=== PATIENT | female | born 1975 | race African-American/Black ===

== ENCOUNTER 2016-10-06 21:49 | Inpatient (IN) | payer MEDICAID ==
[~2016-10-06] VITALS: Ht 175.3 cm; Wt 114.1 kg
[~2016-10-06 21:49] MED LIST: CART240C4 PO; HYDR-2768 PO; LISI-363 PO; METH750T2 PO; NAPR-576 PO; NAPR250T57 PO; ULTR50TA PO
[2016-10-06 21:50] VITALS: BP 236/123; PULSE 101; RESP 20; TEMP 98.5; O2SAT 97
[2016-10-06 21:55] VITALS: BP 236/128; PULSE 93; RESP 32; TEMP 99; O2SAT 96
[2016-10-06 22:00] VITALS: O2SAT 96
[2016-10-06] MEDS ORDERED: HYDROCHLOROTHIAZIDE 25 MG TAB PO ONE (22:15)
[2016-10-06] MEDS ORDERED: LISINOPRIL 20 MG TAB PO ONE (22:15)
[2016-10-06] MEDS ORDERED: SODIUM CHLORIDE 0.9% FLUSH 10 ML FLUSH IV FLUSH PRN (22:15)
--- NOTE | 2016-10-06 22:17 | PD ---
HPI Chief Complaint: abdominal pain Time Seen by Provider: 22:17 Travel History International Travel<30 days: No Contact w/Intl Traveler<30days: No History of Present Illness HPI 41-year-old female with a history of hypertension, diabetes, chronic low back pain presents to the emergency department for evaluation of epigastric abdominal pain for one week. Patient states the pain has been intermittent for the past week and his but, more constant over the past 2 days. States that the pain is aggravated with eating and drinking. Describes the pain as a sharp burning pain in her epigastric region. Denies any fever, chills, nausea, vomiting, diarrhea, constipation, bloody stool, chest pain, shortness of breath , cough or cold symptoms, dysuria. Denies however has had irregular menses over the past month. Denies any prior abdominal surgeries. The patient does take NSAIDs daily for her chronic low back pain. States that she did not take her blood pressure medications today. No other complaints. PFSH Past Medical History Blood Disorders: No Cardiovascular Problems: Yes High Cholesterol: Yes Cerebrovascular Accident: No Diabetes: No Diminished Hearing: No Hypertension: Yes Musculoskeletal: Yes (LOW BACK PAIN) Myocardial Infarction: No Renal Failure: No Ulcer: No : 2 Para: 2 Miscarriage: 0 : 0 Past Surgical History Section: Yes (X 2) Social History Alcohol Use: Yes (SOCIAL) Tobacco Use: Yes (1PP WEEK) Substance Use: No Allergies-Medications (Allergen,Severity, Reaction): Coded Allergies: No Known Allergies (Verified , 04/21/16) Reported Meds & Prescriptions Reported Meds & Active Scripts Active Naproxen 500 Mg Tab 500 Mg PO Q12HR Robaxin (Methocarbamol) 750 Mg Tab 750 Mg PO Q8HR Ultram (Tramadol HCl) 50 Mg Tab 50 Mg PO Q4H PRN Hctz (Hydrochlorothiazide) 25 Mg Tab 25 Mg PO DAILY 30 Days Lisinopril 20 mg (Lisinopril) 20 Mg Tab 1 Tab PO DAILY 30 Days Cartia XT 240 mg (DILTIAZEM XT 240 mg (Cartia)) 240 Mg/24 Hr Cap 240 Mg PO DAILY 30 Days Reported Naprosyn (Naproxen) 250 Mg Tab 250 Mg PO Q6 PRN Review of Systems Except as stated in HPI: all other systems reviewed are Neg Physical Exam Narrative GENERAL: Well-nourished and well-developed pleasant female patient in moderate amount of pain but no acute distress. SKIN: Warm and dry. HEAD: Normocephalic and atraumatic. EYES: No injection, drainage, or hyphema noted. PERRLA. EOMI. ENT: No nasal drainage noted. Oropharynx is clear. NECK: Supple and the trachea is midline. CARDIOVASCULAR: Regular rate and rhythm. RESPIRATORY: Breath sounds are equal bilaterally with no accessory muscle use, wheezing, rhonchi, or crackles. GASTROINTESTINAL: Epigastric tenderness to palpation. No rebound tenderness or guarding. Negative Byrnes's sign. Negative McBurney's point. Abdomen is soft and nondistended. MUSCULOSKELETAL: No obvious deformities, swelling, cyanosis, or ecchymosis is present throughout the upper and lower extremities. Patient has full range of motion without any signs of neurovascular compromise. NEUROLOGICAL: Awake, alert, and oriented. Normal speech and gait. Cranial nerves are grossly intact. Data Data Last Documented VS Vital Signs Date Time Temp Pulse Resp B/P Pulse Ox O2 Delivery O2 Flow Rate FiO2 10/06/16 21:50 98.5 101 20 236/123 97 Room Air Orders Complete Blood Count With Diff (10/06/16 22:11) Comprehensive Metabolic Panel (10/06/16 22:11) Lipase (10/06/16 22:11) Iv Access Insert/Monitor (10/06/16 22:11) Ecg Monitoring (10/06/16 22:11) Oximetry (10/06/16 22:11) Sodium Chloride 0.9% Flush (Ns Flush) (10/06/16 22:15) Ed Urine Pregnancytest Poc (10/06/16 22:11) Lisinopril (Prinivil) (10/06/16 22:15) Hydrochlorothiazide (Hydrodiuril) (10/06/16 22:15) Chest, Single Ap (10/06/16 22:11) Ondansetron Inj (Zofran Inj) (10/06/16 22:45) Famotidine Inj (Pepcid Inj) (10/06/16 22:45) Morphine Inj (Morphine Inj) (10/06/16 22:45) Us Abdomen Gallbladder (10/06/16 ) Labs Laboratory Tests Test 10/06/16 22:15 White Blood Count 12.7 TH/MM3 Red Blood Count 4.85 MIL/MM3 Hemoglobin 13.2 GM/DL Hematocrit 41.1 % Mean Corpuscular Volume 84.9 FL Mean Corpuscular Hemoglobin 27.2 PG Mean Corpuscular Hemoglobin 32.0 % Concent Red Cell Distribution Width 13.5 % Platelet Count 251 TH/MM3 Mean Platelet Volume 9.7 FL Neutrophils (%) (Auto) 74.7 % Lymphocytes (%) (Auto) 18.3 % Monocytes (%) (Auto) 5.9 % Eosinophils (%) (Auto) 0.8 % Basophils (%) (Auto) 0.3 % Neutrophils # (Auto) 9.5 TH/MM3 Lymphocytes # (Auto) 2.3 TH/MM3 Monocytes # (Auto) 0.7 TH/MM3 Eosinophils # (Auto) 0.1 TH/MM3 Basophils # (Auto) 0.0 TH/MM3 CBC Comment DIFF FINAL Differential Comment Sodium Level 136 MEQ/L Potassium Level 4.1 MEQ/L Chloride Level 101 MEQ/L Carbon Dioxide Level 27.8 MEQ/L Anion Gap 7 MEQ/L Blood Urea Nitrogen 15 MG/DL Creatinine 0.91 MG/DL Estimat Glomerular Filtration 83 ML/MIN Rate Random Glucose 302 MG/DL Calcium Level 9.6 MG/DL Total Bilirubin 0.3 MG/DL Aspartate Amino Transf 10 U/L (AST/SGOT) Alanine Aminotransferase 21 U/L (ALT/SGPT) Alkaline Phosphatase 86 U/L Total Protein 8.6 GM/DL Albumin 3.8 GM/DL Lipase 885 U/L [facility] Medical Decision Making Medical Screen Exam Complete: Yes Emergency Medical Condition: Yes Differential Diagnosis Gastritis versus PUD versus gastroenteritis versus cholecystitis versus pancreatitis Narrative Course 41-year-old female presents to the emergency department for evaluation of epigastric abdominal pain intermittently after eating for the past week. Patient is afebrile. She is tachycardic with a heart rate of 101 bpm. She is hypertensive with a blood pressure 236/123, she admittedly did not take her antihypertensive medications today. Otherwise vital signs within normal limits. She is epigastric tenderness to palpation. Nail signs. IV access is obtained, labs were drawn and sent. ED urine test is negative. Patient is administered her regular doses of lisinopril 20 mg and I do course Dyazide 25 mg orally as well as morphine, Pepcid and Zofran. CBC shows elevated white blood count of 12.7, otherwise unremarkable. CMP shows hyperglycemia with a glucose of 302. Lipase is elevated 885. Gallbladder ultrasound has been ordered and is pending. Patient signed out to Dr. Lau who will assume care of the patient and disposition. Carri Meza Oct 06, 2016 22:17
--- NOTE | 2016-10-06 22:27 | RADRPT ---
EXAM DATE/TIME: 10/06/2016 22:23 [facility] COMPARISON: CHEST SINGLE AP, November 03, 2015, 12:11. INDICATIONS : Chest and upper abdominal pain. MEDICAL HISTORY : None. SURGICAL HISTORY : None. ENCOUNTER: Initial ACUITY: 2 days PAIN SCORE: 10/10 LOCATION: chest FINDINGS: A single view of the chest demonstrates the lungs to be symmetrically aerated without evidence of mas s, infiltrate or effusion. The cardiomediastinal contours are unremarkable. Osseous structures are intact. No free air is noted. CONCLUSION: No acute disease. No free air is noted. Anthony Fairbanks MD on October 06, 2016 at 22:25 Board Certified Radiologist. This report was verified electronically.
[2016-10-06 22:28] LABS: AUTOMATED NEUTROPHIL # 9.5 TH/MM3 (1.8-7.7); BASOPHIL % 0.3 % (0.0-2.0); EOSINOPHIL # 0.1 TH/MM3 (0-0.4); EOSINOPHIL % 0.8 % (0.0-4.0); HEMATOCRIT 41.1 % (35.0-46.0); HEMO FLAGS DIFF FINAL; LYMPH % 18.3 % (9.0-44.0); LYMPHOCYTE # 2.3 TH/MM3 (1.0-4.8); MEAN CELL VOLUME 84.9 FL (80.0-100.0); MEAN CORPUSCULAR HEMOGLOBIN 27.2 PG (27.0-34.0); MONO % 5.9 % (0.0-8.0); NEUT % 74.7 % (16.0-70.0); PLATELET COUNT 251 TH/MM3 (150-450); RED BLOOD COUNT 4.85 MIL/MM3 (4.00-5.30); RED CELL DISTRIBUTION WIDTH 13.5 % (11.6-17.2); WHITE BLOOD COUNT 12.7 TH/MM3 (4.0-11.0)
[2016-10-06] MEDS ORDERED: MORPHINE SULFATE 4 MG/ML INJ IV PUSH ONE (22:45)
[2016-10-06] MEDS ORDERED: ONDANSETRON HCL 4 MG/2 ML VIAL IVP ONE (22:45)
[2016-10-06] MEDS ORDERED: FAMOTIDINE 20 MG/2 ML VIAL IV PUSH ONE (22:45)
[2016-10-06 22:47] LABS: ALT (GPT) 21 U/L (10-53); ANION GAP 7 MEQ/L (5-15); AST (GOT) 10 U/L (15-37); BICARBONATE 27.8 MEQ/L (21.0-32.0); BLOOD UREA NITROGEN 15 MG/DL (7-18); CHLORIDE 101 MEQ/L (98-107); GLOMERULAR FILTRATION RATE 83 ML/MIN (>89); POTASSIUM 4.1 MEQ/L (3.5-5.1); SODIUM (NA) 136 MEQ/L (136-145)
[2016-10-06 22:49] LABS: ALKALINE PHOSPHATASE 86 U/L (45-117); TOTAL BILIRUBIN ADULT 0.3 MG/DL (0.2-1.0)
[2016-10-06 23:01] VITALS: BP 192/106; PULSE 85
[2016-10-06] MEDS ORDERED: NAPR500 PO (23:02)
[2016-10-06] MEDS ORDERED: LISI-515 PO (23:02)
[2016-10-06] MEDS ORDERED: HYDR25TA5 PO (23:02)
[2016-10-06] MEDS ORDERED: CART240C PO (23:02)
[2016-10-07] VITALS (11 sets, daily range): BP systolic 159–215; BP diastolic 78–114; PULSE 76–96; RESP 16–26; TEMP 97.3–98; O2SAT 97–99
--- NOTE | 2016-10-07 00:28 | RADRPT ---
EXAM DATE/TIME: 10/06/2016 23:48 [facility] COMPARISON: No previous studies available for comparison. INDICATIONS : Right upper quadrant pain. MEDICAL HISTORY : Hypertension. Hypercholesterolemia. Lower back pain. SURGICAL HISTORY : section. ENCOUNTER: Initial ACUITY: 1 week PAIN SCORE: 10/10 LOCATION: Right upper quadrant MEASUREMENTS: LIVER: 18.8 cm length COMMON DUCT: 7 mm RIGHT KIDNEY: 11.1 x 4.7 x 4.7 cm FINDINGS: LIVER: Normal echotexture without focal lesion or ductal dilatation. Mildly prominent in size. COMMON DUCT: No intraluminal mass or stone visualized. GALLBLADDER: Contains no stones, demonstrates no wall thickening or pericholecystic fluid. PANCREAS: The visualized portions are within normal limits. RIGHT KIDNEY: No evidence of hydronephrosis, stone, or mass. CONCLUSION: 1. Liver mildly enlarged to 19 cm. No gallstones or biliary ductal dilatation. No free fluid. Right k idney unremarkable. Kenn Caraballo MD on October 07, 2016 at 0:20 Board Certified Radiologist. This report was verified electronically.
[2016-10-07] MEDS ORDERED: HYDROmorphone HCL PF 1 MG/ML VIAL IV PUSH ONE (00:45)
--- NOTE | 2016-10-07 00:48 | PD ---
Data Data Last Documented VS Vital Signs Date Time Temp Pulse Resp B/P Pulse Ox O2 Delivery O2 Flow Rate FiO2 10/06/16 23:01 85 192/106 10/06/16 21:55 99.0 32 96 10/06/16 21:50 Room Air Orders Complete Blood Count With Diff (10/06/16 22:11) Comprehensive Metabolic Panel (10/06/16 22:11) Lipase (10/06/16 22:11) Iv Access Insert/Monitor (10/06/16 22:11) Ecg Monitoring (10/06/16 22:11) Oximetry (10/06/16 22:11) Sodium Chloride 0.9% Flush (Ns Flush) (10/06/16 22:15) Ed Urine Pregnancytest Poc (10/06/16 22:11) Lisinopril (Prinivil) (10/06/16 22:15) Hydrochlorothiazide (Hydrodiuril) (10/06/16 22:15) Chest, Single Ap (10/06/16 22:11) Ondansetron Inj (Zofran Inj) (10/06/16 22:45) Famotidine Inj (Pepcid Inj) (10/06/16 22:45) Morphine Inj (Morphine Inj) (10/06/16 22:45) Us Abdomen Gallbladder (10/06/16 ) Hydromorphone Pf Inj (Dilaudid Pf Inj) (10/07/16 00:45) Labs Laboratory Tests Test 10/06/16 22:15 White Blood Count 12.7 TH/MM3 Red Blood Count 4.85 MIL/MM3 Hemoglobin 13.2 GM/DL Hematocrit 41.1 % Mean Corpuscular Volume 84.9 FL Mean Corpuscular Hemoglobin 27.2 PG Mean Corpuscular Hemoglobin 32.0 % Concent Red Cell Distribution Width 13.5 % Platelet Count 251 TH/MM3 Mean Platelet Volume 9.7 FL Neutrophils (%) (Auto) 74.7 % Lymphocytes (%) (Auto) 18.3 % Monocytes (%) (Auto) 5.9 % Eosinophils (%) (Auto) 0.8 % Basophils (%) (Auto) 0.3 % Neutrophils # (Auto) 9.5 TH/MM3 Lymphocytes # (Auto) 2.3 TH/MM3 Monocytes # (Auto) 0.7 TH/MM3 Eosinophils # (Auto) 0.1 TH/MM3 Basophils # (Auto) 0.0 TH/MM3 CBC Comment DIFF FINAL Differential Comment Sodium Level 136 MEQ/L Potassium Level 4.1 MEQ/L Chloride Level 101 MEQ/L Carbon Dioxide Level 27.8 MEQ/L Anion Gap 7 MEQ/L Blood Urea Nitrogen 15 MG/DL Creatinine 0.91 MG/DL Estimat Glomerular Filtration 83 ML/MIN Rate Random Glucose 302 MG/DL Calcium Level 9.6 MG/DL Total Bilirubin 0.3 MG/DL Aspartate Amino Transf 10 U/L (AST/SGOT) Alanine Aminotransferase 21 U/L (ALT/SGPT) Alkaline Phosphatase 86 U/L Total Protein 8.6 GM/DL Albumin 3.8 GM/DL Lipase 885 U/L [facility] Medical Record Reviewed: Yes Supervised Visit with DIAZ: Yes Narrative Course I, Dr. Lau, have reviewed the advance practice practitioner's documentation and am in agreement, met with the patient face to face, made the diagnosis, and the medical decision making was done by me. *My assessment and Findings: CBC & BMP Diagram 10/06/16 22:15 LFTs normal Lipase 885 Last 24 hours Impressions Chest X-Ray 10/06/16 2211 Signed Impressions: Service Date/Time: Thursday, October 06, 2016 22:23 - CONCLUSION: No acute disease. No free air is noted. Anthony Fairbanks MD Gall Bladder Ultrasound 10/06/16 0000 Signed Impressions: Service Date/Time: Thursday, October 06, 2016 23:48 - CONCLUSION: 1. Liver mildly enlarged to 19 cm. No gallstones or biliary ductal dilatation. No free fluid. Right kidney unremarkable. Kenn Caraballo MD Reassessed at 1246AM: persistent pain, worse with palpation. Pt has pancreatitis. No evidence GB disease on ultrasound. Admission for IVF and pain control. Discussed with Dr. Peralta for [facility]. Diagnosis Primary Impression: Pancreatitis Qualified Code: K85.90 - Acute pancreatitis, unspecified complication status, unspecified pancreatitis type Admitting Information Admitting Physician Requests: Jordan Brice MD Oct 07, 2016 00:48
[2016-10-07] MEDS ORDERED: ONDANSETRON HCL 4 MG/2 ML VIAL IVP PRN (01:15)
[2016-10-07] MEDS ORDERED: BISACODYL 10 MG SUPP RECTAL PRN (01:15)
[2016-10-07] MEDS ORDERED: NALOXONE HCL 0.4 MG/ML AMP IV PRN ×2 (01:15)
[2016-10-07] MEDS ORDERED: PROCHLORPERAZINE 25 MG SUPP RECTAL PRN (01:15)
[2016-10-07] MEDS ORDERED: SODIUM CHLORIDE 0.9% FLUSH 10 ML FLUSH IV FLUSH PRN (01:15)
[2016-10-07] MEDS: HYDROmorphone HCL PF 1 MG/ML VIAL IV PRN ×6 (01:18→20:24)
[2016-10-07] MEDS: SODIUM CHLOR 0.9% 1000 ML INJ 1,000 ML IV SCH ×4 (01:24→22:25)
[2016-10-07] MEDS ORDERED: ENOXAPARIN SODIUM 40 MG/0.4 ML SYRINGE SQ SCH (02:00)
[2016-10-07] MEDS: oxyCODONE/ACETAMINOPHEN 5 MG/325 MG TAB PO PRN ×2 (03:47→10:23)
[2016-10-07] MEDS: cloNIDine HCL 0.1 MG TAB PO PRN ×2 (03:49→10:23)
[2016-10-07] MEDS ORDERED: PANTOPRAZOLE SODIUM 40 MG VIAL IV PUSH ONE (06:15)
--- NOTE | 2016-10-07 06:34 | HHI.HP ---
[facility] Douglas Morales MD Admission Diagnosis Acute Pancreatitis Diagnoses: Travel History International Travel<30 Days: No Contact w/Intl Traveler <30 Da: No Traveled to Known Affected Are: No History of Present Illness 41-year-old female with a history of hypertension who presents with a one-week history of sharp, nonradiating, burning epigastric pain, worse with eating or drinking. Accompanied by generalized fatigue over the past week. Denies any chest pain, shortness of breath, nausea, vomiting, diarrhea, constipation. She does take naproxen on a regular basis for back pain. Review of Systems Performed and negative except for history of present illness and past medical history. Past Family Social History Past Medical History Hypertension Diabetes Low back pain Past Surgical History Reported Medications Reported Meds & Active Scripts Active Naproxen 500 Mg Tab 500 Mg PO Q12HR Robaxin (Methocarbamol) 750 Mg Tab 750 Mg PO Q8HR Ultram (Tramadol HCl) 50 Mg Tab 50 Mg PO Q4H PRN Hctz (Hydrochlorothiazide) 25 Mg Tab 25 Mg PO DAILY 30 Days Lisinopril 20 mg (Lisinopril) 20 Mg Tab 1 Tab PO DAILY 30 Days Cartia XT 240 mg (DILTIAZEM XT 240 mg (Cartia)) 240 Mg/24 Hr Cap 240 Mg PO DAILY 30 Days Reported Naprosyn (Naproxen) 250 Mg Tab 250 Mg PO Q6 PRN Allergies: Coded Allergies: No Known Allergies (Verified , 04/21/16) Family History Mother with diabetes, hypertension, kidney disease. Father uncertain. Social History Patient smokes 3 cigarettes per day for the past 12 years. Occasional alcohol use on special occasions. Positive marijuana use. Last time one week ago Physical Exam Vital Signs Vital Signs Date Time Temp Pulse Resp B/P Pulse Ox O2 Delivery O2 Flow Rate FiO2 10/07/16 05:22 18 10/07/16 03:50 96 18 173/85 99 Room Air 10/07/16 02:50 92 24 189/85 10/07/16 01:15 96 26 215/114 10/07/16 00:40 88 23 188/102 10/06/16 23:01 85 192/106 10/06/16 22:00 96 Room Air 10/06/16 21:55 99.0 93 32 236/128 96 10/06/16 21:50 98.5 101 20 236/123 97 Room Air Physical Exam GENERAL: This is a well-nourished, well-developed patient, appears in pain. He is oriented 3. Speech is clear. SKIN: No rashes, ecchymoses or lesions. Cool and dry. HEAD: Atraumatic. Normocephalic. No temporal or scalp tenderness. EYES: Pupils equal round and reactive. Extraocular motions intact. No scleral icterus. No injection or drainage. ENT: Nose without bleeding, purulent drainage or septal hematoma. Throat without erythema, tonsillar hypertrophy or exudate. Uvula midline. Airway patent. NECK: Trachea midline. No JVD or lymphadenopathy. Supple, nontender, no meningeal signs. CARDIOVASCULAR: Regular rate and rhythm without murmurs, gallops, or rubs. RESPIRATORY: Clear to auscultation. Breath sounds equal bilaterally. No wheezes , rales, or rhonchi. GASTROINTESTINAL: Abdomen soft, nondistended. No hepato-splenomegaly, or palpable masses. Patient does have epigastric tenderness to moderate palpation. No guarding. MUSCULOSKELETAL: Extremities without clubbing, cyanosis, or edema. No joint tenderness, effusion, or edema noted. No calf tenderness. Negative Homans sign bilaterally. NEUROLOGICAL: Awake and alert. Cranial nerves II through XII intact. Motor and sensory grossly within normal limits. Five out of 5 muscle strength in all muscle groups. Normal speech. Laboratory Laboratory Tests Test 10/06/16 22:15 White Blood Count 12.7 Red Blood Count 4.85 Hemoglobin 13.2 Hematocrit 41.1 Mean Corpuscular Volume 84.9 Mean Corpuscular Hemoglobin 27.2 Mean Corpuscular Hemoglobin 32.0 Concent Red Cell Distribution Width 13.5 Platelet Count 251 Mean Platelet Volume 9.7 Neutrophils (%) (Auto) 74.7 Lymphocytes (%) (Auto) 18.3 Monocytes (%) (Auto) 5.9 Eosinophils (%) (Auto) 0.8 Basophils (%) (Auto) 0.3 Neutrophils # (Auto) 9.5 Lymphocytes # (Auto) 2.3 Monocytes # (Auto) 0.7 Eosinophils # (Auto) 0.1 Basophils # (Auto) 0.0 CBC Comment DIFF FINAL Differential Comment Sodium Level 136 Potassium Level 4.1 Chloride Level 101 Carbon Dioxide Level 27.8 Anion Gap 7 Blood Urea Nitrogen 15 Creatinine 0.91 Estimat Glomerular Filtration 83 Rate Random Glucose 302 Calcium Level 9.6 Total Bilirubin 0.3 Aspartate Amino Transf 10 (AST/SGOT) Alanine Aminotransferase 21 (ALT/SGPT) Alkaline Phosphatase 86 Total Protein 8.6 Albumin 3.8 Lipase 885 Result Diagram: 10/06/16221410/06/162214 Imaging Last Impressions Chest X-Ray 10/06/162210 Signed Impressions: Service Date/Time: Thursday, October 06, 2016 22:23 - CONCLUSION: No acute disease. No free air is noted. Anthony Fairbanks MD Gall Bladder Ultrasound 10/06/16 0000 Signed Impressions: Service Date/Time: Thursday, October 06, 2016 23:48 - CONCLUSION: 1. Liver mildly enlarged to 19 cm. No gallstones or biliary ductal dilatation. No free fluid. Right kidney unremarkable. Kenn Caraballo MD Assessment and Plan Assessment and Plan //Pancreatitis //Epigastric pain //Leukocytosis. Secondary to pancreatitis -Lipase in the 800s. Mild liver enlargement, no gallstones or biliary ductal dilation. -IV Protonix due to the possibility of gastric ulcer from chronic NSAID use. Hold NSAIDs. -Triglyceride level in the morning -IV fluids. Watch her electrolytes. Pain control. //Accelerated hypertension. Likely secondary to missing home medications. Restart home medications. Hold hydrochlorothiazide due to acute cryptitis. Clonidine when necessary for systolic blood pressure over 180. //Marijuana and tobacco abuse. Counseling provided. Cessation strongly advised. //Diabetes mellitus. //Hypoglycemia on admission. -Insulin sliding scale. //Prophylaxis. SCDs. Lovenox. Discussed Condition With Patient, nurse, ED physician. Physician Certification 2 Midnight Certification Type: Admission for Inpatient Services Order for Inpatient Services The services are ordered in accordance with Medicare regulations or non- Medicare payer requirements, as applicable. In the case of services not specified as inpatient-only, they are appropriately provided as inpatient services in accordance with the 2-midnight benchmark. Estimated LOS (days): 3 days is the estimated time the patient will need to remain in the hospital, assuming treatment plan goals are met and no additional complications. Post-Hospital Plan: Not yet determined Clark Peralta MD Oct 07, 2016 06:34
[2016-10-07] MEDS ORDERED: INSULIN ASPART SUPPLEMENTAL SCALE SQ SCH (07:00)
[2016-10-07] MEDS ORDERED: GLUCAGON 1 MG/ML VIAL OTHER PRN (07:45)
[2016-10-07] MEDS ORDERED: DEXTROSE 50% IN WATER 50 ML VIAL(D50) IV PUSH PRN (07:45)
[2016-10-07] MEDS: SODIUM CHLORIDE 0.9% FLUSH 10 ML FLUSH IV FLUSH SCH ×2 (09:00→20:23)
[2016-10-07] MEDS ORDERED: LISINOPRIL 20 MG TAB PO SCH (09:00)
[2016-10-07] MEDS: DILTIAZEM-CD 240 MG CAP ER PO SCH (09:05)
[2016-10-07] MEDS: INSULIN ASPART SUPPLEMENTAL SCALE SQ SCH ×3 (11:05→20:23)
[2016-10-07] MEDS ORDERED: ENALAPRILAT 1.25 MG/ML VIAL IV PUSH PRN (12:00)
[2016-10-07] MEDS ORDERED: ENALAPRILAT 1.25 MG/ML VIAL IV PUSH ONE (12:30)
[2016-10-07] MEDS: METOCLOPRAMIDE HCL 10 MG/2 ML VIAL IV PUSH PRN ×2 (13:04→18:53)
--- NOTE | 2016-10-07 13:35 | EKG ---
Date Performed: 10/07/2016 Time Performed: 08:06:30 PTAGE: 41 years EKG: Sinus rhythm NORMAL ECG INTERPRETATION BASED ON A DEFAULT AGE OF 42 YEARS PREVIOUS TRACING : 10/06/2016 22.02 Compared to prior tracing no significant change DOCTOR: Robbie Redman Interpretating Date/Time 10/07/2016 13:33:30
--- NOTE | 2016-10-07 13:35 | EKG ---
Date Performed: 10/06/2016 Time Performed: 22:02:12 PTAGE: 41 years EKG: Sinus rhythm POSSIBLE LEFT ATRIAL ENLARGEMENT BORDERLINE ECG PREVIOUS TRACING : 11/03/2015 12.30 Compared to prior tracing no significant change DOCTOR: Robbie Redman Interpretating Date/Time 10/07/2016 13:33:39
--- NOTE | 2016-10-07 14:12 | HHI.PR ---
Subjective Remarks Follow-up for abdominal pain. The patient continues to complain of epigastric abdominal discomfort. She tried eccentric and broth for lunch, but vomited that back up. She denies any diarrhea or dark stools. She states that she was prescribed naproxen twice a day as needed, but had cut back because someone told her that it could cause internal bleeding. She states she takes the naproxen less than every other day. She does smoke about half a pack daily and occasionally drink alcohol, none recently. She is recently diagnosed with diabetes, but she is not sure what medication she takes for that though. Objective Vitals Vital Signs Date Time Temp Pulse Resp B/P Pulse Ox O2 Delivery O2 Flow Rate FiO2 10/07/16 13:03 159/78 10/07/16 11:40 88 16 188/106 98 Room Air 10/07/16 09:04 87 17 177/82 97 Room Air 10/07/16 08:30 82 18 188/92 97 Room Air 10/07/16 06:29 18 10/07/16 05:22 18 10/07/16 03:50 96 18 173/85 99 Room Air 10/07/16 02:50 92 24 189/85 10/07/16 01:15 96 26 215/114 10/07/16 00:40 88 23 188/102 10/06/16 23:01 85 192/106 10/06/16 22:00 96 Room Air 10/06/16 21:55 99.0 93 32 236/128 96 10/06/16 21:50 98.5 101 20 236/123 97 Room Air Result Diagram: 10/06/16221410/06/162214 Imaging Last Impressions Chest X-Ray 10/06/162210 Signed Impressions: Service Date/Time: Thursday, October 06, 2016 22:23 - CONCLUSION: No acute disease. No free air is noted. Anthony Fairbanks MD Gall Bladder Ultrasound 10/06/16 0000 Signed Impressions: Service Date/Time: Thursday, October 06, 2016 23:48 - CONCLUSION: 1. Liver mildly enlarged to 19 cm. No gallstones or biliary ductal dilatation. No free fluid. Right kidney unremarkable. Kenn Caraballo MD Objective Remarks GENERAL: Well-developed well-nourished obese. In no acute distress. SKIN: Warm and dry. No lesions noted. HEENT: Normocephalic. Pupils equal and round. Mucous membranes pink and moist. CARDIOVASCULAR: Regular rate and rhythm. No murmur appreciated. RESPIRATORY: No accessory muscle use. Clear to auscultation. Breath sounds equal bilaterally. GASTROINTESTINAL: Abdomen soft, moderate epigastric TTP, nondistended. Bowel sounds x4. MUSCULOSKELETAL: No obvious deformities. No clubbing or cyanosis. No edema. NEUROLOGICAL: Awake and alert. No focal neurological deficits. Moves upper and lower extremities spontaneously. Normal speech. PSYCHIATRIC: Appropriate mood and affect; insight and judgment normal. A/P Problem List: (1) Pancreatitis ICD Code: K85.90 Status: Acute (2) Abdominal pain ICD Code: R10.9 Status: Acute Assessment and Plan 41-year-old female with a history of hypertension and diabetes who presented with abdominal pain //Pancreatitis/Epigastric pain Reviewed: Doppler ultrasound with mildly enlarged liver, but no gallstones or biliary ductal dilation. WBC 12.7. Tmax 99.0. Lipase 885. Triglycerides 167. Glucose 302. -Ice chips and sips of water, advance to clear liquids as tolerated -IV Protonix due to the possibility of gastric ulcer from chronic NSAID use. Hold NSAIDs. Consult gastroenterology. -IV fluids. Monitor electrolytes. -Pain control with oral and intravenous narcotics as needed. -Follow-up lipase in the a.m. //Accelerated hypertension. Likely secondary to missing home medications. Improved some with IV Vasotec 1.- -Resume home lisinopril and diltiazem. -Holding HCTZ with decreased intake and on IVF. -IV Vasotec and clonidine as needed. -Monitor and adjust medications as needed. //Marijuana and tobacco abuse. Cessation counseling. //Diabetes mellitus. //Hyperglycemia on admission. -Insulin sliding scale. -Reconcile and resume home oral hypoglycemic when indicated //Prophylaxis. SCDs. Lovenox. Problem Qualifiers (1) Pancreatitis: Qualified Code: K85.90 - Acute pancreatitis, unspecified complication status, unspecified pancreatitis type (2) Abdominal pain: Qualified Code: R10.13 - Epigastric pain Arturo Marcus Oct 07, 2016 14:12 Minerva Currie MD Oct 07, 2016 14:26
[2016-10-07] MEDS ORDERED: LISI40TA PO (14:28)
[2016-10-07] MEDS ORDERED: ZOCO20TA PO (14:30)
[2016-10-07] MEDS ORDERED: CANA1TAB3 PO (14:30)
[2016-10-07] MEDS ORDERED: GABA300C5 PO (14:30)
--- NOTE | 2016-10-07 17:05 | PD.CONS ---
HPI History of Present Illness This is a 41 year old [lady] came to the ER with severe epigastric pain. She had been having this pain for a week prior. The pain is a 20 out of 10. The pain is sharp and gets worse whenever she tries to eat or drink. The pain radiates across her upper abdomen. She denies any change in diet or routine at onset of pain. She has never had this pain before. No nausea, vomiting, change in bowel habits. She does admit to occasional acid reflux when drinking acidic beverages. She admits to formerly taking up to 4 naproxen daily for back pain but not in the last year. She smokes 1/2ppd and drinks occasionally. (Joselin Cote) PFSH Past Medical History Hypertension Diabetes Low back pain Past Surgical History (Joselin Cote) Coded Allergies: No Known Allergies (Verified , 04/21/16) Medications Allergies Coded Allergies Type Severity Reaction Last Updated Verified No Known Allergies 04/21/16 Yes Active Scripts Medications Dose Route/Sig Days Date Category Dose Instructions Gabapentin 300 Mg Cap 300 Mg PO TID 10/07/16 Reported Zocor (Simvastatin) 20 Mg Tab 20 Mg PO HS 10/07/16 Reported Invokamet (Canagliflozin-Metformin) 150-500 Mg Tab 1 Tab PO BID 10/07/16 Reported Take with meals. Avoid ethanol. Lisinopril 40 Mg Tab 40 Mg PO DAILY 10/07/16 Reported Naprosyn (Naproxen) 500 Mg Tab 500 Mg PO Q12HR PRN 10/06/16 Reported Hydrochlorothiazide 25 Mg Tab 25 Mg PO DAILY 10/06/16 Reported Cartia Xt (Diltiazem ER 24 HR) 240 Mg Caper 240 Mg PO DAILY 10/06/16 Reported Family History Mother with diabetes, hypertension, kidney disease. Father uncertain. Social History Patient smokes 1/2 ppd per day for the past 12 years. Occasional alcohol use. Positive marijuana use. Last time one week ago (Joselin Cote) Review of Systems Constitutional: DENIES: Fever, Weight loss, Chills, Change in appetite Ears, nose, mouth, throat: DENIES: Hoarseness Respiratory: DENIES: Cough, Shortness of breath Cardiovascular: DENIES: Chest pain, Lower Extremity Edema Gastrointestinal: COMPLAINS OF: Abdominal pain, DENIES: Black stools, Bloody stools, Constipation, Diarrhea, Nausea, Vomiting Musculoskeletal: COMPLAINS OF: Back pain Integumentary: DENIES: Rash, Jaundice (Joselin Cote) GI Exam Vitals I&O Vital Signs Date Time Temp Pulse Resp B/P Pulse Ox O2 Delivery O2 Flow Rate FiO2 10/07/16 13:03 159/78 10/07/16 11:40 88 16 188/106 98 Room Air 10/07/16 09:04 87 17 177/82 97 Room Air 10/07/16 08:30 82 18 188/92 97 Room Air 10/07/16 06:29 18 10/07/16 05:22 18 10/07/16 03:50 96 18 173/85 99 Room Air 10/07/16 02:50 92 24 189/85 10/07/16 01:15 96 26 215/114 10/07/16 00:40 88 23 188/102 10/06/16 23:01 85 192/106 10/06/16 22:00 96 Room Air 10/06/16 21:55 99.0 93 32 236/128 96 10/06/16 21:50 98.5 101 20 236/123 97 Room Air Imaging Last Impressions Chest X-Ray 10/06/16 2211 Signed Impressions: Service Date/Time: Thursday, October 06, 2016 22:23 - CONCLUSION: No acute disease. No free air is noted. Anthony Fairbanks MD Gall Bladder Ultrasound 10/06/16 0000 Signed Impressions: Service Date/Time: Thursday, October 06, 2016 23:48 - CONCLUSION: 1. Liver mildly enlarged to 19 cm. No gallstones or biliary ductal dilatation. No free fluid. Right kidney unremarkable. Kenn Caraballo MD Laboratory Test 10/06/16 10/07/16 22:15 05:10 White Blood Count 12.7 TH/MM3 Red Blood Count 4.85 MIL/MM3 Hemoglobin 13.2 GM/DL Hematocrit 41.1 % Mean Corpuscular Volume 84.9 FL Mean Corpuscular Hemoglobin 27.2 PG Mean Corpuscular Hemoglobin 32.0 % Concent Red Cell Distribution Width 13.5 % Platelet Count 251 TH/MM3 Mean Platelet Volume 9.7 FL Neutrophils (%) (Auto) 74.7 % Lymphocytes (%) (Auto) 18.3 % Monocytes (%) (Auto) 5.9 % Eosinophils (%) (Auto) 0.8 % Basophils (%) (Auto) 0.3 % Neutrophils # (Auto) 9.5 TH/MM3 Lymphocytes # (Auto) 2.3 TH/MM3 Monocytes # (Auto) 0.7 TH/MM3 Eosinophils # (Auto) 0.1 TH/MM3 Basophils # (Auto) 0.0 TH/MM3 CBC Comment DIFF FINAL Differential Comment Sodium Level 136 MEQ/L Potassium Level 4.1 MEQ/L Chloride Level 101 MEQ/L Carbon Dioxide Level 27.8 MEQ/L Anion Gap 7 MEQ/L Blood Urea Nitrogen 15 MG/DL Creatinine 0.91 MG/DL Estimat Glomerular Filtration 83 ML/MIN Rate Random Glucose 302 MG/DL Calcium Level 9.6 MG/DL Total Bilirubin 0.3 MG/DL Aspartate Amino Transf 10 U/L (AST/SGOT) Alanine Aminotransferase 21 U/L (ALT/SGPT) Alkaline Phosphatase 86 U/L Total Protein 8.6 GM/DL Albumin 3.8 GM/DL Lipase 885 U/L Triglycerides Level 167 MG/DL Physical Examination HEENT: EOMI; normocephalic; atraumatic; no jaundice. NECK: Neck is supple CHEST: Chest is clear to auscultation and percussion. CARDIAC: Regular rate and rhythm with no murmur gallop or rubs. ABDOMEN: TTP upper abdomen and epigastric area, Soft, nondistended; no hepatosplenomegaly; bowel sounds are present in all four quadrants. EXTREMITIES: No clubbing, cyanosis, or edema. SKIN: Normal; no rash; no jaundice. CAP SEWER: No focal deficits; alert and oriented times three. (Joselin Cote [facility]) Assessment and Plan Plan ASSESSMENT - Epigastric pain- peptic ulcer vs pancreatitis. 10/06 GB US --- > liver mildly enlarged to 19cm, no gallstones or biliary ductal dilatation, no free fluid, right kidney unremarkable. LFTs WNL. Hx NSAID use. - Elevated lipase 885, unk significance PLAN - Plan for EGD in am - obtain consents - CT abdomen abdomen & pelvis with IV contrast - lipase, CBC, CMP in am - continue PPI - await results of above This pt was examined by myself and Dr Tubbs and this note is written on his behalf (Joselin Cote) Physician Comments Patient seen and examined Agree with above Continue with current supportive care Monitor labs Plan for an EGD tomorrow (Sathish Tubbs MD) Joselin Cote Oct 07, 2016 17:05 Sathish Tubbs MD Oct 07, 2016 20:06
[2016-10-07] MEDS: GABAPENTIN 300 MG CAP PO SCH (17:27)
[2016-10-07] MEDS ORDERED: IOHEXOL 350 MG/ML 10 ML VIAL (for RAD DIAG) IV ONE (18:17)
--- NOTE | 2016-10-07 18:55 | RADRPT ---
EXAM DATE/TIME: 10/07/2016 17:59 [place] COMPARISON: No previous studies available for comparison. INDICATIONS : Diffuse abdomen pain. IV CONTRAST: 88 cc Omnipaque 350 (iohexol) IV ORAL CONTRAST: No oral contrast ingested. RADIATION DOSE: 16.80 CTDIvol (mGy) MEDICAL HISTORY : Hypertension. SURGICAL HISTORY : section. ENCOUNTER: Initial ACUITY: 3 days PAIN SCALE: 10/10 LOCATION: Abdomen TECHNIQUE: Volumetric scanning of the abdomen and pelvis was performed. Using automated exposure control and adjustment of the mA and/or kV according to patient size, radiation dose was kept as low as reasonably achievable to obtain optimal diagnostic quality images. FINDINGS: LOWER LUNGS: The visualized lower lungs are clear. LIVER: Mild hepatomegaly is noted. Homogeneous density without lesion. There is no dilation of t he biliary tree. No calcified gallstones. SPLEEN: Normal size without lesion. PANCREAS: Within normal limits. KIDNEYS: Normal in size and shape. There is no mass, stone or hydronephrosis. ADRENAL GLANDS: Within normal limits. VASCULAR: There is no aortic aneurysm. BOWEL/MESENTERY: Inflammatory changes are noted adjacent to the proximal and extending inferiorly in the region the retroperitoneum suggesting acute duodenitis. Clinical correlation is recommended. No small or large bowel obstruction is noted. The appendix is normal. ABDOMINAL WALL: Within normal limits. RETROPERITONEUM: There is no lymphadenopathy. BLADDER: No wall thickening or mass. REPRODUCTIVE: Within normal limits. INGUINAL: There is no lymphadenopathy or hernia. MUSCULOSKELETAL: Within normal limits for patient age. CONCLUSION: 1. Inflammatory changes are noted adjacent to the proximal and extending inferiorly in the region the retroperitoneum suggesting acute duodenitis. Clinical correlation is recommended. 2. Mild hepatomegaly. Anthony Fairbanks MD on October 07, 2016 at 18:48 Board Certified Radiologist. This report was verified electronically.
[2016-10-07] MEDS: PRAVASTATIN SOD 40 MG TAB PO SCH (20:22)
[2016-10-07] MEDS: LISINOPRIL 20 MG TAB PO SCH (20:22)
[2016-10-07] MEDS: PANTOPRAZOLE SODIUM 40 MG VIAL IV PUSH SCH (20:22)
[2016-10-07 21:32] LABS: HEMOGLOBIN A1b 2.6 %; HEMOGLOBIN Ao 78.1 %; HEMOGLOBIN LA1C 3.2 %; HEMOGLOBIN P3 4.8 %
[2016-10-07 22:45] LABS: BETA HCG QUANT LESS THAN 1 MIU/ML (0-5)
[2016-10-08] VITALS: BP 186/108; PULSE 79; RESP 20; TEMP 98.6; O2SAT 97
[2016-10-08] MEDS: cloNIDine HCL 0.1 MG TAB PO PRN ×2 (00:16→09:32)
[2016-10-08] MEDS: HYDROmorphone HCL PF 1 MG/ML VIAL IV PRN ×4 (01:47→14:23)
[2016-10-08 04:00] VITALS: BP 190/93; PULSE 79; RESP 20; TEMP 98.1; O2SAT 96
[2016-10-08 05:28] LABS: AUTOMATED NEUTROPHIL # 6.6 TH/MM3 (1.8-7.7); BASOPHIL % 0.2 % (0.0-2.0); EOSINOPHIL # 0.1 TH/MM3 (0-0.4); EOSINOPHIL % 1.2 % (0.0-4.0); HEMATOCRIT 36.1 % (35.0-46.0); HEMO FLAGS DIFF FINAL; LYMPH % 21.3 % (9.0-44.0); MEAN CELL VOLUME 84.1 FL (80.0-100.0); MEAN CORPUSCULAR HEMOGLOBIN 28.3 PG (27.0-34.0); MEAN CORPUSCULAR HGB CONC 33.7 % (32.0-36.0); MONO % 5.5 % (0.0-8.0); NEUT % 71.8 % (16.0-70.0); PLATELET COUNT 214 TH/MM3 (150-450); RED CELL DISTRIBUTION WIDTH 13.5 % (11.6-17.2); WHITE BLOOD COUNT 9.2 TH/MM3 (4.0-11.0)
[2016-10-08 05:44] LABS: ALT (GPT) 16 U/L (10-53); ANION GAP 8 MEQ/L (5-15); AST (GOT) 9 U/L (15-37); BLOOD UREA NITROGEN 7 MG/DL (7-18); CHLORIDE 99 MEQ/L (98-107); GLOMERULAR FILTRATION RATE 137 ML/MIN (>89); POTASSIUM 3.5 MEQ/L (3.5-5.1); SODIUM (NA) 135 MEQ/L (136-145)
[2016-10-08 05:46] LABS: ALKALINE PHOSPHATASE 71 U/L (45-117); TOTAL BILIRUBIN ADULT 0.4 MG/DL (0.2-1.0)
[2016-10-08] MEDS: INSULIN ASPART SUPPLEMENTAL SCALE SQ SCH ×4 (05:47→20:16)
[2016-10-08] MEDS: oxyCODONE/ACETAMINOPHEN 10 MG/325 MG TAB PO PRN ×2 (06:44→17:55)
[2016-10-08 08:00] VITALS: BP 171/91; PULSE 81; RESP 20; TEMP 98.3; O2SAT 97
[2016-10-08] MEDS: SODIUM CHLOR 0.9% 1000 ML INJ 1,000 ML IV SCH ×3 (09:19→20:14)
[2016-10-08] MEDS: LISINOPRIL 20 MG TAB PO SCH ×2 (09:20→20:17)
[2016-10-08] MEDS: DILTIAZEM-CD 240 MG CAP ER PO SCH (09:20)
[2016-10-08] MEDS: SODIUM CHLORIDE 0.9% FLUSH 10 ML FLUSH IV FLUSH SCH ×2 (09:20→20:19)
[2016-10-08] MEDS: GABAPENTIN 300 MG CAP PO SCH ×3 (09:20→16:49)
[2016-10-08] MEDS: PANTOPRAZOLE SODIUM 40 MG VIAL IV PUSH SCH ×2 (09:20→20:18)
[2016-10-08 11:32] VITALS: BP 171/91; PULSE 81; RESP 20; TEMP 96.3; O2SAT 97
--- NOTE | 2016-10-08 13:01 | GIPROC ---
[facility] [address] [facility]. [facility], [address] EGD PROCEDURE REPORT EXAM DATE: 10/08/2016 PATIENT NAME: Elias Rodney MR #: [id number] BIRTHDATE: 1975 ATTENDING: Sathish Tubbs MD ORDER #: [id number] BINDER LOCKSTITCH: Ayo Rizo and Larisa Payne STATUS: inpatient INDICATIONS: The patient is a 41 yr old female here for an EGD due to epigastric abdominal pain PROCEDURE PERFORMED: EGD w/ biopsy MEDICATIONS: None and Per Anesthesia. TOPICAL ANESTHETIC: CONSENT: The patient understands the risks and benefits of the procedure and understands that these risks include, but are not limited to: sedation, allergic reaction, infection, perforation and/or bleeding. Alternative means of evaluation and treatment include, among others: physical exam, x-rays, and/or surgical intervention. The patient elects to proceed with this endoscopic procedure. medical equipment was checked for proper function. Hand hygiene and appropriate measures for infection prevention was taken. After the risks, benefits and alternatives of the procedure were thoroughly explained, Informed consent was verified, confirmed and timeout was successfully executed by the treatment team. The patient was anesthetized with topical anesthesia and the Pentax EG-[id number] endoscope was introduced through the mouth and advanced to the second portion of the duodenum. Retroflexed views revealed no abnormalities The gastroscope was then slowly withdrawn and removed. STOMACH: There was mild gastritis in the gastric antrum. Multiple biopsies were performed. The endoscopy was otherwise normal. ADVERSE EVENTS: There were no complications. IMPRESSIONS: 1. There was mild gastritis in the gastric antrum; multiple biopsies were performed 2. Normal endoscopy otherwise 3. Retroflexed views revealed no abnormalities RECOMMENDATIONS: 1. Await biopsy results. Biopsy results will not be ready for 7-10 days. If you don't hear from us in two weeks, call our office for biopsy results. 2. Continue PPI 3. Follow-up: GI clinic PRN PATIENT CONDITION: stable DISPOSITION: Inpatient REPEAT EXAM: Sathish Tubbs MD eSigned: Sathish Tubbs MD 10/08/2016 1:01 PM cc:
--- NOTE | 2016-10-08 14:25 | HHI.PR ---
Subjective Remarks Follow-up for abdominal pain. SO bedside. Seen S/P EGD today. Continue complaining of severe epigastric abdominal pain. Reports nausea, no vomiting. Tolerating popsicles. No BM. Objective Vitals Vital Signs Date Time Temp Pulse Resp B/P Pulse Ox O2 Delivery O2 Flow Rate FiO2 10/08/16 13:15 78 16 161/67 98 10/08/16 13:06 78 16 130/74 100 10/08/16 12:56 97.6 83 16 143/68 96 10/08/16 11:32 96.3 81 20 171/91 97 10/08/16 08:00 98.3 81 20 171/91 97 10/08/16 04:00 98.1 79 20 190/93 96 10/08/16 00:00 98.6 79 20 186/108 97 10/07/16 20:00 98.0 83 20 184/102 98 10/07/16 16:54 97.3 82 20 188/99 99 10/07/16 16:00 97.8 76 18 162/83 98 Room Air I/O 10/07/16 10/07/16 10/07/16 10/08/16 10/08/16 10/08/16 07:00 15:00 23:00 07:00 15:00 23:00 Intake Total 1025 ml 1082 ml 200 ml Balance 1025 ml 1082 ml 200 ml Intake Oral 240 ml 180 ml IV Total 785 ml 902 ml Other 200 ml # Voids 2 2 5 # Bowel Movements 0 Result Diagram: 10/08/16 0358 10/08/16 0358 Imaging Last Impressions Abdomen/Pelvis CT 10/07/16 0000 Signed Impressions: Service Date/Time: September 17:59 - CONCLUSION: 1. Inflammatory changes are noted adjacent to the proximal and extending inferiorly in the region the retroperitoneum suggesting acute duodenitis. Clinical correlation is recommended. 2. Mild hepatomegaly. Anthony Fairbanks MD Chest X-Ray 10/06/162210 Signed Impressions: Service Date/Time: Thursday, October 06, 2016 22:23 - CONCLUSION: No acute disease. No free air is noted. Anthony Fairbanks MD Gall Bladder Ultrasound 10/06/16 0000 Signed Impressions: Service Date/Time: Thursday, October 06, 2016 23:48 - CONCLUSION: 1. Liver mildly enlarged to 19 cm. No gallstones or biliary ductal dilatation. No free fluid. Right kidney unremarkable. Kenn Caraballo MD Objective Remarks GENERAL: Well-developed well-nourished obese. In mild distress from pain. SKIN: Warm and dry. No lesions noted. HEENT: Normocephalic. Pupils equal and round. Mucous membranes pink and moist. CARDIOVASCULAR: Regular rate and rhythm. No murmur appreciated. RESPIRATORY: No accessory muscle use. Clear to auscultation. Breath sounds equal bilaterally. GASTROINTESTINAL: Abdomen soft, moderate epigastric TTP, nondistended. Bowel sounds x4. MUSCULOSKELETAL: No obvious deformities. No clubbing or cyanosis. No edema. NEUROLOGICAL: Awake and alert. No focal neurological deficits. Moves upper and lower extremities spontaneously. Normal speech. PSYCHIATRIC: Appropriate mood and affect; insight and judgment normal. A/P Problem List: (1) Pancreatitis ICD Code: K85.90 Status: Acute (2) Abdominal pain ICD Code: R10.9 Status: Acute Assessment and Plan 41-year-old female with a history of hypertension and diabetes who presented with abdominal pain //Pancreatitis/Epigastric pain Reviewed: Doppler ultrasound with mildly enlarged liver, but no gallstones or biliary ductal dilation. WBC 12.7. Tmax 99.0. Lipase 885. Triglycerides 167. Glucose 302. Abdominal CT showed inflammatories changes suggesting acute duodenitis. -IV Protonix. Hold NSAIDs. -Consulted gastroenterology, performed EGD which showed mild gastritis. -IV fluids. Monitor electrolytes. -Pain control with oral and intravenous narcotics as needed. -Follow-up lipase now within normal limits -Clear liquids and ADAT -Continued severe abdominal pain. Continue oral oxycodone as needed and IV Dilaudid for breakthrough. -Add Carafate //Accelerated hypertension. Likely secondary to missing home medications. -Continue home lisinopril and diltiazem. -Holding HCTZ with decreased intake and on IVF. -IV Vasotec and clonidine as needed. -Remains uncontrolled, add Cardura -Monitor and adjust medications as needed. //Marijuana and tobacco abuse. Cessation counseling. //Diabetes mellitus. //Hyperglycemia on admission. Hemoglobin A1c 10 -Insulin sliding scale. -Continue home Invokana and metformin -Consult diabetic education //Prophylaxis. SCDs. Lovenox. Written by Arturo Marcus, acting as scribe for Dr. Currie on 10/08/16 at 14:20. All or portions of this note were transcribed by daria VARGAS. I, Dr. Minerva Currie personally performed the history, physical exam, and medical decision making; and confirmed the accuracy of the information in the transcribed note. Authenticated by Dr. Minerva Currie on 10/08/16 at 14:20. Discharge Planning D/W gastroenterology, cleared from GI perspective for discharge patient is tolerating full liquids. Continue to monitor for further clinical improvement. Problem Qualifiers (1) Pancreatitis: Qualified Code: K85.90 - Acute pancreatitis, unspecified complication status, unspecified pancreatitis type (2) Abdominal pain: Qualified Code: R10.13 - Epigastric pain Arturo Marcus Oct 08, 2016 14:25 Minerva Currie MD Oct 08, 2016 15:29
[2016-10-08] MEDS ORDERED: CARA1TAB6 PO (14:50)
[2016-10-08] MEDS ORDERED: NORC5TAB PO (14:50)
--- NOTE | 2016-10-08 14:51 | HHI.DCPOC ---
Discharge Care Plan Goals to Promote Your Health * To prevent worsening of your condition and complications * To maintain your health at the optimal level Directions to Meet Your Goals Take your medications as prescribed Follow your dietary instruction Follow activity as directed Keep your appointments as scheduled Take your immunizations and boosters as scheduled If your symptoms worsen call your PCP, if no PCP go to Urgent Care Center or Emergency Room Smoking is Dangerous to Your Health. Avoid second hand smoke Call the 24-hour hour crisis hotline for domestic abuse at Minerva Currie MD Oct 08, 2016 14:51
[2016-10-08] MEDS ORDERED: PANT40TA3 PO (14:53)
[2016-10-08 16:00] VITALS: BP 153/82; PULSE 79; RESP 20; TEMP 97.8; O2SAT 95
[2016-10-08] MEDS ORDERED: PROPOFOL 200 MG/20 ML AMP IV ONE (16:02)
[2016-10-08 16:44] LABS: BICARBONATE 31.2 MEQ/L (21.0-32.0); POTASSIUM 3.9 MEQ/L (3.5-5.1)
[2016-10-08] MEDS: SUCRALFATE 1 GM TAB PO SCH ×2 (16:48→20:18)
[2016-10-08] MEDS ORDERED: oxyCODONE/ACETAMINOPHEN 5 MG/325 MG TAB PO PRN (17:15)
[2016-10-08] MEDS: DOXAZOSIN MESYLATE 1 MG TAB PO SCH (20:18)
[2016-10-08] MEDS: PRAVASTATIN SOD 40 MG TAB PO SCH (20:18)
[2016-10-08] MEDS ORDERED: METFORMIN PO SCH (21:00)
[2016-10-08] MEDS ORDERED: CANAGLIFLOZIN PO SCH (21:00)
[2016-10-08 21:43] VITALS: BP 174/76; PULSE 78; RESP 19; TEMP 98.3; O2SAT 97
[2016-10-09 00:35] VITALS: BP 174/76; PULSE 73; RESP 18; TEMP 98.2; O2SAT 95
[2016-10-09] MEDS: oxyCODONE/ACETAMINOPHEN 10 MG/325 MG TAB PO PRN ×3 (01:54→14:51)
[2016-10-09 05:17] VITALS: BP 139/83; PULSE 68; RESP 18; TEMP 98; O2SAT 95
[2016-10-09] MEDS: SUCRALFATE 1 GM TAB PO SCH ×4 (05:58→20:01)
[2016-10-09] MEDS: INSULIN ASPART SUPPLEMENTAL SCALE SQ SCH ×4 (05:59→20:03)
[2016-10-09 08:03] VITALS: BP 174/87; PULSE 76; RESP 19; TEMP 98.4; O2SAT 94
--- NOTE | 2016-10-09 08:25 | HHI.PR ---
Subjective Remarks Feels improved. Says she had pain yesterday with eating. Did not eat breakfast yet. Denies nausea, vomiting, diarrhea, or constipation. No fever or chills. Objective Vitals Vital Signs Date Time Temp Pulse Resp B/P Pulse Ox O2 Delivery O2 Flow Rate FiO2 10/09/16 05:17 98.0 68 18 139/83 95 10/09/16 00:35 98.2 73 18 174/76 95 10/08/16 21:43 98.3 78 19 174/76 97 10/08/16 16:00 97.8 79 20 153/82 95 10/08/16 13:15 78 16 161/67 98 10/08/16 13:06 78 16 130/74 100 10/08/16 12:56 97.6 83 16 143/68 96 10/08/16 11:32 96.3 81 20 171/91 97 I/O 10/08/16 10/08/16 10/08/16 10/09/16 10/09/16 10/09/16 07:00 15:00 23:00 07:00 15:00 23:00 Intake Total 1082 ml 200 ml 1211 ml Balance 1082 ml 200 ml 1211 ml Intake Oral 180 ml 0 ml IV Total 902 ml 1211 ml Other 200 ml # Voids 5 4 1 1 # Bowel Movements 0 0 Result Diagram: 10/08/16 0358 10/08/16 1502 Imaging Last Impressions Abdomen/Pelvis CT 10/07/16 0000 Signed Impressions: Service Date/Time: September 17:59 - CONCLUSION: 1. Inflammatory changes are noted adjacent to the proximal and extending inferiorly in the region the retroperitoneum suggesting acute duodenitis. Clinical correlation is recommended. 2. Mild hepatomegaly. Anthony Fairbanks MD Chest X-Ray 10/06/16 2211 Signed Impressions: Service Date/Time: Thursday, October 06, 2016 22:23 - CONCLUSION: No acute disease. No free air is noted. Anthony Fairbanks MD Gall Bladder Ultrasound 10/06/16 0000 Signed Impressions: Service Date/Time: Thursday, October 06, 2016 23:48 - CONCLUSION: 1. Liver mildly enlarged to 19 cm. No gallstones or biliary ductal dilatation. No free fluid. Right kidney unremarkable. Kenn Caraballo MD Objective Remarks GENERAL: Well-developed well-nourished obese AA female, appears in nad. SKIN: Warm and dry. No lesions noted. HEENT: Normocephalic. Pupils equal and round. Mucous membranes pink and moist. CARDIOVASCULAR: Regular rate and rhythm. No murmur appreciated. RESPIRATORY: No accessory muscle use. Clear to auscultation. Breath sounds equal bilaterally. GASTROINTESTINAL: Abdomen soft, moderate epigastric TTP, nondistended. Bowel sounds x4. MUSCULOSKELETAL: No obvious deformities. No clubbing or cyanosis. No edema. NEUROLOGICAL: Awake and alert. No focal neurological deficits. Moves upper and lower extremities spontaneously. Normal speech. PSYCHIATRIC: Appropriate mood and affect; insight and judgment normal. A/P Problem List: (1) Pancreatitis ICD Code: K85.90 Status: Acute (2) Abdominal pain ICD Code: R10.9 Status: Acute Assessment and Plan 41-year-old female with a history of hypertension and diabetes who presented with abdominal pain Pancreatitis/Epigastric pain Doppler ultrasound with mildly enlarged liver, but no gallstones or biliary ductal dilation. WBC 12.7. Tmax 99.0. Lipase 885. Triglycerides 167. Glucose 302. Abdominal CT showed inflammatories changes suggesting acute duodenitis. -IV Protonix. Hold NSAIDs. -Consulted gastroenterology, performed EGD which showed mild gastritis. -IV fluids. Monitor electrolytes. -Pain control with oral and intravenous narcotics as needed. -Follow-up lipase now within normal limits -Clear liquids and ADAT -Continued severe abdominal pain. Continue oral oxycodone as needed and IV Dilaudid for breakthrough. -Add Carafate Accelerated hypertension. Likely secondary to missing home medications. -Continue home lisinopril and diltiazem. -Holding HCTZ with decreased intake and on IVF. -IV Vasotec and clonidine as needed. -Remains uncontrolled, add Cardura -Monitor and adjust medications as needed. Marijuana and tobacco abuse. Cessation counseling. Diabetes mellitus. Hyperglycemia on admission. Hemoglobin A1c 10 -Insulin sliding scale. -Continue home Invokana and metformin -Consult diabetic education Prophylaxis. SCDs. Lovenox. Discharge Planning D/W gastroenterology, cleared from GI perspective for discharge patient is tolerating full liquids. Improving DC home in stable condition To follow up as OP with PCP and consultants Diet: ADA and HHD Activity ad stefan as tolerated Meds per med reconciliations Problem Qualifiers (1) Pancreatitis: Qualified Code: K85.90 - Acute pancreatitis, unspecified complication status, unspecified pancreatitis type (2) Abdominal pain: Qualified Code: R10.13 - Epigastric pain Minerva Currie MD Oct 09, 2016 08:25
[2016-10-09] MEDS: GABAPENTIN 300 MG CAP PO SCH ×3 (09:00→17:01)
[2016-10-09] MEDS: LISINOPRIL 20 MG TAB PO SCH ×2 (09:00→20:01)
[2016-10-09] MEDS: PANTOPRAZOLE SODIUM 40 MG VIAL IV PUSH SCH ×2 (09:00→21:33)
[2016-10-09] MEDS: DILTIAZEM-CD 240 MG CAP ER PO SCH (09:00)
[2016-10-09] MEDS: SODIUM CHLORIDE 0.9% FLUSH 10 ML FLUSH IV FLUSH SCH ×2 (09:07→20:03)
[2016-10-09 09:23] LABS: HEMATOCRIT 36.2 % (35.0-46.0); MEAN CELL VOLUME 85.6 FL (80.0-100.0); MEAN CORPUSCULAR HEMOGLOBIN 27.7 PG (27.0-34.0); MEAN CORPUSCULAR HGB CONC 32.4 % (32.0-36.0); PLATELET COUNT 190 TH/MM3 (150-450); RED BLOOD COUNT 4.23 MIL/MM3 (4.00-5.30); RED CELL DISTRIBUTION WIDTH 13.3 % (11.6-17.2); REVIEW FLAG FINAL
[2016-10-09 12:25] VITALS: BP 161/84; PULSE 74; RESP 19; TEMP 98.1; O2SAT 98
[2016-10-09] MEDS: MAGNESIUM HYDROXIDE SUSP 30 ML CUP PO PRN (13:08)
[2016-10-09] MEDS: SENNOSIDES 8.6 MG TAB PO PRN (13:08)
[2016-10-09] MEDS: SODIUM CHLOR 0.9% 1000 ML INJ 1,000 ML IV SCH (14:50)
[2016-10-09 16:07] VITALS: BP 158/91; PULSE 78; RESP 18; TEMP 98.7; O2SAT 97
--- NOTE | 2016-10-09 17:45 | HHI.GIFU ---
Subjective Remarks Resting in bed. Continues to have epigastric pain. States that this is a sharp epigastric pain that she has after eating or drinking. No n/v. Diagnosed with DM during this hospitalization. (Brooklyn Vasques) Objective Vitals I&O Vital Signs Date Time Temp Pulse Resp B/P Pulse Ox O2 Delivery O2 Flow Rate FiO2 10/09/16 16:07 98.7 78 18 158/91 97 10/09/16 12:25 98.1 74 19 161/84 98 10/09/16 08:03 98.4 76 19 174/87 94 10/09/16 05:17 98.0 68 18 139/83 95 10/09/16 00:35 98.2 73 18 174/76 95 10/08/16 21:43 98.3 78 19 174/76 97 I/O 10/08/16 10/08/16 10/08/16 10/09/16 10/09/16 10/09/16 07:00 15:00 23:00 07:00 15:00 23:00 Intake Total 1082 ml 200 ml 1211 ml 2383 ml Balance 1082 ml 200 ml 1211 ml 2383 ml Intake Oral 180 ml 0 ml 600 ml IV Total 902 ml 1211 ml 1783 ml Other 200 ml # Voids 5 4 1 1 4 # Bowel Movements 0 0 0 Laboratory Laboratory Tests Test 10/09/16 08:22 White Blood Count 8.0 Red Blood Count 4.23 Hemoglobin 11.7 Hematocrit 36.2 Mean Corpuscular Volume 85.6 Mean Corpuscular Hemoglobin 27.7 Mean Corpuscular Hemoglobin 32.4 Concent Red Cell Distribution Width 13.3 Platelet Count 190 Mean Platelet Volume 9.5 Imaging Last Impressions Abdomen/Pelvis CT 10/07/16 0000 Signed Impressions: Service Date/Time: September 17:59 - CONCLUSION: 1. Inflammatory changes are noted adjacent to the proximal and extending inferiorly in the region the retroperitoneum suggesting acute duodenitis. Clinical correlation is recommended. 2. Mild hepatomegaly. Anthony Fairbanks MD Chest X-Ray 10/06/161 Signed Impressions: Service Date/Time: Thursday, October 06, 2016 22:23 - CONCLUSION: No acute disease. No free air is noted. Anthony Fairbanks MD Gall Bladder Ultrasound 10/06/16 0000 Signed Impressions: Service Date/Time: Thursday, October 06, 2016 23:48 - CONCLUSION: 1. Liver mildly enlarged to 19 cm. No gallstones or biliary ductal dilatation. No free fluid. Right kidney unremarkable. Kenn Caraballo MD Physical Exam HEENT: Normocephalic; atraumatic; no jaundice. CHEST: CTA CARDIAC: RRR ABDOMEN: Soft, nondistended, epigastric tenderness; no hepatosplenomegaly; bowel sounds are present in all four quadrants. EXTREMITIES: No clubbing, cyanosis, or edema. SKIN: Normal; no rash; no jaundice. GASTROINTESTINAL TECHNICIAN: No focal deficits; alert and oriented times three. (Brooklyn Vasques) Assessment and Plan Plan ASSESSMENT - Epigastric pain. Gall Bladder Ultrasound (10/06/16)---> 1. Liver mildly enlarged to 19 cm. No gallstones or biliary ductal dilatation. No free fluid. Right kidney unremarkable. Abdomen/Pelvis CT (10/07/16)----> 1. Inflammatory changes are noted adjacent to the proximal and extending inferiorly in the region the retroperitoneum suggesting acute duodenitis. Clinical correlation is recommended. 2. Mild hepatomegaly. S/P EGD (10/09/16)----> 1. There was mild gastritis in the gastric antrum; multiple biopsies were performed. 2. Normal endoscopy otherwise. 3. Retroflexed views revealed no abnormalities. Pathology pending. Continues to have abdominal pain with any po intake- states she is unable to eat her meals because of this. Of note, she was diagnosed with DM during this hospitalization. ? Gastroparesis. Will ask for GES tomorrow (48hours after propofol). PPI. - Elevated lipase 885 on admission. Normalized the next day. No evidence of pancreatitis on CT imaging. - DM, new diagnosis per primary PLAN - [facility]ANT[facility] - Await pathology - PPI - GES tomorrow (48 hours after propofol) - Supportive care - This pt was examined by myself and Dr Burch and this note is written on his behalf (Brooklyn Vasques) Physician Comments Seen and examined with SCRIPT SUPERVISOR, still with pain. Biopsies-p. GES on tuesday. ( Meri Burch MD) Brooklyn Vasques Oct 09, 2016 17:45 Meri Burch MD Oct 10, 2016 13:23
[2016-10-09 20:00] VITALS: BP 182/84; PULSE 80; RESP 20; TEMP 98.2; O2SAT 95
[2016-10-09] MEDS: DOXAZOSIN MESYLATE 1 MG TAB PO SCH (20:01)
[2016-10-09] MEDS: PRAVASTATIN SOD 40 MG TAB PO SCH (20:01)
[2016-10-10] VITALS: BP 184/84; PULSE 82; RESP 20; TEMP 98.1; O2SAT 93
[2016-10-10] MEDS: oxyCODONE/ACETAMINOPHEN 10 MG/325 MG TAB PO PRN ×4 (02:00→22:08)
[2016-10-10] MEDS: SENNOSIDES 8.6 MG TAB PO PRN (02:01)
[2016-10-10] MEDS: MAGNESIUM HYDROXIDE SUSP 30 ML CUP PO PRN (02:01)
[2016-10-10] MEDS: SODIUM CHLOR 0.9% 1000 ML INJ 1,000 ML IV SCH ×2 (02:03→16:03)
[2016-10-10 04:00] VITALS: BP 131/62; PULSE 76; RESP 20; TEMP 98.3; O2SAT 96
[2016-10-10] MEDS: INSULIN ASPART SUPPLEMENTAL SCALE SQ SCH ×4 (06:18→19:43)
[2016-10-10] MEDS: SUCRALFATE 1 GM TAB PO SCH ×4 (06:18→19:41)
[2016-10-10 08:20] VITALS: BP 183/85; PULSE 88; RESP 18; TEMP 98.5; O2SAT 96
[2016-10-10] MEDS: LISINOPRIL 20 MG TAB PO SCH ×2 (08:50→19:42)
[2016-10-10] MEDS: PANTOPRAZOLE SODIUM 40 MG VIAL IV PUSH SCH ×2 (08:50→19:41)
[2016-10-10] MEDS: DILTIAZEM-CD 240 MG CAP ER PO SCH (08:50)
[2016-10-10] MEDS: GABAPENTIN 300 MG CAP PO SCH ×3 (08:50→16:03)
[2016-10-10] MEDS: SODIUM CHLORIDE 0.9% FLUSH 10 ML FLUSH IV FLUSH SCH ×2 (08:51→19:46)
[2016-10-10 12:14] VITALS: BP 166/88; PULSE 72; RESP 18; TEMP 98.3; O2SAT 93
--- NOTE | 2016-10-10 13:47 | HHI.PR ---
Subjective Remarks No acute events overnight. Afebrile, vital signs stable. Patient hypertensive to 183/85. She continues to complain of epigastric pain and reflux. She is having difficulty tolerating by mouth and requires pain medication in order to drink anything. Objective Vitals Vital Signs Date Time Temp Pulse Resp B/P Pulse Ox O2 Delivery O2 Flow Rate FiO2 10/10/16 12:14 98.3 72 18 166/88 93 10/10/16 08:20 98.5 88 18 183/85 96 10/10/16 04:00 98.3 76 20 131/62 96 10/10/16 00:00 98.1 82 20 184/84 93 10/09/16 20:00 98.2 80 20 182/84 95 10/09/16 16:07 98.7 78 18 158/91 97 I/O 10/09/16 10/09/16 10/09/16 10/10/16 10/10/16 10/10/16 07:00 15:00 23:00 07:00 15:00 23:00 Intake Total 2383 ml 637 ml 1405 ml Balance 2383 ml 637 ml 1405 ml Intake Oral 600 ml 380 ml 800 ml IV Total 1783 ml 257 ml 605 ml # Voids 1 4 2 5 # Bowel Movements 0 0 0 Result Diagram: 10/09/16 0822 10/08/16 1502 Objective Remarks Gen.: No acute distress Head: Normocephalic. Atraumatic. EENT: Pupils equal round and reactive to light. Nose without drainage. Airway intact. Throat without injection. Cardiovascular: Regular rate and rhythm. No murmurs, rubs or gallops. Respiratory: Lungs clear to auscultation bilaterally. No wheezes or rhonchi. Abdomen: Soft, nontender, nondistended. No peritoneal signs. Severe epigastric pain with palpation. Hypoactive bowel sounds. Musculoskeletal: No gross deformities. No edema. Skin: No obvious rashes or erythema. Neuro: Sensory and motor grossly intact. Cranial nerves II through XII grossly intact. Psych: Appropriate mood and affect A/P Problem List: (1) Pancreatitis ICD Code: K85.90 Status: Acute (2) Abdominal pain ICD Code: R10.9 Status: Acute Assessment and Plan 41-year-old female with a history of hypertension and diabetes who presented with abdominal pain Pancreatitis/Epigastric pain Doppler ultrasound with mildly enlarged liver, but no gallstones or biliary ductal dilation. WBC 12.7. Tmax 99.0. Lipase 885. Triglycerides 167. Glucose 302. Abdominal CT showed inflammatories changes suggesting acute duodenitis. -IV Protonix. Hold NSAIDs. -Consulted gastroenterology, performed EGD which showed mild gastritis. -IV fluids. Monitor electrolytes. -Pain control with oral and intravenous narcotics as needed. -Follow-up lipase now within normal limits -Clear liquids and ADAT -Continued severe abdominal pain. Continue oral oxycodone as needed and IV Dilaudid for breakthrough. -Add Carafate -Patient to undergo GES tomorrow Accelerated hypertension. Likely secondary to missing home medications. -Continue home lisinopril and diltiazem. -Holding HCTZ with decreased intake and on IVF. -IV Vasotec and clonidine as needed. -Remains uncontrolled, add Cardura -Monitor and adjust medications as needed. Marijuana and tobacco abuse. Cessation counseling. Diabetes mellitus. Hyperglycemia on admission. Hemoglobin A1c 10 -Insulin sliding scale. -Continue home Invokana and metformin -Consult diabetic education Prophylaxis. SCDs. Lovenox. Discharge Planning To home once cleared from gastroenterology standpoint Problem Qualifiers (1) Pancreatitis: Qualified Code: K85.90 - Acute pancreatitis, unspecified complication status, unspecified pancreatitis type (2) Abdominal pain: Qualified Code: R10.13 - Epigastric pain Lynette Curtis MD R3 Oct 10, 2016 13:47
[2016-10-10 16:01] VITALS: BP 186/97; PULSE 83; RESP 19; TEMP 98.3; O2SAT 95
[2016-10-10] MEDS: cloNIDine HCL 0.1 MG TAB PO PRN (17:05)
[2016-10-10] MEDS: PRAVASTATIN SOD 40 MG TAB PO SCH (19:42)
[2016-10-10] MEDS: DOXAZOSIN MESYLATE 1 MG TAB PO SCH (19:46)
[2016-10-10 20:00] VITALS: BP 161/76; PULSE 79; RESP 20; TEMP 98.3; O2SAT 96
[2016-10-11] VITALS: BP 163/90; PULSE 76; RESP 20; TEMP 98.2; O2SAT 98
[2016-10-11 04:00] VITALS: BP 161/74; PULSE 70; RESP 20; TEMP 97.8; O2SAT 96
[2016-10-11] MEDS: SUCRALFATE 1 GM TAB PO SCH ×4 (06:00→20:34)
[2016-10-11] MEDS: SODIUM CHLOR 0.9% 1000 ML INJ 1,000 ML IV SCH (06:00)
[2016-10-11] MEDS: INSULIN ASPART SUPPLEMENTAL SCALE SQ SCH ×4 (06:01→20:29)
[2016-10-11 08:03] VITALS: BP 153/79; PULSE 74; RESP 18; TEMP 98.4; O2SAT 94
[2016-10-11] MEDS: LISINOPRIL 20 MG TAB PO SCH ×2 (08:48→20:29)
[2016-10-11] MEDS: PANTOPRAZOLE SODIUM 40 MG VIAL IV PUSH SCH ×2 (08:48→20:29)
[2016-10-11] MEDS: DILTIAZEM-CD 240 MG CAP ER PO SCH (08:48)
[2016-10-11] MEDS: GABAPENTIN 300 MG CAP PO SCH ×3 (08:48→18:00)
[2016-10-11] MEDS: SODIUM CHLORIDE 0.9% FLUSH 10 ML FLUSH IV FLUSH SCH ×2 (08:48→20:34)
[2016-10-11] MEDS: METOCLOPRAMIDE HCL 10 MG/2 ML VIAL IV PUSH PRN (11:27)
[2016-10-11 12:03] VITALS: BP 180/86; PULSE 86; RESP 18; TEMP 98.3; O2SAT 96
--- NOTE | 2016-10-11 12:21 | HHI.PR ---
Subjective Remarks f/u for pancreatitis. Patient denied any N/V or pain. He is sitting in chair very comfortably waiting for GES. No complaints. Objective Vitals Vital Signs Date Time Temp Pulse Resp B/P Pulse Ox O2 Delivery O2 Flow Rate FiO2 10/11/16 04:00 97.8 70 20 161/74 96 10/11/16 00:00 98.2 76 20 163/90 98 10/10/16 20:00 98.3 79 20 161/76 96 10/10/16 16:01 98.3 83 19 186/97 95 I/O 10/10/16 10/10/16 10/10/16 10/11/16 10/11/16 10/11/16 07:00 15:00 23:00 07:00 15:00 23:00 Intake Total 1405 ml 1613 ml 323 ml 1046 ml Balance 1405 ml 1613 ml 323 ml 1046 ml Intake Oral 800 ml 720 ml 500 ml IV Total 605 ml 893 ml 323 ml 546 ml # Voids 5 3 5 # Bowel Movements 0 0 0 Result Diagram: 10/09/16 0822 10/08/16 1502 Objective Remarks GENERAL: in NAD CARDIOVASCULAR: Regular rate and rhythm without murmurs, gallops, or rubs. RESPIRATORY: Breath sounds equal bilaterally. No accessory muscle use. GASTROINTESTINAL: Abdomen soft, non-tender, nondistended. MUSCULOSKELETAL: No cyanosis, or edema. BACK: Nontender without obvious deformity. No CVA tenderness. Medications and IVs Current Medications Sodium Chloride (NS Flush) 2 ml UNSCH PRN IV FLUSH FLUSH AFTER USING IV ACCESS ; Start 10/06/16 at 22:15; Stop 10/07/16 at 01:06; Status DC Lisinopril (Prinivil) 20 mg ONCE ONCE PO Last administered on 10/06/16 22:43 ; Start 10/06/16 at 22:15; Stop 10/06/16 at 22:16; Status DC Hydrochlorothiazide (Hydrodiuril) 25 mg ONCE ONCE PO Last administered on 10/06 22:41; Start 10/06/16 at 22:15; Stop 10/06/16 at 22:16; Status DC Ondansetron HCl (Zofran Inj) 4 mg ONCE ONCE IVP Last administered on 22:49; Start 10/06/16 at 22:45; Stop 10/06/16 at 22:46; Status DC Famotidine (Pepcid Inj) 20 mg ONCE ONCE IV PUSH Last administered on 01:18; Start 10/06/16 at 22:45; Stop 10/06/16 at 22:46; Status DC Morphine Sulfate (Morphine Inj) 2.5 mg ONCE ONCE IV PUSH Last administered on 10/06/16 22:49; Start 10/06/16 at 22:45; Stop 10/06/16 at 22:46; Status DC Hydromorphone HCl 0.5 mg 0.5 mg ONCE ONCE IV PUSH ; Start 10/07/16 at 00:45; Stop 10/07/16 at 00:46; Status DC Sodium Chloride (NS 1000 ml Inj) 1,000 ml @ 80 mls/hr [id number] IV Last administered on 10/11/16 06:00; Start 10/07/16 at 01:03 Sodium Chloride (NS Flush) 2 ml UNSCH PRN IV FLUSH FLUSH AFTER USING IV ACCESS ; Start 10/07/16 at 01:15 Sodium Chloride (NS Flush) 2 ml BID IV FLUSH Last administered on 10/10/16 19: 46; Start 10/07/16 at 09:00 Ondansetron HCl (Zofran Inj) 4 mg Q6H PRN IVP NAUSEA OR VOMITING Last administered on 10/07/16 11:39; Start 10/07/16 at 01:15 Metoclopramide HCl (Reglan Inj) 5 mg Q6H PRN IV PUSH NAUSEA OR VOMITING Last administered on 10/11/16 11:27; Start 10/07/16 at 01:15 Prochlorperazine (Compazine Supp) 25 mg Q12H PRN RECTAL NAUSEA OR VOMITING; Start 10/07/16 at 01:15 Bisacodyl (Dulcolax Supp) 10 mg DAILY PRN RECTAL CONSTIPATION Last administered on 10/10/16 19:42; Start 10/07/16 at 01:15 Magnesium Hydroxide (Milk Of Magnesia Liq) 30 ml Q12H PRN PO CONSTIPATION Last administered on 10/10/16 02:01; Start 10/07/16 at 01:15 Sennosides (Senokot) 17.2 mg Q12H PRN PO CONSTIPATION Last administered on 02:01; Start 10/07/16 at 01:15 Enoxaparin Sodium (Lovenox Inj) 40 mg Q24H SQ Last administered on 10/07/16 03 :48; Start 10/07/16 at 02:00; Status Hold Naloxone HCl (Narcan Inj) 0.4 mg UNSCH PRN IV SEE LABEL COMMENTS; Start at 01:15; Stop 10/07/16 at 15:41; Status DC Clonidine (Catapres) 0.1 mg Q6H PRN PO SBP>160, DBP>90 Last administered on 10/10 17:05; Start 10/07/16 at 01:15 Oxycodone/ Acetaminophen (Percocet 5-325 Mg) 1 tab Q6H PRN PO PAIN SCALE 3 TO 5 Last administered on 10/07/16 10:23; Start 10/07/16 at 01:15; Stop 10/08/16 at 14:17; Status DC Oxycodone/ Acetaminophen (Percocet 10-325 Mg) 1 tab Q6H PRN PO PAIN SCALE 6 TO 10 Last administered on 10/10/16 22:08; Start 10/07/16 at 01:15 Hydromorphone HCl (Dilaudid Pf Inj) 1 mg Q3H PRN IV SYMPTOMATIC BRADYCARDIA Last administered on 10/08/16 14:23; Start 10/07/16 at 01:15 Naloxone HCl (Narcan Inj) 0.4 mg UNSCH PRN IV SEE LABEL COMMENTS; Start at 01:15 Diltiazem HCl (Cardizem Cd) 240 mg DAILY PO Last administered on 10/11/16 08:48 ; Start 10/07/16 at 09:00 Lisinopril (Prinivil) 20 mg DAILY PO Last administered on 10/07/16 09:05; Start 10/07/16 at 09:00; Stop 10/07/16 at 15:29; Status DC Pantoprazole Sodium (Protonix Inj) 80 mg ONCE ONCE IV PUSH Last administered on 10/07/16 06:15; Start 10/07/16 at 06:15; Stop 10/07/16 at 06:18; Status DC Pantoprazole Sodium (Protonix Inj) 40 mg Q12H IV PUSH Last administered on 08:48; Start 10/07/16 at 21:00 Insulin Aspart (NovoLOG SUPPLEMENTAL SCALE) 1 ACHS SLIDING SCALE SQ Last administered on 10/07/16 07:22; Start 10/07/16 at 07:00; Stop 10/07/16 at 07:58 ; Status DC Dextrose (D50w (Vial) Inj) 25 ml UNSCH PRN IV PUSH HYPOGLYCEMIA-SEE COMMENTS; Start 10/07/16 at 07:45 Glucagon (Glucagon Inj) 1 mg UNSCH PRN OTHER HYPOGLYCEMIA-SEE COMMENTS; Start 10/07/16 at 07:45 Insulin Aspart (NovoLOG SUPPLEMENTAL SCALE) 1 ACHS SLIDING SCALE SQ Last administered on 10/11/16 06:01; Start 10/07/16 at 11:00 Enalaprilat (Vasotec Inj) 1.25 mg ONCE ONCE IV PUSH Last administered on 10/07 12:24; Start 10/07/16 at 12:30; Stop 10/07/16 at 12:31; Status DC Enalaprilat (Vasotec Inj) 1.25 mg Q6H PRN IV PUSH SBP> OR = 180, DBP> OR = 100 ; Start 10/07/16 at 12:00 Gabapentin (Neurontin) 300 mg TID PO Last administered on 10/11/16 12:01; Start 10/07/16 at 18:00 Pravastatin Sodium (Pravachol) 40 mg HS PO Last administered on 10/10/16 19:42 ; Start 10/07/16 at 21:00 Lisinopril (Prinivil) 20 mg BID PO Last administered on 10/11/16 08:48; Start 10/07/16 at 21:00 Iohexol (Omnipaque 350 Inj) 88 ml STK-MED ONCE IV Last administered on 18:17; Start 10/07/16 at 18:17; Stop 10/07/16 at 18:18; Status DC Doxazosin Mesylate (Cardura) 1 mg HS PO Last administered on 10/10/16 19:46; Start 10/08/16 at 21:00 Patient Own Medication PT OWN MED: INVOKA... BID PO ; Start 10/08/16 at 21:00; Status Hold Oxycodone/ Acetaminophen (Percocet 5-325 Mg) 1 tab Q4H PRN PO PAIN SCALE 3 TO 5 Last administered on 10/09/16 21:31; Start 10/08/16 at 17:15 Sucralfate (Carafate) 1 gm ACHS PO Last administered on 10/11/16 12:01; Start 10/08/16 at 16:00 Propofol (Diprivan 200 Mg/20 ml Inj) 110 mg STK-MED ONCE IV ; Start 10/08/16 at 16:02; Stop 10/08/16 at 16:03; Status DC Fentanyl Citrate (fentaNYL INJ) 100 mcg STK-MED ONCE IV ; Start 10/08/16 at 12: 00; Stop 10/11/16 at 09:17; Status DC A/P Problem List: (1) Pancreatitis ICD Code: K85.90 Status: Acute (2) Abdominal pain ICD Code: R10.9 Status: Acute Assessment and Plan 41-year-old female with a history of hypertension and diabetes who presented with abdominal pain Pancreatitis/Epigastric pain Doppler ultrasound with mildly enlarged liver, but no gallstones or biliary ductal dilation. WBC 12.7. Tmax 99.0. Lipase 885. Triglycerides 167. Glucose 302. Abdominal CT showed inflammatories changes suggesting acute duodenitis. -IV Protonix. Hold NSAIDs. -Consulted gastroenterology, performed EGD which showed mild gastritis. -IV fluids. Monitor electrolytes. -Pain control with oral and intravenous narcotics as needed. Patient too comfortable and lipase is negative now. d/c IV narcotics. -Follow-up lipase now within normal limits -Clear liquids and ADAT -oxycodone PRN. -on Carafate -Patient to undergo GES today. Accelerated hypertension. Likely secondary to missing home medications. -Continue home lisinopril and diltiazem. -restart HCTZ since HTN uncontrolled. -IV Vasotec and clonidine as needed. -on Cardura -Monitor and adjust medications as needed. Marijuana and tobacco abuse. Cessation counseling. Diabetes mellitus. Hyperglycemia on admission. Hemoglobin A1c 10 -Insulin sliding scale. -Continue home Invokana and metformin -Consult diabetic education Prophylaxis. SCDs. Lovenox. Discharge Planning patient scheduled GES today. Once cleared by GI patient can be d/c to home. Problem Qualifiers (1) Pancreatitis: Qualified Code: K85.90 - Acute pancreatitis, unspecified complication status, unspecified pancreatitis type (2) Abdominal pain: Qualified Code: R10.13 - Epigastric pain Tigist Chavarria MD Oct 11, 2016 12:21
[2016-10-11] MEDS: cloNIDine HCL 0.1 MG TAB PO PRN ×2 (12:24→18:58)
[2016-10-11] MEDS: oxyCODONE/ACETAMINOPHEN 10 MG/325 MG TAB PO PRN ×2 (12:24→18:59)
[2016-10-11] MEDS ORDERED: OXYC1TAB63 PO (12:24)
[2016-10-11] MEDS ORDERED: CARD1TAB PO (12:24)
--- NOTE | 2016-10-11 14:58 | RADRPT ---
EXAM DATE/TIME: 10/11/2016 09:30 [facility] COMPARISON: No previous studies available for comparison. INDICATIONS : Epigastic pain. DOSE: 1 mCi Tc99m Sulfur Colloid Labeled Whole egg PO MEDICATONS: 1.) 5 mg Reglan IV at 90 minutes IMAGIN hrs MEDICAL HISTORY : Diabetes mellitus type 2. Hypertension. Hypercholesterolemia. SURGICAL HISTORY : section. ENCOUNTER: Initial ACUITY: 3 days PAIN SCALE: 3/10 LOCATION: Left Abdomen. TECHNIQUE: Following the oral ingestion of radiotracer-labeled meal, dynamic sequential images in the [place]OH[place] projec tion were acquired with simultaneous computer acquisition. The data set was decay-corrected. FINDINGS: LAG PHASE: There is a 30 minutes before onset of gastric emptying. EMPTYING: Gastric emptying kinetics are linear. The decay-corrected, back-extrapolated half-time of emptying i s 107 minutes. (Normal for this lab is 45- 90 minutes.) INTERVENTION: There is significant acceleration of gastric emptying with Reglan administration. CONCLUSION: 1. Gastric emptying half-time of 107 minutes is abnormal. Normal = 45-90 minutes. Exam would suggest gastroparesis. 2. There is good response to Reglan administration. Jordan Snyder MD on October 11, 2016 at 14:54 Board Certified Radiologist. This report was verified electronically.
--- NOTE | 2016-10-11 15:24 | HHI.GIFU ---
Subjective Remarks Resting in bed. States she had abdominal pain earlier today, but none since. Has not had diet yet today because she was NPO for GES. (Brooklyn Vasques) Objective Vitals I&O Vital Signs Date Time Temp Pulse Resp B/P Pulse Ox O2 Delivery O2 Flow Rate FiO2 10/11/16 12:03 98.3 86 18 180/86 96 10/11/16 08:03 98.4 74 18 153/79 94 10/11/16 04:00 97.8 70 20 161/74 96 10/11/16 00:00 98.2 76 20 163/90 98 10/10/16 20:00 98.3 79 20 161/76 96 10/10/16 16:01 98.3 83 19 186/97 95 I/O 10/10/16 10/10/16 10/10/16 10/11/16 10/11/16 10/11/16 07:00 15:00 23:00 07:00 15:00 23:00 Intake Total 1405 ml 1613 ml 323 ml 1046 ml Balance 1405 ml 1613 ml 323 ml 1046 ml Intake Oral 800 ml 720 ml 500 ml IV Total 605 ml 893 ml 323 ml 546 ml # Voids 5 3 5 # Bowel Movements 0 0 0 Imaging Last Impressions Gastric Emptying Nuclear Medicine 10/11/16 0600 Signed Impressions: Service Date/Time: Tuesday, October 11, 2016 09:30 - CONCLUSION: 1. Gastric emptying half-time of 107 minutes is abnormal. Normal = 45-90 minutes. Exam would suggest gastroparesis. 2. There is good response to Reglan administration. Jordan Snyder MD Abdomen/Pelvis CT 10/07/16 0000 Signed Impressions: Service Date/Time: September 17:59 - CONCLUSION: 1. Inflammatory changes are noted adjacent to the proximal and extending inferiorly in the region the retroperitoneum suggesting acute duodenitis. Clinical correlation is recommended. 2. Mild hepatomegaly. Anthony Fairbanks MD Chest X-Ray 10/06/161 Signed Impressions: Service Date/Time: Thursday, October 06, 2016 22:23 - CONCLUSION: No acute disease. No free air is noted. Anthony Fairbanks MD Gall Bladder Ultrasound 10/06/16 0000 Signed Impressions: Service Date/Time: Thursday, October 06, 2016 23:48 - CONCLUSION: 1. Liver mildly enlarged to 19 cm. No gallstones or biliary ductal dilatation. No free fluid. Right kidney unremarkable. Kenn Caraballo MD Physical Exam HEENT: Normocephalic; atraumatic; no jaundice. CHEST: CTA CARDIAC: RRR ABDOMEN: Soft, nondistended, mild epigastric tenderness; no hepatosplenomegaly ; bowel sounds are present in all four quadrants. EXTREMITIES: No clubbing, cyanosis, or edema. SKIN: Normal; no rash; no jaundice. TOOL AND DIE SUPERVISOR: No focal deficits; alert and oriented times three. ([place]) Assessment and Plan Plan ASSESSMENT - Epigastric pain. Gall Bladder Ultrasound (10/06/16)---> 1. Liver mildly enlarged to 19 cm. No gallstones or biliary ductal dilatation. No free fluid. Right kidney unremarkable. Abdomen/Pelvis CT (10/07/16)----> 1. Inflammatory changes are noted adjacent to the proximal and extending inferiorly in the region the retroperitoneum suggesting acute duodenitis. Clinical correlation is recommended. 2. Mild hepatomegaly. S/P EGD (10/09/16)----> 1. There was mild gastritis in the gastric antrum; multiple biopsies were performed. 2. Normal endoscopy otherwise. 3. Retroflexed views revealed no abnormalities. Pathology antral mucosa with mild active chronic gastritis, a mario stain is negative for helicobacter . (GES)-----> 1. Gastric emptying half- time of 107 minutes is abnormal. Normal = 45-90 minutes. Exam would suggest gastroparesis. 2. There is good response to Reglan administration. Likely this is the etiology of her discomfort. D/W patient importance of gastroparesis diet. Will give trial of bethanechol. IMPROVED. - Gastroparesis. D/W gastroparesis diet, trial of bethanechol - Gastritis. Path benign. PPI - Elevated lipase 885 on admission. Normalized the next day. No evidence of pancreatitis on CT imaging. - DM, new diagnosis per primary PLAN - Soft diet - PPI - Trial of bethanechol - D/W patient gastroparesis diet- soft diet, small frequent meals, chewing food well, small bites. Verbalizes understanding - Okay to d/c home from GI standpoint - This pt was examined by myself and Dr Burch and this note is written on his behalf (Brooklyn Vasques) Physician Comments Seen and examined with JUAN RAMON, Gastroparesis on GES. trial of bethanecol. Gi fu upon dc, will sign off. Thank you (Meri Burch MD) [place] Vasques Oct 11, 2016 15:24 Meri Burch MD Oct 11, 2016 17:52
[2016-10-11 16:00] VITALS: BP 181/88; PULSE 77; RESP 18; TEMP 98.2; O2SAT 95
[2016-10-11 20:00] VITALS: BP 168/102; PULSE 76; RESP 18; TEMP 98.2; O2SAT 97
[2016-10-11] MEDS: BETHANECHOL CHL 10 MG TAB PO SCH (20:30)
[2016-10-11] MEDS: PRAVASTATIN SOD 40 MG TAB PO SCH (20:31)
[2016-10-11] MEDS: SENNOSIDES 8.6 MG TAB PO PRN (20:34)
[2016-10-11] MEDS: DOXAZOSIN MESYLATE 1 MG TAB PO SCH (20:34)
[2016-10-12] VITALS: BP 156/70; PULSE 76; RESP 18; TEMP 98.3; O2SAT 95
[2016-10-12 04:00] VITALS: BP 155/70; PULSE 78; RESP 18; TEMP 98.5; O2SAT 97
[2016-10-12] MEDS: SUCRALFATE 1 GM TAB PO SCH ×2 (05:55→12:25)
[2016-10-12] MEDS: BETHANECHOL CHL 10 MG TAB PO SCH ×2 (05:55→12:25)
[2016-10-12] MEDS: SODIUM CHLOR 0.9% 1000 ML INJ 1,000 ML IV SCH (05:56)
[2016-10-12] MEDS: INSULIN ASPART SUPPLEMENTAL SCALE SQ SCH ×2 (05:56→11:00)
[2016-10-12 08:00] VITALS: BP 122/89; PULSE 73; RESP 18; TEMP 98.1; O2SAT 98
[2016-10-12] MEDS: SODIUM CHLORIDE 0.9% FLUSH 10 ML FLUSH IV FLUSH SCH (09:00)
[2016-10-12] MEDS ORDERED: HYDROCHLOROTHIAZIDE 25 MG TAB PO SCH (09:00)
[2016-10-12] MEDS: LISINOPRIL 20 MG TAB PO SCH (09:17)
[2016-10-12] MEDS: GABAPENTIN 300 MG CAP PO SCH ×2 (09:17→12:28)
[2016-10-12] MEDS: PANTOPRAZOLE SODIUM 40 MG VIAL IV PUSH SCH (09:17)
[2016-10-12] MEDS: DILTIAZEM-CD 240 MG CAP ER PO SCH (09:17)
[2016-10-12 12:00] VITALS: BP 178/88; PULSE 83; RESP 18; TEMP 98.2; O2SAT 98
[2016-10-12] MEDS: cloNIDine HCL 0.1 MG TAB PO PRN (12:25)
[2016-10-12 13:34] VITALS: BP 145/67
[2016-10-12] MEDS ORDERED: LISI-515 PO (13:58)
[2016-10-12] MEDS ORDERED: BETH10 PO (13:58)
--- NOTE | 2016-10-12 16:19 | HHI.DS ---
Discharge Summary Admission Date Oct 07, 2016 at 1:00 am Discharge Date: Oct 12, 2016 Admitting Diagnosis Acute Pancreatitis (1) Pancreatitis ICD Code: K85.90 (2) Abdominal pain ICD Code: R10.9 (3) Gastroparesis due to DM ICD Code: E11.43 Diagnosis: Principal Procedures 10/08/2016 IMPRESSIONS: 1. There was mild gastritis in the gastric antrum; multiple biopsies were performed 2. Normal endoscopy otherwise 3. Retroflexed views revealed no abnormalities RECOMMENDATIONS: 1. Await biopsy results. Biopsy results will not be ready for 7-10 days. If you don't hear from us in two weeks, call our office for biopsy results. 2. Continue PPI 3. Follow-up: GI clinic PRN Brief History - From Admission 41-year-old female with a history of hypertension who presents with a one-week history of sharp, nonradiating, burning epigastric pain, worse with eating or drinking. Accompanied by generalized fatigue over the past week. Denies any chest pain, shortness of breath, nausea, vomiting, diarrhea, constipation. She does take naproxen on a regular basis for back pain. CBC/BMP: 10/09/16 0822 10/08/16 1502 Imaging Last Impressions Gastric Emptying Nuclear Medicine 10/11/16 0600 Signed Impressions: Service Date/Time: Tuesday, October 11, 2016 09:30 - CONCLUSION: 1. Gastric emptying half-time of 107 minutes is abnormal. Normal = 45-90 minutes. Exam would suggest gastroparesis. 2. There is good response to Reglan administration. Jordan Snyder MD Abdomen/Pelvis CT 10/07/16 0000 Signed Impressions: Service Date/Time: September 17:59 - CONCLUSION: 1. Inflammatory changes are noted adjacent to the proximal and extending inferiorly in the region the retroperitoneum suggesting acute duodenitis. Clinical correlation is recommended. 2. Mild hepatomegaly. Anthony Fairbanks MD Chest X-Ray 10/06/16 2211 Signed Impressions: Service Date/Time: Thursday, October 06, 2016 22:23 - CONCLUSION: No acute disease. No free air is noted. Anthony Fairbanks MD Gall Bladder Ultrasound 10/06/16 0000 Signed Impressions: Service Date/Time: Thursday, October 06, 2016 23:48 - CONCLUSION: 1. Liver mildly enlarged to 19 cm. No gallstones or biliary ductal dilatation. No free fluid. Right kidney unremarkable. Kenn Caraballo MD PE at Discharge GENERAL: in NAD CARDIOVASCULAR: Regular rate and rhythm without murmurs, gallops, or rubs. RESPIRATORY: Breath sounds equal bilaterally. No accessory muscle use. GASTROINTESTINAL: Abdomen soft, non-tender, nondistended. MUSCULOSKELETAL: No cyanosis, or edema. BACK: Nontender without obvious deformity. No CVA tenderness. Pt update on day of discharge Ms. Rodney is doing well. No acute concerns. Wants to go home. Hospital Course Ms. Rodney is a 41-year-old female with a history of hypertension , diabetes mellitus who presented to the emergency department on 10/07/2016 with 1 week history of sharp, nonradiating, burning epigastric pain worsening with eating and drinking. On arrival patient's lipase was 885, hemoglobin A1c of 10.0. CT abdomen and pelvis suggested acute duodenitis. GI was consulted. Patient underwent gastric emptying study which showed gastric emptying half- time of 107 minutes - normal is 45-90 minutes. GI recommended bethanechol for gastroparesis. Patient was extensively counseled on lifestyle modification including low salt cardiac and diabetic diet, walking and exercising in general. Patient was subsequently discharged home and follow-up with primary care physician. Pt Condition on Discharge: Stable Discharge Disposition: Discharge Home Discharge Time: > 30 minutes Discharge Instructions DIET: Follow Instructions for: Heart Healthy Diet, Diabetic Diet Activities you can perform: Regular-No Restrictions Follow up Referrals: Gastroenterology - 2 Weeks PCP Follow-up - 3-5 Days New Medications: Pantoprazole (Pantoprazole) 40 Mg Tab 40 MG PO DAILY Reflux #30 Ref 0 TAB Bethanechol (Urecholine) 10 Mg Tab 10 MG PO Q8HR Gastroparesis #90 TAB Doxazosin (Cardura) 1 Mg Tab 1 MG PO HS hypertension #30 Ref 0 TAB Lisinopril (Lisinopril) 20 Mg Tab 20 MG PO BID Blood Pressure Management #60 TAB Oxycodone-Acetaminophen (Oxycodone-Acetaminophen) 5-325 mg Tab 1 TAB PO Q4H PRN pain 5-10 #10 Ref 0 TAB Sucralfate (Carafate) 1 Gm Tab 1 GM PO ACHS gastritis #30 TAB Continued Medications: Canagliflozin-Metformin (Invokamet) 150-500 Mg Tab 1 TAB PO BID Take with meals. Avoid ethanol. Blood Sugar Management #60 Ref 0 TAB Diltiazem ER 24 HR (Cartia Xt) 240 Mg Caper 240 MG PO DAILY #30 Ref 0 CAP Gabapentin (Gabapentin) 300 Mg Cap 300 MG PO TID #90 Ref 0 CAP Hydrochlorothiazide (Hydrochlorothiazide) 25 Mg Tab 25 MG PO DAILY #30 Ref 0 TAB Simvastatin (Zocor) 20 Mg Tab 20 MG PO HS Cholesterol Management #30 Ref 0 TAB Discontinued Medications: Naproxen (Naprosyn) 500 Mg Tab 500 MG PO Q12HR PRN PAIN #60 Ref 0 TAB Philip Sandoval DO Oct 12, 2016 4:18 pm
== END 2016-10-12 15:50 | disposition home or self-care (01) | DRG 440 ==
LOC: NEPC 21:49 → NEDA 10-07 01:00 → OBSVTOIN 10-07 01:00 → NEDH 10-07 06:50 → N04A 10-07 16:55
PROVIDERS: ADMIT Hospitalist; ATTEND Hospitalist
PROC: 0DB68ZX Excision of Stomach, Via Natural or Artificial Opening Endoscopic, Diagnostic (ICD-10-PCS; principal; 2016-10-08 12:35)
DX: K85.90 Acute pancreatitis without necrosis or infection, unspecified (principal); E11.43 Type 2 diabetes mellitus with diabetic autonomic (poly)neuropathy; K31.84 Gastroparesis; E11.65 Type 2 diabetes mellitus with hyperglycemia; Z79.84 Long term (current) use of oral hypoglycemic drugs; I10 Essential (primary) hypertension; K29.70 Gastritis, unspecified, without bleeding; M54.5 Low back pain; Z79.1 Long term (current) use of non-steroidal anti-inflammatories (NSAID); F17.210 Nicotine dependence, cigarettes, uncomplicated; F12.90 Cannabis use, unspecified, uncomplicated
CPT/HCPCS: 71010; 74177; 76705; 76937; 78264; 80048; 80053; 82948; 83036; 83690; 84478; 84702; 84703; 85025; 85027; 88305; 88312; 93005; 96374; 96375; A9541; C9113; J1170; J1650; J1815; J2270; J2405; J2765; J3010; J7030; Q9967

== ENCOUNTER 2017-09-17 21:43 | Observation (INO) | payer MEDICAID ==
[~2017-09-17] VITALS: Ht 175.3 cm; Wt 115.0 kg
[~2017-09-17 21:43] MED LIST changes: +BETH10 PO; +CANA1TAB3 PO; +CARA1TAB6 PO; +CARD1TAB PO; +CART240C PO; -CART240C4 PO; +GABA300C5 PO; -HYDR-2768 PO; +HYDR25TA5 PO; -LISI-363 PO; +LISI-515 PO; -METH750T2 PO; -NAPR-576 PO; -NAPR250T57 PO; +OXYC1TAB63 PO; +PANT40TA3 PO; -ULTR50TA PO; +ZOCO20TA PO
[2017-09-17 21:45] VITALS: BP 212/100; PULSE 88; RESP 20; TEMP 99.8; O2SAT 100
[2017-09-17] MEDS ORDERED: CARV25TA (21:59)
[2017-09-17] MEDS ORDERED: ATOR40TA16 PO (21:59)
[2017-09-17] MEDS ORDERED: METF500T PO (21:59)
[2017-09-17] MEDS ORDERED: NOVOLOGP2 SQ (21:59)
[2017-09-17] MEDS ORDERED: CYCL10TA PO (21:59)
[2017-09-17] MEDS ORDERED: ASPI-516 CHEW (21:59)
[2017-09-17] MEDS ORDERED: SACU1TAB7 PO (21:59)
[2017-09-17] MEDS ORDERED: LANTUS2P SQ ×2 (21:59)
--- NOTE | 2017-09-17 22:14 | PD ---
HPI Chief Complaint: Chest Pain Time Seen by Provider: 22:09 Travel History International Travel<30 days: No Contact w/Intl Traveler<30days: No Traveled to known affect area: No History of Present Illness HPI 42-year-old female patient presents to the ER today, has previous history of hypertension, high cholesterol, CHF, here because of 2 days of substernal and right-sided chest pains with no radiation. She states is currently a 7 out of 10. She has not had some shortness of breath as well. She denies any obvious exacerbating alleviating factors. Modifying Factors: None Associated Signs & Symptoms: Chest pain Risk Factors: Hypertension, high cholesterol, CHF PFSH Past Medical History Blood Disorders: No Cancer: No Cardiovascular Problems: Yes High Cholesterol: Yes Cerebrovascular Accident: No Diabetes: Yes Patient Takes Glucophage: Yes Diminished Hearing: No Endocrine: Yes Genitourinary: No Hypertension: Yes Musculoskeletal: Yes (LOW BACK PAIN) Neurologic: Yes Psychiatric: No Reproductive: No Respiratory: No Migraines: Yes Myocardial Infarction: No Renal Failure: No Sickle Cell Disease: No Ulcer: No Tetanus Vaccination: Unknown Influenza Vaccination: No ?: Not LMP: 09/05/17 : 2 Para: 2 Miscarriage: 0 : 0 Past Surgical History Abdominal Surgery: No Cardiac Surgery: No Section: Yes (X 2) Ear Surgery: No Endocrine Surgery: No Eye Surgery: No Genitourinary Surgery: Yes Gynecologic Surgery: Yes ( x2) Oral Surgery: No Thoracic Surgery: No Other Surgery: Yes Social History Alcohol Use: Yes (SOCIAL) Tobacco Use: Yes (1PP WEEK) Substance Use: Yes (pot - occassionaly) Allergies-Medications (Allergen,Severity, Reaction): Coded Allergies: No Known Allergies (Verified Adverse Reaction, Unknown, 09/17/17) Reported Meds & Prescriptions Reported Meds & Active Scripts Active Urecholine (Bethanechol Chloride) 10 Mg Tab 10 Mg PO Q8HR Pantoprazole (Pantoprazole Sodium) 40 Mg Tab 40 Mg PO DAILY Carafate (Sucralfate) 1 Gm Tab 1 Gm PO ACHS Reported Lantus Inj (Insulin Glargine) 1,000 Unit/10 Ml Vial 10 Units SQ HS Lantus Inj (Insulin Glargine) 1,000 Unit/10 Ml Vial 25 Units SQ AC BREAKFAST Novolog Inj (Insulin Aspart) 1,000 Unit/10 Ml Vial 3 Units SQ TID Aspirin 81 Mg Chew 81 Mg CHEW DAILY Atorvastatin (Atorvastatin Calcium) 40 Mg Tab 40 Mg PO HS Flexeril (Cyclobenzaprine HCl) 10 Mg Tab 10 Mg PO TID Entresto (Sacubitril-Valsartan) 49-51 Mg Tab 1 Tab PO DAILY Carvedilol 25 Mg Tab 25 Mg BID Metformin (Metformin HCl) 500 Mg Tab 500 Mg PO BIDPC Gabapentin 300 Mg Cap 300 Mg PO TID Hydrochlorothiazide 25 Mg Tab 25 Mg PO DAILY Review of Systems Except as stated in HPI: all other systems reviewed are Neg Physical Exam Narrative GENERAL: Well-developed middle-aged -Russian female patient currently in mild distress. Awake and oriented 3. SKIN: Focused skin assessment warm/dry. HEAD: Atraumatic. Normocephalic. EYES: Pupils equal and round. No scleral icterus. No injection or drainage. ENT: No nasal bleeding or discharge. Mucous membranes pink and moist. NECK: Trachea midline. No JVD. Supple. CARDIOVASCULAR: Regular rate and rhythm. No murmur appreciated. Pulses are present and equal bilaterally. RESPIRATORY: No accessory muscle use. Clear to auscultation. Breath sounds equal bilaterally. GASTROINTESTINAL: Abdomen soft, non-tender, nondistended. Hepatic and splenic margins not palpable. MUSCULOSKELETAL: No obvious deformities. No clubbing. No cyanosis. No edema. NEUROLOGICAL: Awake and alert. No obvious cranial nerve deficits. Motor grossly within normal limits. Normal speech. PSYCHIATRIC: Appropriate mood and affect; insight and judgment normal. Data Data Last Documented VS Vital Signs Date Time Temp Pulse Resp B/P (MAP) Pulse Ox O2 Delivery O2 Flow Rate FiO2 09/17/17 22:28 83 20 143/81 (101) 98 Room Air 09/17/17 21:45 99.8 Orders Orders Electrocardiogram (09/17/17 22:09) Ckmb (Isoenzyme) Profile (09/17/17 22:09) Complete Blood Count With Diff (09/17/17 22:09) Comprehensive Metabolic Panel (09/17/17 22:09) Magnesium (Mg) (09/17/17 22:09) Prothrombin Time / Inr (Pt) (09/17/17 22:09) Act Partial Throm Time (Ptt) (09/17/17 22:09) Troponin I (09/17/17 22:09) Lipase (09/17/17 22:09) Ecg Monitoring (09/17/17:) Bilateral Bp Monitoring (09/17/17:) Iv Access Insert/Monitor (09/17/17:) Oximetry (09/17/17:) Oxygen Administration (09/17/17:) Aspirin (Aspirin) (09/17/17 22:15) Nitroglycerin 2% Oint (Nitroglycerin 2% (09/17/17:15) Sodium Chloride 0.9% Flush (Ns Flush) (09/17/17 22:15) Chest, Pa & Lat (09/17/17:) Admit Order (Ed Use Only) (09/18/17 00:14) Activity Bed Rest With Brp (09/18/17 00:14) Vital Signs (Adult) Q4H (09/18/17 00:14) Cardiac Rhythm .As Directed (09/18/17 00:14) Notify Dr: Other .PRN (09/18/17 00:14) Notify DrMabel Parameters (09/18/17 00:14) Resp Oxygen Nasal Cannula (09/18/17 ) Ckmb (Isoenzyme) Profile (09/18/17 00:14) Ckmb (Isoenzyme) Profile (09/18/17 03:14) Troponin I (09/18/17 00:14) Troponin I (09/18/17 03:14) Electrocardiogram (09/18/17 00:14) Electrocardiogram (09/18/17 03:14) ^ Obtain (09/18/17 00:14) Sodium Chloride 0.9% Flush (Ns Flush) (09/18/17 00:15) Sodium Chloride 0.9% Flush (Ns Flush) (09/18/17 09:00) Director Of Enterprise Architecture / Telemetry TOREY.Q8H (09/18/17 00:14) Labs Laboratory Tests Test 09/17/17 22:10 White Blood Count 8.9 TH/MM3 Red Blood Count 4.70 MIL/MM3 Hemoglobin 13.2 GM/DL Hematocrit 39.7 % Mean Corpuscular Volume 84.5 FL Mean Corpuscular Hemoglobin 28.0 PG Mean Corpuscular Hemoglobin Concent 33.1 % Red Cell Distribution Width 13.2 % Platelet Count 252 TH/MM3 Mean Platelet Volume 9.5 FL Neutrophils (%) (Auto) 70.9 % Lymphocytes (%) (Auto) 20.0 % Monocytes (%) (Auto) 7.2 % Eosinophils (%) (Auto) 1.5 % Basophils (%) (Auto) 0.4 % Neutrophils # (Auto) 6.3 TH/MM3 Lymphocytes # (Auto) 1.8 TH/MM3 Monocytes # (Auto) 0.6 TH/MM3 Eosinophils # (Auto) 0.1 TH/MM3 Basophils # (Auto) 0.0 TH/MM3 CBC Comment DIFF FINAL Differential Comment Prothrombin Time 10.2 SEC Prothromb Time International Ratio 1.0 RATIO Activated Partial Thromboplast Time 27.5 SEC Blood Urea Nitrogen 13 MG/DL Creatinine 0.90 MG/DL Random Glucose 251 MG/DL Total Protein 7.1 GM/DL Albumin 3.1 GM/DL Calcium Level 9.0 MG/DL Magnesium Level 1.4 MG/DL Alkaline Phosphatase 76 U/L Aspartate Amino Transf (AST/SGOT) 10 U/L Alanine Aminotransferase (ALT/SGPT) 17 U/L Total Bilirubin 0.3 MG/DL Sodium Level 135 MEQ/L Potassium Level 3.8 MEQ/L Chloride Level 98 MEQ/L Carbon Dioxide Level 27.5 MEQ/L Anion Gap 10 MEQ/L Estimat Glomerular Filtration Rate 84 ML/MIN Total Creatine Kinase 48 U/L Troponin I LESS THAN 0.02 NG/ML Lipase 77 U/L MDM Medical Decision Making Medical Screen Exam Complete: Yes Emergency Medical Condition: Yes Medical Record Reviewed: Yes Interpretation(s) EKG shows normal sinus rhythm at a rate of 84 bpm with no signs of acute ST elevations or depressions. Laboratory Tests Test 09/17/17 22:10 Neutrophils (%) (Auto) 70.9 % (16.0-70.0) Random Glucose 251 MG/DL (74-106) Albumin 3.1 GM/DL (3.4-5.0) Magnesium Level 1.4 MG/DL (1.5-2.5) Aspartate Amino Transf (AST/SGOT) 10 U/L (15-37) Sodium Level 135 MEQ/L (136-145) Estimat Glomerular Filtration Rate 84 ML/MIN (>89) Troponin I LESS THAN 0.02 NG/ML Last 24 hours Impressions Chest X-Ray 09/17/17 1011 Signed Impressions: Service Date/Time: Sunday, September 17, 2017 22:19 - CONCLUSION: No acute disease. Kenn Caraballo MD Differential Diagnosis Chest pains: ACS versus CHF exacerbation versus hypertensive urgency Narrative Course Cardiac enzymes are negative. EKG did not show any signs of acute changes. Chest x-ray was fairly unremarkable. Patient's blood pressure was fairly elevated initially but came down on its own. She was given aspirin and nitroglycerin in the ER. At this point, my plan would be to admit her for further evaluation of the chest pain. Diagnosis Primary Impression: Chest pain Admitting Information Admitting Physician Requests: Admit Matt Peraza MD Sep 17, 2017 22:14
[2017-09-17] MEDS ORDERED: SODIUM CHLORIDE 0.9% FLUSH 10 ML FLUSH IVF PRN (22:15)
[2017-09-17] MEDS ORDERED: NITROGLYCERIN 2% OINT 1 GM PACKET TOP ONE (22:15)
[2017-09-17] MEDS ORDERED: ASPIRIN 325 MG TAB PO ONE (22:15)
[2017-09-17 22:26] VITALS: BP 140/78; PULSE 84; RESP 20; O2SAT 98
[2017-09-17 22:27] VITALS: RESP 20; O2SAT 98
[2017-09-17 22:28] VITALS: BP 143/81; PULSE 83; RESP 20; O2SAT 98
[2017-09-17 22:41] LABS: AUTOMATED NEUTROPHIL # 6.3 TH/MM3 (1.8-7.7); BASOPHIL % 0.4 % (0.0-2.0); EOSINOPHIL # 0.1 TH/MM3 (0-0.4); EOSINOPHIL % 1.5 % (0.0-4.0); HEMATOCRIT 39.7 % (35.0-46.0); HEMOGLOBIN 13.2 GM/DL (11.6-15.3); LYMPHOCYTE # 1.8 TH/MM3 (1.0-4.8); MEAN CELL VOLUME 84.5 FL (80.0-100.0); MEAN CORPUSCULAR HGB CONC 33.1 % (32.0-36.0); MEAN PLATELET VOLUME 9.5 FL (7.0-11.0); MONO % 7.2 % (0.0-8.0); MONOCYTE # 0.6 TH/MM3 (0-0.9); NEUT % 70.9 % (16.0-70.0); PLATELET COUNT 252 TH/MM3 (150-450); RED CELL DISTRIBUTION WIDTH 13.2 % (11.6-17.2); WHITE BLOOD COUNT 8.9 TH/MM3 (4.0-11.0)
--- NOTE | 2017-09-17 22:48 | RADRPT ---
EXAM DATE/TIME: 09/17/2017 22:19 [facility] COMPARISON: No previous studies available for comparison. INDICATIONS : Chest pain and weakness. MEDICAL HISTORY : Hypertension. SURGICAL HISTORY : section. cardiac catheterization ENCOUNTER: Initial ACUITY: 1 day PAIN SCORE: 7/10 LOCATION: mid chest FINDINGS: PA and lateral views of the chest demonstrate the lungs to be symmetrically aerated without evidence of mass, infiltrate or effusion. The cardiomediastinal contours are unremarkable. Osseous structure s are intact. CONCLUSION: No acute disease. Kenn Caraballo MD on September 17, 2017 at 22:45 Board Certified Radiologist. This report was verified electronically.
[2017-09-17 22:59] LABS: ALBUMIN 3.1 GM/DL (3.4-5.0); AST (GOT) 10 U/L (15-37); BICARBONATE 27.5 MEQ/L (21.0-32.0); BLOOD UREA NITROGEN 13 MG/DL (7-18); CHLORIDE 98 MEQ/L (98-107); GLOMERULAR FILTRATION RATE 84 ML/MIN (>89); GLUCOSE,RANDOM 251 MG/DL (74-106); MAGNESIUM 1.4 MG/DL (1.5-2.5); SODIUM (NA) 135 MEQ/L (136-145)
[2017-09-17 23:00] LABS: ALT (GPT) 17 U/L (10-53)
[2017-09-17 23:04] LABS: ALKALINE PHOSPHATASE 76 U/L (45-117); TOTAL BILIRUBIN ADULT 0.3 MG/DL (0.2-1.0); TOTAL PROTEIN 7.1 GM/DL (6.4-8.2); TROPONIN I LESS THAN 0.02 NG/ML (0.02-0.05)
[2017-09-17 23:15] LABS: PROTHROMBIN TIME - PATIENT 10.2 SEC (9.8-11.6)
[2017-09-18] MEDS ORDERED: SODIUM CHLORIDE 0.9% FLUSH 10 ML FLUSH IV FLUSH PRN (00:15)
[2017-09-18 00:48] VITALS: BP 135/76; PULSE 78; RESP 15; O2SAT 100
[2017-09-18 03:00] VITALS: BP 119/60; PULSE 85; RESP 18; TEMP 98; O2SAT 95
[2017-09-18 04:09] LABS: TROPONIN I LESS THAN 0.02 NG/ML (0.02-0.05)
[2017-09-18 04:19] VITALS: PULSE 85
[2017-09-18 04:22] LABS: TROPONIN I LESS THAN 0.02 NG/ML (0.02-0.05)
[2017-09-18] MEDS ORDERED: SODIUM CHLORIDE 0.9% FLUSH 10 ML FLUSH IV FLUSH SCH (09:00)
--- NOTE | 2017-09-18 09:41 | HHI.HP ---
HPI Service Chest pain center Primary Care Physician Douglas Morales MD Follows at [facility] for cardiology with Dr. Sandoval Follows at [facility] for pain management Chief Complaint Chest pain History of Present Illness Very poor historian, 42-year-old obese diabetic lady presented with complaints of chest pain. She has recently had a "cold" with fever about 2 days ago cough and diffuse muscle aches. 2 days ago she developed pain in her left upper chest. (Apparently told the emergency room she had pain in the substernal right chest area) she complains that the pain lasted much of the day 2 days ago and then all day yesterday although she slept for half a day. She describes the pain as sharp but 7 out of 10 knifelike pain there is no radiation nothing seems to precipitate and there are no associated factors other than shortness of breath which may be chronic. She did receive some relief with nitroglycerin. She has a prior history of congestive heart failure was seen and evaluated at [facility] including catheterization approximately 3 months ago. She was told that her heart pumps about a third of what it should that she had a "little" blockage but nothing that needed a stent. Her pain has currently been relieved and she is resting reasonably comfortably. Her blood pressure is been under fairly good control her sugar frequently runs over 300 but she says was down to about 240 yesterday. Review of Systems Consitutional: COMPLAINS OF: Fatigue, Fever Respiratory: COMPLAINS OF: See HPI Cardiovascular: COMPLAINS OF: See HPI Musculoskeletal: COMPLAINS OF: Back pain Past Family Social History Allergies: Coded Allergies: No Known Allergies (Verified Allergy, Unknown, 09/18/17) Past Medical History Diabetes Hypertension Hyperlipidemia Congestive heart failure Cardiomyopathy Past Surgical History 2 Reported Medications Reported Meds & Active Scripts Active Urecholine (Bethanechol Chloride) 10 Mg Tab 10 Mg PO Q8HR Pantoprazole (Pantoprazole Sodium) 40 Mg Tab 40 Mg PO DAILY Carafate (Sucralfate) 1 Gm Tab 1 Gm PO ACHS Reported Lantus Inj (Insulin Glargine) 1,000 Unit/10 Ml Vial 10 Units SQ HS Lantus Inj (Insulin Glargine) 1,000 Unit/10 Ml Vial 25 Units SQ AC BREAKFAST Novolog Inj (Insulin Aspart) 1,000 Unit/10 Ml Vial 3 Units SQ TID Aspirin 81 Mg Chew 81 Mg CHEW DAILY Atorvastatin (Atorvastatin Calcium) 40 Mg Tab 40 Mg PO HS Flexeril (Cyclobenzaprine HCl) 10 Mg Tab 10 Mg PO TID Entresto (Sacubitril-Valsartan) 49-51 Mg Tab 1 Tab PO DAILY Carvedilol 25 Mg Tab 25 Mg BID Metformin (Metformin HCl) 500 Mg Tab 500 Mg PO BIDPC Gabapentin 300 Mg Cap 300 Mg PO TID Hydrochlorothiazide 25 Mg Tab 25 Mg PO DAILY Active Ordered Medications Current Medications Medications (Trade) Dose Ordered Sig/Nicolas Route Start Time Stop Time Status Last Admin (NS Flush) 2 ml UNSCH PRN IVF 09/17/17 22:15 (NS Flush) 2 ml UNSCH PRN IV FLUSH 09/18/17 00:15 (NS Flush) 2 ml BID IV FLUSH 09/18/17 09:00 (NovoLIN R SUPPLEMENTAL SCALE) 1 ACHS SLIDING SCALE SQ 09/18/17 12:00 09/19/17 06:00 Family History Not contributory at present Social History Uses alcohol tobacco and occasional marijuana Physical Exam Vital Signs Vital Signs Date Time Temp Pulse Resp B/P (MAP) Pulse Ox O2 Delivery O2 Flow Rate FiO2 09/18/17 04:19 85 09/18/17 03:36 09/18/17 03:00 98.0 85 18 119/60 (79) 95 09/18/17 00:48 78 15 135/76 (95) 100 Room Air 09/17/17 22:28 83 20 143/81 (101) 98 Room Air 09/17/17 22:27 20 98 Room Air 09/17/17 22:26 84 20 140/78 (98) 98 Room Air 09/17/17 22:15 98 Room Air 09/17/17 21:45 99.8 88 20 212/100 (137) 100 Physical Exam GENERAL: Well-developed obese resting comfortably in bed. Accompanied by somewhat antagonistic male SKIN: Warm and dry. Several tattoos HEAD: Atraumatic. Normocephalic. EYES: Pupils equal and round. No scleral icterus. No injection or drainage. ENT: No nasal bleeding or discharge. Mucous membranes pink and moist. NECK: Trachea midline. No JVD. CARDIOVASCULAR: Regular rate and rhythm. No gallop rub or murmur. PMI is not palpable. RESPIRATORY: No accessory muscle use. Clear to auscultation with decreased breath sounds. GASTROINTESTINAL: Abdomen soft, slightly tender epigastrium and right upper quadrant, nondistended. Hepatic and splenic margins not palpable. MUSCULOSKELETAL: Extremities without clubbing, cyanosis, or edema. No obvious deformities. NEUROLOGICAL: Awake and alert. No obvious cranial nerve deficits. Motor grossly within normal limits. Five out of 5 muscle strength in the arms and legs. Normal speech. PSYCHIATRIC: Mood seems a bit sullen but cooperative; Laboratory Laboratory Tests Test 09/17/17 22:10 09/18/17 01:30 09/18/17 02:19 White Blood Count 8.9 Red Blood Count 4.70 Hemoglobin 13.2 Hematocrit 39.7 Mean Corpuscular Volume 84.5 Mean Corpuscular Hemoglobin 28.0 Mean Corpuscular Hemoglobin Concent 33.1 Red Cell Distribution Width 13.2 Platelet Count 252 Mean Platelet Volume 9.5 Neutrophils (%) (Auto) 70.9 Lymphocytes (%) (Auto) 20.0 Monocytes (%) (Auto) 7.2 Eosinophils (%) (Auto) 1.5 Basophils (%) (Auto) 0.4 Neutrophils # (Auto) 6.3 Lymphocytes # (Auto) 1.8 Monocytes # (Auto) 0.6 Eosinophils # (Auto) 0.1 Basophils # (Auto) 0.0 CBC Comment DIFF FINAL Differential Comment Prothrombin Time 10.2 Prothromb Time International Ratio 1.0 Activated Partial Thromboplast Time 27.5 Blood Urea Nitrogen 13 Creatinine 0.90 Random Glucose 251 Total Protein 7.1 Albumin 3.1 Calcium Level 9.0 Magnesium Level 1.4 Alkaline Phosphatase 76 Aspartate Amino Transf (AST/SGOT) 10 Alanine Aminotransferase (ALT/SGPT) 17 Total Bilirubin 0.3 Sodium Level 135 Potassium Level 3.8 Chloride Level 98 Carbon Dioxide Level 27.5 Anion Gap 10 Estimat Glomerular Filtration Rate 84 Total Creatine Kinase 48 37 43 Troponin I LESS THAN 0.02 LESS THAN 0.02 LESS THAN 0.02 Lipase 77 Result Diagram: 09/17/17220909/17/172209 Imaging Negative chest x-ray Course Patient has ruled out 3 troponin and EKGs. Had recent catheterization at [facility] with no significant blockage but a low ejection fraction. She is followed by the steam gigger at [facility] with scheduled appointment this coming week. It is unlikely that her current chest pain is cardiac but she did get relief with nitroglycerin so a long-acting nitrate will be started. More likely her pain is related to coughing and upper respiratory infection but GI also a possibility in light of her diabetes. Will do no further testing but get her sugar down start long-acting nitrate and discharge for follow-up next week at [facility] as scheduled. Caprini VTE Risk Assessment Caprini VTE Risk Assessment: No/Low Risk (score <= 1) Caprini Risk Assessment Model Point Value = 1 Point Value = 2 Point Value = 3 Point Value = 5 Age 41-60 Minor surgery BMI > 25 kg/m2 Swollen legs Varicose veins or History of unexplained or recurrent spontaneous Oral contraceptives or hormone replacement Sepsis (< 1 month) Serious lung disease, including pneumonia (< 1 month) Abnormal pulmonary function Acute myocardial infarction Congestive heart failure (< 1 month) History of inflammatory bowel disease Medical patient at bed rest Age 61-74 Arthroscopic surgery Major open surgery (> 45 min) Laparoscopic surgery (> 45 min) Malignancy Confined to bed (> 72 hours) Immobilizing plaster cast Central venous access Age >= 75 History of VTE Family history of VTE Factor V Leiden Prothrombin [id number] Lupus anticoagulant Anticardiolipin antibodies Elevated serum homocysteine Heparin-induced thrombocytopenia Other congenital or acquired thrombophilia Stroke (< 1 month) Elective arthroplasty Hip, pelvis, or leg fracture Acute spinal cord injury (< 1 month) Prophylaxis Regimen Total Risk Factor Score Risk Level Prophylaxis Regimen 0-1 Low Early ambulation 2 Moderate Order ONE of the following: *Sequential Compression Device (SCD) *Heparin 5000 units SQ BID 3-4 Higher Order ONE of the following medications: *Heparin 5000 units SQ TID *Enoxaparin/Lovenox 40 mg SQ daily (WT < 150 kg, CrCl > 30 mL/min) *Enoxaparin/Lovenox 30 mg SQ daily (WT < 150 kg, CrCl > 10-29 mL/min) *Enoxaparin/Lovenox 30 mg SQ BID (WT < 150 kg, CrCl > 30 mL/min) AND/OR *Sequential Compression Device (SCD) 5 or more Highest Order ONE of the following medications: *Heparin 5000 units SQ TID (Preferred with Epidurals) *Enoxaparin/Lovenox 40 mg SQ daily (WT < 150 kg, CrCl > 30 mL/min) *Enoxaparin/Lovenox 30 mg SQ daily (WT < 150 kg, CrCl > 10-29 mL/min) *Enoxaparin/Lovenox 30 mg SQ BID (WT < 150 kg, CrCl > 30 mL/min) AND *Sequential Compression Device (SCD) Jaswinder Still MD Sep 18, 2017 09:41
[2017-09-18] MEDS ORDERED: ISOS30TA3 PO (09:48)
[2017-09-18] MEDS ORDERED: INSULIN NovoLIN REGULAR SUPPLEMENTAL SCALE SQ SCH (12:00)
--- NOTE | 2017-09-18 12:43 | EKG ---
Date Performed: 09/18/2017 Time Performed: 06:33:31 PTAGE: 42 years EKG: Sinus rhythm NONSPECIFIC T-WAVE ABNORMALITY BORDERLINE ECG No significant change PREVIOUS TRACING : 09/18/2017 04.21 DOCTOR: Jaswinder Still Interpretating Date/Time 09/18/2017 12:42:41
--- NOTE | 2017-09-18 12:44 | EKG ---
Date Performed: 09/18/2017 Time Performed: 01:32:26 PTAGE: 42 years EKG: Sinus rhythm VOLTAGE CRITERIA FOR LVH POSSIBLE INFERIOR MYOCARDIAL INFARCTION ABNORMAL ECG No significant change PREVIOUS TRACING : 10/07/2016 08.06 DOCTOR: Jaswinder Still Interpretating Date/Time 09/18/2017 12:43:24
--- NOTE | 2017-09-18 12:44 | EKG ---
Date Performed: 09/18/2017 Time Performed: 04:21:17 PTAGE: 42 years EKG: Sinus rhythm NONSPECIFIC T-WAVE ABNORMALITY BORDERLINE ECG No significant change PREVIOUS TRACING : 09/18/2017 01.32 DOCTOR: Jaswinder Still Interpretating Date/Time 09/20/2017 07:32:12
--- NOTE | 2017-09-18 12:45 | EKG ---
Date Performed: 09/17/2017 Time Performed: 21:56:46 PTAGE: 42 years EKG: Sinus rhythm MODERATE VOLTAGE CRITERIA FOR LVH, CONSIDER NORMAL VARIANT NONSPECIFIC T-WAVE ABNORMALITY BORDERLINE ECG No significant change NO PREVIOUS TRACING DOCTOR: Jaswinder Still Interpretating Date/Time 09/18/2017 12:44:42
[2017-09-19] MEDS ORDERED: ISOSORBIDE MONONITRATE 30 MG CR TAB (IMDUR) PO SCH (07:00)
== END 2017-09-18 10:19 | disposition home or self-care (01) ==
LOC: NEPE 21:43 → NEDA 09-18 00:15 → NEPHCDU 09-18 01:43
PROVIDERS: ADMIT Internal Medicine Interventional Cardiology; ATTEND Internal Medicine Interventional Cardiology
DX: R07.9 Chest pain, unspecified (principal); R06.02 Shortness of breath; R50.9 Fever, unspecified; M79.1 Myalgia; R05 Cough; R53.1 Weakness; I11.0 Hypertensive heart disease with heart failure; I50.9 Heart failure, unspecified; R94.31 Abnormal electrocardiogram [ECG] [EKG]; E11.9 Type 2 diabetes mellitus without complications; E78.00 Pure hypercholesterolemia, unspecified; E66.9 Obesity, unspecified; F17.200 Nicotine dependence, unspecified, uncomplicated; F12.90 Cannabis use, unspecified, uncomplicated; Z79.899 Other long term (current) drug therapy; Z79.82 Long term (current) use of aspirin
CPT/HCPCS: 71046; 80053; 82550; 83690; 83735; 84484; 85025; 85610; 85730; 93005; 99285; G0378

== ENCOUNTER 2017-11-30 00:47 | Inpatient (IN) | payer MEDICAID ==
[~2017-11-30] VITALS: Ht 175.3 cm; Wt 116.8 kg
[2017-11-30] VITALS (13 sets, daily range): BP systolic 133–238; BP diastolic 62–130; PULSE 72–94; RESP 16–22; TEMP 97.4–99.1; O2SAT 95–100
[~2017-11-30 00:47] MED LIST changes: +ASPI-516 CHEW; +ATOR40TA16 PO; -CANA1TAB3 PO; -CARD1TAB PO; -CART240C PO; +CARV25TA; +CYCL10TA PO; +ISOS30TA3 PO; +LANTUS2P SQ; -LISI-515 PO; +METF500T PO; +NOVOLOGP2 SQ; -OXYC1TAB63 PO; +SACU1TAB7 PO; -ZOCO20TA PO
[2017-11-30] MEDS: SODIUM CHLOR 0.9% 1000 ML INJ 1,000 ML IV SCH ×2 (02:00→09:58)
--- NOTE | 2017-11-30 02:32 | RADRPT ---
EXAM DATE: 11/30/2017 2:22 AM EDT AGE/SEX: 42 years / Female INDICATIONS: Left sided numbness,cough. CLINICAL DATA: This is the patient's initial encounter. Patient reports that signs and symptoms have been present for 1 day and indicates a pain score of 0/10. MEDICAL/SURGICAL HISTORY: None. None. COMPARISON: [facility] [place]ST SINGLE AP, 10/06/2016. . FINDINGS: A single AP view of the chest demonstrates the lungs to be symmetrically aerated without evidence of mass, infiltrate or effusion. The cardiomediastinal contours are unremarkable. Osseous structures a re intact. CONCLUSION: No acute cardiopulmonary disease. There is no evidence of pneumonia. Electronically signed by: Darren Garvey MD 11/30/2017 2:30 AM EDT
--- NOTE | 2017-11-30 02:34 | PD ---
HPI Chief Complaint: Numbness/Tingling Time Seen by Provider: 01:52 Travel History International Travel<30 days: No Contact w/Intl Traveler<30days: No Traveled to known affect area: No History of Present Illness HPI The patient is a 42 year old female who presents to the [facility] emergency department with a history of pain and weakness in the left arm that she reports began yesterday morning. She reports that she went to the Social Security office and also noticed at that time that she was experiencing weakness in the left leg. The patient reports that the pain in her left arm is a shooting pain that goes up from the fingers all the way up to the shoulder and left side of her neck. She denies any trauma or injury. She does however report having history of chronic back pain and degenerative disc disease with herniated disks in her back. The patient reports that she has been taking her blood pressure medication on a regular basis, however she does arrive with a blood pressure of 200/100. The patient is on low-dose aspirin daily reports that she did take her low-dose aspirin today. She reports having chronic chest pain and shortness of breath that is no worse than usual today. She denies having any facial droop or difficulty with word finding ability. She does report having a sensation of blurred vision. She reports also having numbness to the left upper extremity. On review of systems otherwise, the patient denies having any known recent fevers, cough or congestion, abdominal pain, vomiting, diarrhea, or urinary symptoms. She denies any prior history of stroke. [facility] Past Medical History Narrative Medical The patient's past medical history is significant for diabetes mellitus, hypertension, hyperlipidemia, congestive heart failure, cardiomyopathy, degenerative disc disease with chronic back pain. Blood Disorders: No Cancer: No Cardiac Catheterization: Yes (jun 2018) Cardiovascular Problems: Yes High Cholesterol: Yes Congestive Heart Failure: Yes Cerebrovascular Accident: No Diabetes: Yes Patient Takes Glucophage: Yes (11/29/2017 2100) Diminished Hearing: No Endocrine: Yes Genitourinary: No Hypertension: Yes Musculoskeletal: Yes (LOW BACK PAIN) Neurologic: Yes Psychiatric: No Reproductive: No Respiratory: No Migraines: Yes Myocardial Infarction: No Renal Failure: No Sickle Cell Disease: No Ulcer: No Tetanus Vaccination: < 5 Years Influenza Vaccination: No ?: Not LMP: 11/29/2017 : 2 Para: 2 Miscarriage: 0 : 0 Past Surgical History Narrative Surgical The patient's past surgical history is significant for 2 prior C-sections. Abdominal Surgery: No Cardiac Surgery: No Section: Yes (X 2) Coronary Artery Bypass Graft: No Ear Surgery: No Endocrine Surgery: No Eye Surgery: No Genitourinary Surgery: Yes Gynecologic Surgery: Yes ( x2) Oral Surgery: No Thoracic Surgery: No Other Surgery: Yes Social History Alcohol Use: Yes (SOCIAL) Tobacco Use: Yes (1PP WEEK) Substance Use: Yes (pot - occassionaly) Allergies-Medications (Allergen,Severity, Reaction): Coded Allergies: No Known Allergies (Verified Allergy, Unknown, 11/30/17) Reported Meds & Prescriptions Reported Meds & Active Scripts Active Isosorbide Mononitrate ER (Isosorbide Mononitrate) 30 Mg Sammie 30 Mg PO DAILY@ 07 MDD ONE 30 Days Urecholine (Bethanechol Chloride) 10 Mg Tab 10 Mg PO Q8HR Pantoprazole (Pantoprazole Sodium) 40 Mg Tab 40 Mg PO DAILY Carafate (Sucralfate) 1 Gm Tab 1 Gm PO ACHS Reported Lantus Inj (Insulin Glargine) 1,000 Unit/10 Ml Vial 10 Units SQ HS Lantus Inj (Insulin Glargine) 1,000 Unit/10 Ml Vial 25 Units SQ AC BREAKFAST Novolog Inj (Insulin Aspart) 1,000 Unit/10 Ml Vial 3 Units SQ TID Aspirin 81 Mg Chew 81 Mg CHEW DAILY Atorvastatin (Atorvastatin Calcium) 40 Mg Tab 40 Mg PO HS Flexeril (Cyclobenzaprine HCl) 10 Mg Tab 10 Mg PO TID Entresto (Sacubitril-Valsartan) 49-51 Mg Tab 1 Tab PO DAILY Carvedilol 25 Mg Tab 25 Mg BID Metformin (Metformin HCl) 500 Mg Tab 500 Mg PO BIDPC Gabapentin 300 Mg Cap 300 Mg PO TID Hydrochlorothiazide 25 Mg Tab 25 Mg PO DAILY Review of Systems Except as stated in HPI: all other systems reviewed are Neg General / Constitutional: No: Fever Eyes: No: Visual changes HENT: Positive: Neck Pain, No: Headaches, Rhinorrhea, Congestion, Neck Stiffness Cardiovascular: No: Chest Pain or Discomfort Respiratory: No: Shortness of Breath Gastrointestinal: No: Abdominal Pain Genitourinary: No: Dysuria Musculoskeletal: Positive: Myalgias, Limited ROM, Pain Skin: No Rash Neurologic: Positive: Weakness, Focal Abnormalities, Sensory Disturbance, No: Change in Mentation, Slurred Speech Psychiatric: No: Depression Endocrine: No: Polydipsia Hematologic/Lymphatic: No: Easy Bruising Physical Exam Narrative General: The patient is a well-developed well-nourished female in no acute distress. Head and Neck exam: Head is normocephalic atraumatic. Eyes: EOMI, pupils are equal round and reactive to light. Nose: Midline septum with pink mucous membranes Mouth: Dentition unremarkable. Moist mucus membranes. Posterior oropharynx is not erythematous. No tonsillar hypertrophy. Uvula midline. Airway patent. Neck: No palpable lymphadenopathy. No nuchal rigidity. No thyromegaly. No spinous process tenderness to palpation. No step-off or crepitus. No erythema or ecchymosis per Cardiovascular: Regular rate and rhythm without murmurs, gallops, or rubs. No pulse deficit to the extremities on simultaneous auscultation and palpation of her radial artery. Lungs: Clear to auscultation bilaterally. No wheezes, rhonchi, or rales. Abdomen: Soft, without tenderness to palpation in all 4 quadrants of the abdomen. No guarding, rebound, or rigidity. Normal bowel sounds are audible. No tenderness on palpation of McBurney's point. Extremities: No clubbing, cyanosis, or edema. 2+ pulses in all 4 extremities. No calf tenderness on palpation. Back: No spinous process tenderness to palpation. No costovertebral angle tenderness to palpation. Neurologic Exam: Cranials 2 through 12 are intact. The patient has strength that is 4/5 in the left upper and left lower extremity. The patient has numbness reported in a glove distribution all the way up her arm on the left arm. No other numbness or tingling to her extremities. Skin Exam: No rash noted. Intact skin that is warm and dry. Data Data Last Documented VS Vital Signs Date Time Temp Pulse Resp B/P (MAP) Pulse Ox O2 Delivery O2 Flow Rate FiO2 11/30/17 02:41 84 18 192/84 (120) 99 Room Air 11/30/17 01:17 98.5 Orders Orders Electrocardiogram (11/30/17 01:52) Complete Blood Count With Diff (11/30/17 01:52) Comprehensive Metabolic Panel (11/30/17 01:52) Troponin I (11/30/17:52) Prothrombin Time / Inr (Pt) (11/30/17:52) Act Partial Throm Time (Ptt) (11/30/17:52) Lipase (11/30/17:52) Urinalysis - C+S If Indicated (11/30/17:52) Magnesium (Mg) (11/30/17:52) Chest, Single Ap (11/30/17 01:52) Ct Brain W/O Iv Contrast(Rout) (11/30/17 01:52) Iv Access Insert/Monitor (11/30/17:52) Ecg Monitoring (11/30/17:52) Oximetry (11/30/17:52) Ed Urine Pregnancytest Poc (11/30/17:52) Drug Screen, Random Urine (11/30/17 01:52) Alcohol (Ethanol) (11/30/17:52) Sodium Chlor 0.9% 1000 Ml Inj (Ns 1000 M (11/30/17 02:00) [place] (11/30/17 01:52) Ct Cerv Spine W/O Contrast (11/30/17 02:41) Aspirin (Aspirin) (11/30/17 03:45) Admit Order (Ed Use Only) (11/30/17 03:43) Place In Observation (11/30/17 ) Vital Signs (Adult) Q4H (11/30/17 03:44) Neuro Checks Q4H (11/30/17 03:44) [employer] / Telemetry .CONTINUOUS (11/30/17 03:44) Sodium Chloride 0.9% Flush (Ns Flush) (11/30/17 03:45) Sodium Chloride 0.9% Flush (Ns Flush) (11/30/17 09:00) Acetaminophen (Tylenol) (11/30/17 03:45) Scd Bilateral/Knee High TOREY.BID (11/30/17 03:44) Naloxone Inj (Narcan Inj) (11/30/17 03:45) Magnesium Hydroxide Liq (Milk Of Magnesi (11/30/17 03:45) Sennosides (Senokot) (11/30/17 03:45) Bisacodyl Supp (Dulcolax Supp) (11/30/17 03:45) Lactulose Liq (Lactulose Liq) (11/30/17 03:45) Ondansetron Odt (Zofran Odt) (11/30/17 04:00) Labs Laboratory Tests Test 11/30/17 01:54 11/30/17 03:45 White Blood Count 8.1 TH/MM3 Red Blood Count 4.76 MIL/MM3 Hemoglobin 13.4 GM/DL Hematocrit 41.1 % Mean Corpuscular Volume 86.3 FL Mean Corpuscular Hemoglobin 28.1 PG Mean Corpuscular Hemoglobin Concent 32.5 % Red Cell Distribution Width 13.0 % Platelet Count 249 TH/MM3 Mean Platelet Volume 9.5 FL Neutrophils (%) (Auto) 57.7 % Lymphocytes (%) (Auto) 34.5 % Monocytes (%) (Auto) 6.5 % Eosinophils (%) (Auto) 1.1 % Basophils (%) (Auto) 0.2 % Neutrophils # (Auto) 4.7 TH/MM3 Lymphocytes # (Auto) 2.8 TH/MM3 Monocytes # (Auto) 0.5 TH/MM3 Eosinophils # (Auto) 0.1 TH/MM3 Basophils # (Auto) 0.0 TH/MM3 CBC Comment DIFF FINAL Differential Comment Prothrombin Time 9.7 SEC Prothromb Time International Ratio 1.0 RATIO Activated Partial Thromboplast Time 27.0 SEC Blood Urea Nitrogen 10 MG/DL Creatinine 0.85 MG/DL Random Glucose 339 MG/DL Total Protein 7.6 GM/DL Albumin 3.4 GM/DL Calcium Level 8.5 MG/DL Magnesium Level 2.0 MG/DL Alkaline Phosphatase 77 U/L Aspartate Amino Transf (AST/SGOT) 13 U/L Alanine Aminotransferase (ALT/SGPT) 18 U/L Total Bilirubin 0.4 MG/DL Sodium Level 135 MEQ/L Potassium Level 4.3 MEQ/L Chloride Level 100 MEQ/L Carbon Dioxide Level 27.7 MEQ/L Anion Gap 7 MEQ/L Estimat Glomerular Filtration Rate 90 ML/MIN Troponin I LESS THAN 0.02 NG/ML Lipase 73 U/L Ethyl Alcohol Level LESS THAN 3 MG/DL Urine Color YELLOW Urine Turbidity CLEAR Urine pH 6.0 Urine Specific [place] 1.024 Urine Protein NEG mg/dL Urine Glucose (UA) 1000 mg/dL Urine Ketones NEG mg/dL Urine Occult Blood LARGE Urine Nitrite NEG Urine Bilirubin NEG Urine Urobilinogen LESS THAN 2.0 MG/DL Urine Leukocyte Esterase NEG Urine RBC 28 /hpf Urine WBC 1 /hpf Urine Squamous Epithelial Cells 1 /hpf Microscopic Urinalysis Comment CULT NOT INDICATED Urine Opiates Screen NEG Urine Barbiturates Screen NEG Urine Amphetamines Screen NEG Urine Benzodiazepines Screen NEG Urine Cocaine Screen NEG Urine Cannabinoids Screen POS MDM Medical Decision Making Medical Screen Exam Complete: Yes Emergency Medical Condition: Yes Medical Record Reviewed: Yes Differential Diagnosis Ischemic stroke, versus hemorrhagic stroke, versus cervical radiculopathy Narrative Course During the course of the patient's emergency department visit, the patient's history, examination, and differential diagnosis were reviewed with the patient. The patient was placed on a lumber driver with oximetry and frequent blood pressure monitoring. The patient had IV access obtained and blood work sent for analysis. The patient had a EKG done on arrival that shows a sinus rhythm heart rate of 87, QRS duration 94 ms, QTC [address] segment elevation is noted. T waves are inverted in V1, aVL. The patient was initially provided the patient was placed with head of the bed flat, normal saline at 70 mL/h is started. The patient's laboratory and radiologic studies were reviewed and remarkable for A CBC that is within normal limits, CMP is remarkable for a sodium of 135, glucose 339, AST 13, troponin I less than 0.02, lipase 73, PT 9.7, PTT 27, urine drug screen is positive for cannabinoids, alcohol level less than 3 per. Urinalysis shows 1000 glucose large occult blood, 28 RBCs, culture not indicated. A chest x-ray shows no acute cardiopulmonary disease. CT scan of the brain shows no acute abnormality. CT scan of the C-spine shows degenerative disc disease at the C5-C6 level and posterior disc osteophyte complex greatest in the right parasagittal region. There is mass-effect on the anterior thecal sac and comes in close contact with anterior cord which is not well delineated. The patient was given aspirin 325 mg p.o. 1. The patient's results were discussed with the patient, including the plan of care. I explained that further testing and/ or monitoring is indicated based on the patient's history, examination, and/ or laboratory findings. Therefore, I recommended admission for additional evaluation. The patient expressed understanding and was agreeable with this plan. The patient was admitted to the hospital in stable condition and sent to a bed under the care of the [facility]. Physician Communication Physician Communication The patient's case including history, pertinent physical examination findings, and laboratory studies were discussed with Dr. Sandoval. It was agreed that the patient would be admitted to the [facility] service. Diagnosis Primary Impression: Left-sided weakness Additional Impression: Left arm pain Admitting Information Admitting Physician Requests: Observation Bere Weston MD November 30, 2017 02:34
[2017-11-30 02:41] LABS: AUTOMATED NEUTROPHIL # 4.7 TH/MM3 (1.8-7.7); BASOPHIL % 0.2 % (0.0-2.0); EOSINOPHIL # 0.1 TH/MM3 (0-0.4); EOSINOPHIL % 1.1 % (0.0-4.0); HEMATOCRIT 41.1 % (35.0-46.0); HEMOGLOBIN 13.4 GM/DL (11.6-15.3); LYMPH % 34.5 % (9.0-44.0); LYMPHOCYTE # 2.8 TH/MM3 (1.0-4.8); MEAN CELL VOLUME 86.3 FL (80.0-100.0); MEAN CORPUSCULAR HEMOGLOBIN 28.1 PG (27.0-34.0); MEAN CORPUSCULAR HGB CONC 32.5 % (32.0-36.0); MEAN PLATELET VOLUME 9.5 FL (7.0-11.0); MONO % 6.5 % (0.0-8.0); MONOCYTE # 0.5 TH/MM3 (0-0.9); NEUT % 57.7 % (16.0-70.0); PLATELET COUNT 249 TH/MM3 (150-450); RED BLOOD COUNT 4.76 MIL/MM3 (4.00-5.30); WHITE BLOOD COUNT 8.1 TH/MM3 (4.0-11.0)
[2017-11-30 02:47] LABS: PROTHROMBIN TIME - PATIENT 9.7 SEC (9.8-11.6)
[2017-11-30 03:03] LABS: ALBUMIN 3.4 GM/DL (3.4-5.0); AST (GOT) 13 U/L (15-37); BICARBONATE 27.7 MEQ/L (21.0-32.0); BLOOD UREA NITROGEN 10 MG/DL (7-18); CALCIUM 8.5 MG/DL (8.5-10.1); CHLORIDE 100 MEQ/L (98-107); CREATININE 0.85 MG/DL (0.50-1.00); GLOMERULAR FILTRATION RATE 90 ML/MIN (>89); GLUCOSE,RANDOM 339 MG/DL (74-106); SODIUM (NA) 135 MEQ/L (136-145)
[2017-11-30 03:09] LABS: ALKALINE PHOSPHATASE 77 U/L (45-117); ALT (GPT) 18 U/L (10-53); TOTAL BILIRUBIN ADULT 0.4 MG/DL (0.2-1.0); TOTAL PROTEIN 7.6 GM/DL (6.4-8.2); TROPONIN I LESS THAN 0.02 NG/ML (0.02-0.05)
--- NOTE | 2017-11-30 03:20 | RADRPT ---
EXAM DATE: 11/30/2017 3:13 AM EDT AGE/SEX: 42 years / Female INDICATIONS: Upper extremity numbness. CLINICAL DATA: This is the patient's initial encounter. Patient reports that signs and symptoms have been present for 1 day and indicates a pain score of 0/10. MEDICAL/SURGICAL HISTORY: Congestive heart failure. Hypertension. Diabetes. None. RADIATION DOSE: 27.23 CTDI (mGy) COMPARISON: No prior [facility] exams available for comparison. TECHNIQUE: Contiguous axial images were obtained using helical multirow detector technique. The vol umetric data was post-processed with multiplanar reconstruction in oblique axial, sagittal, and coron al planes. Using automated exposure control and adjustment of the mA and/or kV according to patient s ize, radiation dose was kept as low as reasonably achievable to obtain optimal diagnostic quality haresh ges. Vertebrae: Normal vertebral body height. Discs: Degenerative disc changes are present at the C5-6 level with disc space narrowing and anteri or spurring. There is hypertrophic change extending off the posterior aspect upper C6 vertebral body as well. Alignment: Normal. No subluxation. FINDINGS: C2-3: The bony spinal canal is normal in size. No evidence of disc bulge or herniation. The neural foramina are bilaterally patent. C3-4: The bony spinal canal is normal in size. No evidence of disc bulge or herniation. The neural foramina are bilaterally patent. C4-5: The bony spinal canal is normal in size. No evidence of disc bulge or herniation. The neural foramina are bilaterally patent. C5-6: Degenerative disc change with posterior disc osteophyte complex greatest in the right parasagi ttal region with mass effect on the anterior thecal sac. This comes in close contact with the anterio r cord which is poorly delineated. The neural foramina are patent. C6-7: The bony spinal canal is normal in size. There is no evidence of disc bulge or herniation. The neural foramina bilaterally. C7-T1: The bony spinal canal is normal in size. No evidence of disc bulge or herniation. The neura l foramina are bilaterally patent. CONCLUSION: Degenerative disc change at the C5-6 level with posterior disc osteophyte complex greates t in the right parasagittal region. There is mass effect on the anterior thecal sac and comes in clos e contact with the anterior cord which is not well delineated. Electronically signed by: Darren Garvey MD 11/30/2017 3:19 AM EDT
--- NOTE | 2017-11-30 03:21 | RADRPT ---
EXAM DATE: 11/30/2017 3:11 AM EDT AGE/SEX: 42 years / Female INDICATIONS: Upper extremity numbness. CLINICAL DATA: This is the patient's initial encounter. Patient reports that signs and symptoms have been present for 1 day and indicates a pain score of 0/10. MEDICAL/SURGICAL HISTORY: Congestive heart failure. Hypertension. Diabetes. None. RADIATION DOSE: 64.63 CTDI (mGy) [place]PARISON: [facility] [place]2013. . TECHNIQUE: CT of the head without contrast. Using automated exposure control and adjustment of the mA and/or kV according to patient size, radiation dose was kept as low as reasonably achievable to ob tain optimal diagnostic quality images. FINDINGS: Cerebrum: The ventricles are normal for age. No evidence of midline shift, mass lesion, hemorrhage or acute infarction. No extraaxial fluid collections are seen. Posterior Fossa: The cerebellum and brainstem are intact. The 4th ventricle is midline. The cerebe llopontine angle is unremarkable. Extracranial: The visualized portion of the orbits is intact. Skull: The calvaria is intact. No evidence of skull fracture. CONCLUSION: 1. Stable unremarkable noncontrast head CT. Electronically signed by: Darren Garvey MD 11/30/2017 3:20 AM EDT
[2017-11-30] MEDS ORDERED: ACETAMINOPHEN 325 MG TAB PO PRN (03:45)
[2017-11-30] MEDS ORDERED: SENNOSIDES 8.6 MG TAB PO PRN (03:45)
[2017-11-30] MEDS ORDERED: SODIUM CHLORIDE 0.9% FLUSH 10 ML FLUSH IV FLUSH PRN (03:45)
[2017-11-30] MEDS ORDERED: MAGNESIUM HYDROXIDE SUSP 30 ML CUP PO PRN (03:45)
[2017-11-30] MEDS ORDERED: ASPIRIN 325 MG TAB PO ONE (03:45)
[2017-11-30] MEDS ORDERED: NALOXONE HCL 0.4 MG/ML AMP IV PUSH PRN (03:45)
[2017-11-30] MEDS ORDERED: BISACODYL 10 MG SUPP RECTAL PRN (03:45)
[2017-11-30] MEDS ORDERED: LACTULOSE SYRUP 20 GM/30 ML CUP PO PRN (03:45)
--- NOTE | 2017-11-30 04:00 | HHI.HP ---
HPI Service [facility] Primary Care Physician Douglas Morales MD Admission Diagnosis Left sided weakness and arm pain Diagnoses: Chief Complaint: Left-sided weakness Travel History International Travel<30 Days: No Contact w/Intl Traveler <30 Da: No Traveled to Known Affected Are: No History of Present Illness 42-year-old female with a history of diabetes, hyperlipidemia, Hypertension, chronic back pain, and CAD presented to the ED with complaints of pain and weakness in her left arm that began yesterday morning. Patient states as the day went on she had weakness in her left leg and had a shooting pain in her left arm from fingers to her shoulder. She is extremely weak on examination. She complains of blurry vision occasionally and cervical burning neck pain. She states since February of 2017 she has been falling down a lot and her last fall was October 11. She denies any trauma to the left side. She does have chronic mid and lower back pain and follows with [facility] pain management in [place]. Her fiance helps her walk and at times she uses a walker. She has not been told she needs surgery as of yet. She complains of chest pain but states this is chronic and her last cath was clean. Home sugars run from 200-300 chronically, and BP stays in the 150s, she follows with Dr. Morales who has been trying to manage her BP and diabetes. She denies any sob, fever or chills. Review of Systems Except as stated in HPI: all other systems reviewed are Neg Past Family Social History Past Medical History Diabetes Hyperlipidemia Hypertension CAD Chronic back pain Past Surgical History 2 Reported Medications Reported Meds & Active Scripts Active Isosorbide Mononitrate ER (Isosorbide Mononitrate) 30 Mg Sammie 30 Mg PO DAILY@ 07 MDD ONE 30 Days Urecholine (Bethanechol Chloride) 10 Mg Tab 10 Mg PO Q8HR Pantoprazole (Pantoprazole Sodium) 40 Mg Tab 40 Mg PO DAILY Carafate (Sucralfate) 1 Gm Tab 1 Gm PO ACHS Reported Lantus Inj (Insulin Glargine) 1,000 Unit/10 Ml Vial 10 Units SQ HS Lantus Inj (Insulin Glargine) 1,000 Unit/10 Ml Vial 25 Units SQ AC BREAKFAST Novolog Inj (Insulin Aspart) 1,000 Unit/10 Ml Vial 3 Units SQ TID Aspirin 81 Mg Chew 81 Mg CHEW DAILY Atorvastatin (Atorvastatin Calcium) 40 Mg Tab 40 Mg PO HS Flexeril (Cyclobenzaprine HCl) 10 Mg Tab 10 Mg PO TID Entresto (Sacubitril-Valsartan) 49-51 Mg Tab 1 Tab PO DAILY Carvedilol 25 Mg Tab 25 Mg BID Metformin (Metformin HCl) 500 Mg Tab 500 Mg PO BIDPC Gabapentin 300 Mg Cap 300 Mg PO TID Hydrochlorothiazide 25 Mg Tab 25 Mg PO DAILY Allergies: Coded Allergies: No Known Allergies (Verified Allergy, Unknown, 11/30/17) Active Ordered Medications Current Medications Medications (Trade) Dose Ordered Sig/Nicolas Route Start Time Stop Time Status Last Admin Sodium Chloride 1,000 ml @ 70 mls/hr [id number] IV 11/30/17 02:00 11/30/17 02:00 (NS Flush) 2 ml UNSCH PRN IV FLUSH 11/30/17 03:45 (NS Flush) 2 ml BID IV FLUSH 11/30/17 09:00 (Tylenol) 650 mg Q4H PRN PO 11/30/17 03:45 (Zofran Odt) 4 mg Q6H PRN PO 11/30/17 04:00 (Narcan Inj) 0.4 mg UNSCH PRN IV PUSH 11/30/17 03:45 (Milk Of Magnesia Liq) 30 ml Q12H PRN PO 11/30/17 03:45 (Senokot) 17.2 mg Q12H PRN PO 11/30/17 03:45 (Dulcolax Supp) 10 mg DAILY PRN RECTAL 11/30/17 03:45 (Lactulose Liq) 30 ml DAILY PRN PO 11/30/17 03:45 (Aspirin Chew) 81 mg DAILY CHEW 11/30/17 09:00 (Lipitor) 40 mg HS PO 11/30/17 21:00 (Urecholine) 10 mg Q8HR PO 11/30/17 06:00 (Coreg) 25 mg BID PO 11/30/17 09:00 (Neurontin) 300 mg TID PO 11/30/17 09:00 (Hydrodiuril) 25 mg DAILY PO 11/30/17 09:00 (Levemir Inj) 10 units HS SQ 11/30/17 21:00 (Levemir Inj) 25 units DAILYAC SQ 11/30/17 08:00 (Imdur) 30 mg DAILY@07 PO 11/30/17 07:00 (Protonix) 40 mg DAILY PO 11/30/17 09:00 (Entresto 49-51 Mg) 1 tab DAILY PO 11/30/17 09:00 (Carafate) 1 gm ACHS PO 11/30/17 08:00 (D50w (Vial) Inj) 50 ml UNSCH PRN IV PUSH 11/30/17 04:45 (Glucagon Inj) 1 mg UNSCH PRN OTHER 11/30/17 04:45 (NovoLOG SUPPLEMENTAL SCALE) 1 ACHS SLIDING SCALE SQ 11/30/17 08:00 (Starkweather 5-325 Mg) 1 tab Q4H PRN PO 11/30/17 04:45 (Starkweather 5-325 Mg) 2 tab Q4H PRN PO 11/30/17 04:45 Family History Mother: diabetes, hypertension, kidney disease. Social History Tobacco use: 3-5 cigarettes a day Alcohol use: occasionally Illicit drug use: Marijuana Physical Exam Vital Signs Vital Signs Date Time Temp Pulse Resp B/P (MAP) Pulse Ox O2 Delivery O2 Flow Rate FiO2 11/30/17 02:41 84 18 192/84 (120) 99 Room Air 11/30/17 01:17 98.5 87 20 207/102 (137) 95 Room Air 11/30/17 01:00 99.1 94 18 238/130 (166) 99 Physical Exam GENERAL: This is a well-nourished, obese patient, who appears in pain and is weak SKIN: No rashes, ecchymoses or lesions. Cool and dry. HEAD: Atraumatic. Normocephalic. EYES: Pupils equal round and reactive. NECK: Trachea midline. No JVD or lymphadenopathy.. CARDIOVASCULAR: Regular rate and rhythm without murmurs, gallops, or rubs. RESPIRATORY: Clear to auscultation. Breath sounds equal bilaterally. No wheezes , rales, or rhonchi. GASTROINTESTINAL: Abdomen soft, non-tender, nondistended. No hepato-splenomegaly , or palpable masses. No guarding. MUSCULOSKELETAL: Extremities without clubbing, cyanosis, or edema. No calf tenderness. Cervical tenderness. NEUROLOGICAL: Awake and alert. LUE and LLE 2/5, RUE and RLE 5/5. Left upper with drift, no facial droop. Normal speech. Laboratory Laboratory Tests Test 11/30/17 01:54 White Blood Count 8.1 Red Blood Count 4.76 Hemoglobin 13.4 Hematocrit 41.1 Mean Corpuscular Volume 86.3 Mean Corpuscular Hemoglobin 28.1 Mean Corpuscular Hemoglobin Concent 32.5 Red Cell Distribution Width 13.0 Platelet Count 249 Mean Platelet Volume 9.5 Neutrophils (%) (Auto) 57.7 Lymphocytes (%) (Auto) 34.5 Monocytes (%) (Auto) 6.5 Eosinophils (%) (Auto) 1.1 Basophils (%) (Auto) 0.2 Neutrophils # (Auto) 4.7 Lymphocytes # (Auto) 2.8 Monocytes # (Auto) 0.5 Eosinophils # (Auto) 0.1 Basophils # (Auto) 0.0 CBC Comment DIFF FINAL Differential Comment Prothrombin Time 9.7 Prothromb Time International Ratio 1.0 Activated Partial Thromboplast Time 27.0 Blood Urea Nitrogen 10 Creatinine 0.85 Random Glucose 339 Total Protein 7.6 Albumin 3.4 Calcium Level 8.5 Magnesium Level 2.0 Alkaline Phosphatase 77 Aspartate Amino Transf (AST/SGOT) 13 Alanine Aminotransferase (ALT/SGPT) 18 Total Bilirubin 0.4 Sodium Level 135 Potassium Level 4.3 Chloride Level 100 Carbon Dioxide Level 27.7 Anion Gap 7 Estimat Glomerular Filtration Rate 90 Troponin I LESS THAN 0.02 Lipase 73 Ethyl Alcohol Level LESS THAN 3 Result Diagram: 11/30/1715311/30/17153 Imaging Last Impressions Cervical Spine CT 11/30/17 0241 Signed Impressions: CONCLUSION: Degenerative disc change at the C5-6 level with posterior disc oste ophyte complex greatest in the right parasagittal region. There is mass effect on the anterior thecal sac and comes in close contact with the anterior cord wh ich is not well delineated. Head CT 11/30/17151 Signed Impressions: CONCLUSION: Chest X-Ray 11/30/17151 Signed Impressions: CONCLUSION: Caprini VTE Risk Assessment Caprini VTE Risk Assessment: Mod/High Risk (score >= 2) Caprini Risk Assessment Model Point Value = 1 Point Value = 2 Point Value = 3 Point Value = 5 Age 41-60 Minor surgery BMI > 25 kg/m2 Swollen legs Varicose veins or History of unexplained or recurrent spontaneous Oral contraceptives or hormone replacement Sepsis (< 1 month) Serious lung disease, including pneumonia (< 1 month) Abnormal pulmonary function Acute myocardial infarction Congestive heart failure (< 1 month) History of inflammatory bowel disease Medical patient at bed rest Age 61-74 Arthroscopic surgery Major open surgery (> 45 min) Laparoscopic surgery (> 45 min) Malignancy Confined to bed (> 72 hours) Immobilizing plaster cast Central venous access Age >= 75 History of VTE Family history of VTE Factor V Leiden Prothrombin [id number] Lupus anticoagulant Anticardiolipin antibodies Elevated serum homocysteine Heparin-induced thrombocytopenia Other congenital or acquired thrombophilia Stroke (< 1 month) Elective arthroplasty Hip, pelvis, or leg fracture Acute spinal cord injury (< 1 month) Prophylaxis Regimen Total Risk Factor Score Risk Level Prophylaxis Regimen 0-1 Low Early ambulation 2 Moderate Order ONE of the following: *Sequential Compression Device (SCD) *Heparin 5000 units SQ BID 3-4 Higher Order ONE of the following medications: *Heparin 5000 units SQ TID *Enoxaparin/Lovenox 40 mg SQ daily (WT < 150 kg, CrCl > 30 mL/min) *Enoxaparin/Lovenox 30 mg SQ daily (WT < 150 kg, CrCl > 10-29 mL/min) *Enoxaparin/Lovenox 30 mg SQ BID (WT < 150 kg, CrCl > 30 mL/min) AND/OR *Sequential Compression Device (SCD) 5 or more Highest Order ONE of the following medications: *Heparin 5000 units SQ TID (Preferred with Epidurals) *Enoxaparin/Lovenox 40 mg SQ daily (WT < 150 kg, CrCl > 30 mL/min) *Enoxaparin/Lovenox 30 mg SQ daily (WT < 150 kg, CrCl > 10-29 mL/min) *Enoxaparin/Lovenox 30 mg SQ BID (WT < 150 kg, CrCl > 30 mL/min) AND *Sequential Compression Device (SCD) Assessment and Plan Assessment and Plan 42-year-old female with a history of diabetes, CHF(unknown EF), hyperlipidemia, Hypertension, chronic back pain, and CAD presented to the ED with complaints of pain and weakness in her left arm that began yesterday morning. Left-sided weakness suspect due to degenerative disc change C5-C6 level, rule out CVA and MS Head CT reviewed and unremarkable Cervical spine CT reviewed and shows Degenerative disc change at the C5-6 level with posterior disc osteophyte complex greatest in the right parasagittal region. There is mass effect on the anterior thecal sac and comes in close contact with the anterior cord which is not well delineated. -Neuro checks -Brain MRI were ordered -Consult neurosurgery for recommendations -PT/OT -Pain management with PO Starkweather -ASA daily -Will consult neurology if needed once MRI is completed Angina, chronic, r/o ACS troponin .02 -Serial troponin -Cont home isosorbide Hyperglycemia in a type II diabetic Glucose 339 -Accu-Cheks with sliding scale insulin -Continue home Lantus -Diabetic diet Hypertension, chronic, currently uncontrolled, possibly due to pain -Resume home medications carvedilol, hydrochlorothiazide -Monitor vitals -PRNs if needed Chronic back pain -Resume home gabapentin CHF, chronic, unknown EF -Continue home entresto HLD, chronic -Resume home medication atorvastatin -Iipid profile ordered DVT prophylaxis: SCDs Discussed Condition With Patient and RN Zeynep Tesfaye November 30, 2017 04:00
[2017-11-30 04:16] LABS: BILIRUBIN, URINE NEG (NEG); BLOOD, URINE LARGE (NEG); GLUCOSE,URINE 1000 mg/dL (NEG); KETONE, URINE NEG (NEG); NITRITE,URINE NEG (NEG); SQUAMOUS EPITHELIAL CELL URINE 1 /hpf (0-5); URINE COLOR YELLOW (YELLW/STRAW); URINE LEUKOCYTE ESTERASE NEG (NEG)
[2017-11-30] MEDS ORDERED: DEXTROSE 50% IN WATER 50 ML VIAL(D50) IV PUSH PRN (04:45)
[2017-11-30] MEDS ORDERED: cloNIDine HCL 0.1 MG TAB PO ONE (04:45)
[2017-11-30] MEDS ORDERED: ACETAMINOPHEN/HYDROcodone 325 MG/5 MG TAB PO PRN (04:45)
[2017-11-30] MEDS ORDERED: GLUCAGON 1 MG/ML VIAL OTHER PRN (04:45)
[2017-11-30] MEDS: ISOSORBIDE MONONITRATE 30 MG CR TAB (IMDUR) PO SCH (06:48)
[2017-11-30] MEDS: ACETAMINOPHEN/HYDROcodone 325 MG/5 MG TAB PO PRN ×4 (06:48→22:09)
[2017-11-30 07:14] LABS: CHOLESTEROL/ HDL RATIO 5.94 RATIO; HDL CHOLESTEROL 32.3 MG/DL (40.0-60.0)
--- NOTE | 2017-11-30 08:54 | PD.CONS ---
History of Present Illness Service Neurosurgery Consult Requested By Emergency room Primary Care Physician Douglas Morales MD Diagnoses: History of Present Illness Ms. 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 The pain is a sharp radiating pain which goes from the fingers of the left hand up to the neck and shoulder. She does have a history of some chronic neck and back pain. Yesterday she felt that she may have had some weakness in the left leg. She also complains of numbness in the left hand, primarily the fourth and fifth digits. She is also had some weakness in the left lower extremity over the past couple of days with difficulty ambulating. She has not had any other chest pain or shortness of breath or palpitations. The patient has a history of diabetes and hypertension. Review of Systems Constitutional: DENIES: Fatigue, Fever, Chills, Dizziness Eyes: DENIES: Blurred vision, Diplopia Ears, nose, mouth, throat: DENIES: Vertigo Respiratory: DENIES: Shortness of breath Cardiovascular: DENIES: Chest pain, Palpitations Gastrointestinal: DENIES: Abdominal pain, Nausea Musculoskeletal: COMPLAINS OF: Joint pain, Muscle aches, Back pain, Neck pain Hematologic/lymphatic: DENIES: Bruising Neurologic: COMPLAINS OF: Abnormal gait, Headache, Localized weakness, Paresthesias Psychiatric: DENIES: Confusion Past Family Social History Allergies: Coded Allergies: No Known Allergies (Verified Allergy, Unknown, 11/30/17) Past Medical History Hypertension Coronary artery disease Diabetes Dyslipidemia Chronic low back pain Past Surgical History Reported Medications Reported Meds & Active Scripts Active Walker with Front Wheels (Device) 1 Mis Mis Ea .XX DIRECTED Isosorbide Mononitrate ER (Isosorbide Mononitrate) 30 Mg Sammie 30 Mg PO DAILY@ 07 MDD ONE 30 Days Urecholine (Bethanechol Chloride) 10 Mg Tab 10 Mg PO Q8HR Pantoprazole (Pantoprazole Sodium) 40 Mg Tab 40 Mg PO DAILY Carafate (Sucralfate) 1 Gm Tab 1 Gm PO ACHS Reported Lantus Inj (Insulin Glargine) 1,000 Unit/10 Ml Vial 10 Units SQ HS Lantus Inj (Insulin Glargine) 1,000 Unit/10 Ml Vial 25 Units SQ AC BREAKFAST Novolog Inj (Insulin Aspart) 1,000 Unit/10 Ml Vial 3 Units SQ TID Aspirin 81 Mg Chew 81 Mg CHEW DAILY Atorvastatin (Atorvastatin Calcium) 40 Mg Tab 40 Mg PO HS Flexeril (Cyclobenzaprine HCl) 10 Mg Tab 10 Mg PO TID Entresto (Sacubitril-Valsartan) 49-51 Mg Tab 1 Tab PO DAILY Carvedilol 25 Mg Tab 25 Mg BID Metformin (Metformin HCl) 500 Mg Tab 500 Mg PO BIDPC Gabapentin 300 Mg Cap 300 Mg PO TID Hydrochlorothiazide 25 Mg Tab 25 Mg PO DAILY Family History Her mother has diabetes Social History She smokes a half pack cigarettes a day Occasional alcohol Physical Exam Vital Signs Vital Signs Date Time Temp Pulse Resp B/P (MAP) Pulse Ox O2 Delivery O2 Flow Rate FiO2 11/30/17 06:45 97.5 75 20 164/92 (116) 100 11/30/17 06:04 84 18 170/91 (117) 95 11/30/17 02:41 84 18 192/84 (120) 99 Room Air 11/30/17 01:17 98.5 87 20 207/102 (137) 95 Room Air 11/30/17 01:00 99.1 94 18 238/130 (166) 99 Physical Exam General: Moderately obese lady who appears somewhat uncomfortable during the examination. Respirations: Clear, somewhat shallow. Cardiac: Regular without murmur. Abdomen: Soft, no tenderness. Extremities: Mild to moderate distal lower extremity edema. Posterior tibial pulses are not readily palpable. Feet are normal temperature to touch Skin: No significant skin lesion or rash Neurologic: Awake and alert Oriented X 3 Speech is clear Conversant and appropriate Follow simple commands well Answers questions appropriately Reasonable judgment and insight Recent and remote memory are intact No evidence of anxiety or depression Pupils are equal and reactive to accommodation. Extra-ocular movements, visual lane to confrontation, facial sensorimotor, tongue, palate, sternocleidomastoid testing, hearing to finger rub testing, and bilateral shoulder shrug are all intact. Sensation is intact to light touch in the right upper extremity and lower extremities with complaint of paresthesia and mild numbness to light touch primarily in the left forearm and hand, primarily fourth and fifth digits. Strength normal major flexion and extension groups in the right upper and lower extremities. She has approximately 4/5 left biceps with 3/5 left triceps and hand intrinsics , although she complains of some upper extremity pain with testing. Casa's absent bilaterally No ankle clonus Plantar responses absent bilateral Fine motor movements moderately impaired left versus right upper extremity Laboratory Laboratory Tests Test 11/30/17 01:54 11/30/17 03:45 11/30/17 06:06 White Blood Count 8.1 Red Blood Count 4.76 Hemoglobin 13.4 Hematocrit 41.1 Mean Corpuscular Volume 86.3 Mean Corpuscular Hemoglobin 28.1 Mean Corpuscular Hemoglobin Concent 32.5 Red Cell Distribution Width 13.0 Platelet Count 249 Mean Platelet Volume 9.5 Neutrophils (%) (Auto) 57.7 Lymphocytes (%) (Auto) 34.5 Monocytes (%) (Auto) 6.5 Eosinophils (%) (Auto) 1.1 Basophils (%) (Auto) 0.2 Neutrophils # (Auto) 4.7 Lymphocytes # (Auto) 2.8 Monocytes # (Auto) 0.5 Eosinophils # (Auto) 0.1 Basophils # (Auto) 0.0 CBC Comment DIFF FINAL Differential Comment Prothrombin Time 9.7 Prothromb Time International Ratio 1.0 Activated Partial Thromboplast Time 27.0 Blood Urea Nitrogen 10 Creatinine 0.85 Random Glucose 339 Total Protein 7.6 Albumin 3.4 Calcium Level 8.5 Magnesium Level 2.0 Alkaline Phosphatase 77 Aspartate Amino Transf (AST/SGOT) 13 Alanine Aminotransferase (ALT/SGPT) 18 Total Bilirubin 0.4 Sodium Level 135 Potassium Level 4.3 Chloride Level 100 Carbon Dioxide Level 27.7 Anion Gap 7 Estimat Glomerular Filtration Rate 90 Troponin I LESS THAN 0.02 Lipase 73 Ethyl Alcohol Level LESS THAN 3 Urine Color YELLOW Urine Turbidity CLEAR Urine pH 6.0 Urine Specific Wylie 1.024 Urine Protein NEG Urine Glucose (UA) 1000 Urine Ketones NEG Urine Occult Blood LARGE Urine Nitrite NEG Urine Bilirubin NEG Urine Urobilinogen LESS THAN 2.0 Urine Leukocyte Esterase NEG Urine RBC 28 Urine WBC 1 Urine Squamous Epithelial Cells 1 Microscopic Urinalysis Comment CULT NOT INDICATED Urine Opiates Screen NEG Urine Barbiturates Screen NEG Urine Amphetamines Screen NEG Urine Benzodiazepines Screen NEG Urine Cocaine Screen NEG Urine Cannabinoids Screen POS Triglycerides Level 119 Cholesterol Level 192 LDL Cholesterol 136 HDL Cholesterol 32.3 Cholesterol/HDL Ratio 5.94 Result Diagram: 11/30/17 0154 11/30/17 0154 Imaging 11/30/2017 CT scan cervical spine images are reviewed. The study reveals rather severe C5-6 degenerative disc disease with a prominent posterior osteophytic disc complex. AP thecal sac dimension at the C5-6 level is not greater than 6 mm. There appears to be mild to moderate bilateral foraminal stenosis. No other significant abnormalities noted in the cervical spine. Cervical Spine CT 11/30/17 0241 Signed Impressions: CONCLUSION: Degenerative disc change at the C5-6 level with posterior disc oste ophyte complex greatest in the right parasagittal region. There is mass effect on the anterior thecal sac and comes in close contact with the anterior cord wh ich is not well delineated. Head CT 11/30/17 015 Signed Impressions: CONCLUSION: Chest X-Ray 11/30/17151 Signed Impressions: CONCLUSION: Assessment and Plan Assessment and Plan Impression: 1. C5-6 degenerative disc disease with at least moderate posterior osteophytic disc complex with significant spinal canal compromise. 2. Left cervical radiculopathy 3. Diabetes 4. Hypertension Plan: Findings and initial plan extensively discussed with the patient. Request MRI cervical spine for better determination of the degree of spinal cord and nerve compression. OT and PT. Karri Alcantara MD November 30, 2017 08:54
[2017-11-30] MEDS: SODIUM CHLORIDE 0.9% FLUSH 10 ML FLUSH IV FLUSH SCH ×2 (09:00→20:58)
[2017-11-30] MEDS ORDERED: SACUBITRIL/VALSARTAN 49 MG-51 MG TAB PO SCH ×2 (09:00→12:00)
[2017-11-30] MEDS: PANTOPRAZOLE SOD 40 MG DELAYED RELEASE TAB PO SCH (09:45)
[2017-11-30] MEDS: CARVEDILOL 12.5 MG TAB PO SCH ×2 (09:45→20:58)
[2017-11-30] MEDS: SUCRALFATE 1 GM TAB PO SCH ×4 (09:45→20:58)
[2017-11-30] MEDS: ASPIRIN 81 MG CHEW TAB CHEW SCH (09:45)
[2017-11-30] MEDS: HYDROCHLOROTHIAZIDE 25 MG TAB PO SCH (09:46)
[2017-11-30] MEDS: BETHANECHOL CHL 10 MG TAB PO SCH ×3 (09:46→20:59)
[2017-11-30] MEDS: GABAPENTIN 300 MG CAP PO SCH ×3 (09:46→18:06)
[2017-11-30] MEDS: INSULIN DETEMIR 100 UNITS/ML VIAL SQ SCH ×2 (10:14→20:58)
[2017-11-30] MEDS: INSULIN ASPART SUPPLEMENTAL SCALE SQ SCH ×4 (10:15→20:57)
--- NOTE | 2017-11-30 12:35 | RADRPT ---
EXAM DATE: 11/30/2017 12:26 PM EDT AGE/SEX: 42 years / Female INDICATIONS: . Left arm weakness with pain. CLINICAL DATA: This is the patient's subsequent encounter. Patient reports that signs and symptoms h ave been present for 2 days and indicates a pain score of 5/10. MEDICAL/SURGICAL HISTORY: Hypertension. Diabetes mellitus type II. Congestive heart failure. section. COMPARISON: No prior exams available for comparison. TECHNIQUE: Multiplanar, multisequence examination of the brain was performed without contrast. FINDINGS: No intracranial mass, hemorrhage or shift. No hydrocephalus. No evidence for recent infarction. No abnormal extra-axial fluid collections are present. No sellar mass. No sinus opacification. There is some mucosal thickening in the right mastoids. CONCLUSION: 1. No acute intracranial abnormalities. Specifically no recent infarction. Mucosal thickening right mastoid air cells. Electronically signed by: Kenn Caraballo MD 11/30/2017 12:34 PM EDT
--- NOTE | 2017-11-30 13:20 | RADRPT ---
EXAM DATE: 11/30/2017 1:05 PM EDT AGE/SEX: 42 years / Female INDICATIONS: . Left arm weakness with pain. CLINICAL DATA: This is the patient's subsequent encounter. Patient reports that signs and symptoms h ave been present for 2 days and indicates a pain score of 5/10. MEDICAL/SURGICAL HISTORY: Hypertension. Diabetes mellitus type II. Congestive heart failure. section. [place] [facility] [place]/30/2017. . TECHNIQUE: Multiplanar, multisequence MRI examination of the cervical spine was performed without co ntrast. FINDINGS: Vertebrae: Normal vertebral body height. Homogeneous marrow signal. Alignment: Normal. Cord: Normal configuration and signal. Post Fossa: The cerebellar tonsils are normal in position. C2-C3: The thecal sac has a normal configuration. There is no evidence of disc herniation or spinal canal stenosis. The neural foramina are patent bilaterally. C3-C4: The thecal sac has a normal configuration. There is no evidence of disc herniation or spinal canal stenosis. The neural foramina are patent bilaterally. C4-C5: The thecal sac has a normal configuration. There is no evidence of disc herniation or spinal canal stenosis. The neural foramina are patent bilaterally. C5-C6: There is a moderate right lateral recess disc protrusion and osteophytic ridging abutting the anterior right side of the cord. There is moderate narrowing of the thecal sac with a thin layer of CSF seen around the cord at this level. The neural foramina are patent bilaterally. C6-C7: The thecal sac has a normal configuration. There is no evidence of disc herniation or spinal canal stenosis. The neural foramina are patent bilaterally. C7-T1: No epidural impressions seen. CONCLUSION: Moderate right lateral recess disc protrusion at the C5-C6 level with osteophytic ridging. Electronically signed by: Douglas Fischer MD 11/30/2017 1:19 PM EDT
--- NOTE | 2017-11-30 14:41 | EKG ---
Date Performed: 11/30/2017 Time Performed: 02:08:29 PTAGE: 42 years EKG: Sinus rhythm POSSIBLE LEFT ATRIAL ENLARGEMENT NONSPECIFIC T-WAVE ABNORMALITY BORDERLINE ECG [facility] EKG has artifa ct. DOCTOR: Jamarcus Terry Interpretating Date/Time 11/30/2017 14:40:10
[2017-11-30] MEDS: SACUBITRIL/VALSARTAN 97 MG-103 MG TAB PO SCH (20:58)
[2017-11-30] MEDS: ATORVASTATIN 40 MG TAB PO SCH (20:58)
[2017-12-01] VITALS (10 sets, daily range): BP systolic 158–185; BP diastolic 76–98; PULSE 73–87; RESP 16–20; TEMP 97.5–98.7; O2SAT 93–98
[2017-12-01] MEDS: SODIUM CHLOR 0.9% 1000 ML INJ 1,000 ML IV SCH ×2 (04:16→21:22)
[2017-12-01] MEDS: ACETAMINOPHEN/HYDROcodone 325 MG/5 MG TAB PO PRN ×2 (04:49→09:14)
[2017-12-01] MEDS: ISOSORBIDE MONONITRATE 30 MG CR TAB (IMDUR) PO SCH (06:26)
[2017-12-01] MEDS: BETHANECHOL CHL 10 MG TAB PO SCH ×3 (06:27→21:23)
[2017-12-01] MEDS: SODIUM CHLORIDE 0.9% FLUSH 10 ML FLUSH IV FLUSH SCH ×2 (09:00→21:22)
[2017-12-01] MEDS: HYDROCHLOROTHIAZIDE 25 MG TAB PO SCH (09:14)
[2017-12-01] MEDS: PANTOPRAZOLE SOD 40 MG DELAYED RELEASE TAB PO SCH (09:14)
[2017-12-01] MEDS: CARVEDILOL 12.5 MG TAB PO SCH ×2 (09:15→21:23)
[2017-12-01] MEDS: GABAPENTIN 300 MG CAP PO SCH ×3 (09:15→18:24)
[2017-12-01] MEDS: SUCRALFATE 1 GM TAB PO SCH ×4 (09:15→21:22)
[2017-12-01] MEDS: ASPIRIN 81 MG CHEW TAB CHEW SCH (09:16)
[2017-12-01] MEDS: SACUBITRIL/VALSARTAN 97 MG-103 MG TAB PO SCH ×2 (09:16→21:23)
[2017-12-01] MEDS: INSULIN ASPART SUPPLEMENTAL SCALE SQ SCH ×4 (09:17→21:26)
[2017-12-01] MEDS: INSULIN DETEMIR 100 UNITS/ML VIAL SQ SCH ×2 (09:17→21:27)
--- NOTE | 2017-12-01 11:17 | HHI.NSPN ---
(Quang Lanier) History Chief Complaint: Pain to the left neck into the shoulder and down the arm. (Quang Lanier) Interval History 11/30: Ms. 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 The pain is a sharp radiating pain which goes from the fingers of the left hand up to the neck and shoulder. She does have a history of some chronic neck and back pain. Yesterday she felt that she may have had some weakness in the left leg. She has not had any other chest pain or shortness of breath or palpitations. The patient has a history of diabetes and hypertension. 12/01: The patient is awake in the chair when seen this morning. She is talking on her cellphone. She did have a headache earlier but none at present and she denied any dizziness. She complains of pain from the left lateral neck into the left shoulder going down into the left upper extremity to just below the elbow. She also says she has numbness to all extremities with the left side being worse. She reports left-sided weakness. Upon examination the has numbness to all extremities, worse on the left. She has left-sided muscle weakness. And she has tenderness to palpation of the left lateral neck, left shoulder and left upper extremity. She is forgetful of what she wants to say at times. (Quang Lanier) Exam Results 11/29/17 11/29/17 11/30/17 11/30/17 12/01/17 12/01/17 06:00 18:00 06:00 18:00 06:00 18:00 Intake Total 480 ml Balance 480 ml Intake Oral 480 ml # Voids 3 2 Vital Signs Date Time Temp Pulse Resp B/P (MAP) Pulse Ox O2 Delivery O2 Flow Rate FiO2 12/01/17 08:00 97.6 73 16 183/98 (126) 93 12/01/17 05:23 98.1 78 20 185/94 (124) 94 12/01/17 04:06 77 12/01/17 00:07 97.6 78 20 168/76 (106) 98 12/01/17 00:02 81 11/30/17 21:04 97.8 75 18 188/92 (124) 98 11/30/17 20:00 73 11/30/17 16:00 97.7 72 18 165/79 (107) 100 11/30/17 15:45 72 11/30/17 13:00 98.1 77 18 181/103 (129) 98 11/30/17 12:00 97.4 76 22 133/62 (85) 98 11/30/17 11:45 74 11/30/17 08:00 97.8 77 16 193/90 (124) 98 11/30/17 06:45 97.5 75 20 164/92 (116) 100 11/30/17 06:04 84 18 170/91 (117) 95 11/30/17 02:41 84 18 192/84 (120) 99 Room Air 11/30/17 01:17 98.5 87 20 207/102 (137) 95 Room Air 11/30/17 01:00 99.1 94 18 238/130 (166) 99 (Quang Lanier) Physical Examination GENERAL: Awake in chair talking on telephone. Affect fairly normal. Readily interacts. No apparent distress. HEENT: Normocephalic, atraumatic. PERRLA 2 mm, EOMI. MMM & pink, tongue midline to protrusion. NECK: Midline cervical spine TTP. Left lateral neck TTP down to left shoulder. No JVD. Trachea midline. MUSCULOSKELETAL: [place] spontaneously & purposefully, decreased on left side. Left shoulder & UE TTP. NEUROLOGICAL: AAOx3. Speech clear but slow, forgetful of what she wants to say. Follows commands w/o difficulty. CN II through XII grossly intact. PERRLA 2 mm, EOMI. Tongue midline to protrusion. Sensation decreased to all extremities, left side worse than right. RUE numbness lessens distally. Motor strength: LUE: Deltoid 3 to 3+/5, biceps 3 to 3+/5, triceps 3/5, wrist flexors & extensors 3+/5, hand intrinsics & extrinsics 3/5. RUE: Deltoid 4+ to 5/5, biceps 5/5, triceps 4+ to 5/5, wrist flexors & extensors 5/5, hand intrinsics & extrinsics 4 to 4+/5. LLE: Iliopsoas 4 to 4+/5, quadriceps 4/5, hamstring 4/5, tibialis anterior 3 to 3+/5, gastrosoleus 3+/5, extensor hallucis longus 3/5. RLE: Iliopsoas 5/5, quadriceps 5/5, hamstring 4+ to 5/5, tibialis anterior 4 + to 5/5, gastrosoleus 5/5, extensor hallucis longus 4+/5. (Quang Lanier) Lab, Micro, Other Results Recent Impressions Cervical Spine CT 11/30/17 0241 Signed Impressions: CONCLUSION: Degenerative disc change at the C5-6 level with posterior disc oste ophyte complex greatest in the right parasagittal region. There is mass effect on the anterior thecal sac and comes in close contact with the anterior cord wh ich is not well delineated. Head CT 11/30/17 015 Signed Impressions: CONCLUSION: 1. Stable unremarkable noncontrast head CT. Chest X-Ray 11/30/17151 Signed Impressions: CONCLUSION: No acute cardiopulmonary disease. There is no evidence of pneumonia. Cervical Spine MRI 11/30/17 0000 Signed Impressions: CONCLUSION: Moderate right lateral recess disc protrusion at the C5-C6 level with osteophyt ic ridging. Brain MRI 11/30/17 0000 Signed Impressions: CONCLUSION: 1. No acute intracranial abnormalities. Specifically no recent infarction. Muc osal thickening right mastoid air cells. Laboratory Tests Test 11/30/17 01:54 11/30/17 03:45 11/30/17 06:06 11/30/17 10:16 White Blood Count 8.1 TH/MM3 Red Blood Count 4.76 MIL/MM3 Hemoglobin 13.4 GM/DL Hematocrit 41.1 % Mean Corpuscular Volume 86.3 FL Mean Corpuscular Hemoglobin 28.1 PG Mean Corpuscular Hemoglobin Concent 32.5 % Red Cell Distribution Width 13.0 % Platelet Count 249 TH/MM3 Mean Platelet Volume 9.5 FL Neutrophils (%) (Auto) 57.7 % Lymphocytes (%) (Auto) 34.5 % Monocytes (%) (Auto) 6.5 % Eosinophils (%) (Auto) 1.1 % Basophils (%) (Auto) 0.2 % Neutrophils # (Auto) 4.7 TH/MM3 Lymphocytes # (Auto) 2.8 TH/MM3 Monocytes # (Auto) 0.5 TH/MM3 Eosinophils # (Auto) 0.1 TH/MM3 Basophils # (Auto) 0.0 TH/MM3 CBC Comment DIFF FINAL Differential Comment Prothrombin Time 9.7 SEC Prothromb Time International Ratio 1.0 RATIO Activated Partial Thromboplast Time 27.0 SEC Blood Urea Nitrogen 10 MG/DL Creatinine 0.85 MG/DL Random Glucose 339 MG/DL Total Protein 7.6 GM/DL Albumin 3.4 GM/DL Calcium Level 8.5 MG/DL Magnesium Level 2.0 MG/DL Alkaline Phosphatase 77 U/L Aspartate Amino Transf (AST/SGOT) 13 U/L Alanine Aminotransferase (ALT/SGPT) 18 U/L Total Bilirubin 0.4 MG/DL Sodium Level 135 MEQ/L Potassium Level 4.3 MEQ/L Chloride Level 100 MEQ/L Carbon Dioxide Level 27.7 MEQ/L Anion Gap 7 MEQ/L Estimat Glomerular Filtration Rate 90 ML/MIN Troponin I LESS THAN 0.02 NG/ML LESS THAN 0.02 NG/ML Lipase 73 U/L Ethyl Alcohol Level LESS THAN 3 MG/DL Urine Color YELLOW Urine Turbidity CLEAR Urine pH 6.0 Urine Specific [place] 1.024 Urine Protein NEG mg/dL Urine Glucose (UA) 1000 mg/dL Urine Ketones NEG mg/dL Urine Occult Blood LARGE Urine Nitrite NEG Urine Bilirubin NEG Urine Urobilinogen LESS THAN 2.0 MG/DL Urine Leukocyte Esterase NEG Urine RBC 28 /hpf Urine WBC 1 /hpf Urine Squamous Epithelial Cells 1 /hpf Microscopic Urinalysis Comment CULT NOT INDICATED Urine Opiates Screen NEG Urine Barbiturates Screen NEG Urine Amphetamines Screen NEG Urine Benzodiazepines Screen NEG Urine Cocaine Screen NEG Urine Cannabinoids Screen POS Triglycerides Level 119 MG/DL Cholesterol Level 192 MG/DL LDL Cholesterol 136 MG/DL HDL Cholesterol 32.3 MG/DL Cholesterol/HDL Ratio 5.94 RATIO Test 11/30/17 15:22 Troponin I LESS THAN 0.02 NG/ML (Quang Lanier) Medical Decision Making Impression and Plan Impression: 1. C5-6 degenerative disc disease with at least moderate posterior osteophytic disc complex with significant spinal canal compromise. 2. Left cervical radiculopathy 3. Diabetes 4. Hypertension The patient appears to be stable neurologically when seen w/persistent left- sided symptoms as well as right-sided numbness. Afebrile the past 24 hrs. Hypertensive. MRI brain demonstrated no acute intracranial abnormalities. MRI cervical spine demonstrated moderate right lateral recess disc protrusion at the C5-6 level w/osteophyte ridging. Plan: Primary management per Hospitalist. Mobilise patient w/assistance as needed. Physical & Occupational Therapy eval & tx. (Quang Lanier) Attending Statement The exam, history, and the medical decision-making described in the above note were completed with the assistance of the mid-level provider. I reviewed and agree with the findings presented. I attest that I had a [id number] encounter with the patient on the same day, and personally performed and documented my assessment and findings in the medical record. Cervical MRI images reviewed with the patient. There is significant cervical degenerative disc disease with posterior osteophytic disc complex compressing the cord. Positive increased central cord signal intensity on axial images. Patient's examination today reveals persistent somewhat diffuse numbness distal left upper extremity, weakness primarily hand intrinsics. Findings were discussed with the patient. There is concern for persistent or progressive myelopathy given the degree of cord compression. Also risk of spinal cord contusion in the event of significant neck trauma. Options of conservative treatment versus surgical intervention discussed at length with the patient. The surgical procedure of ACDF explained, along with risks and possible complications and prognosis. Numerous questions answered She will discuss with her family and let us know how she wishes to proceed. (Karri Alcantara MD) Quang Lanier December 01, 2017 11:17 Karri Alcantara MD December 01, 2017 18:03
--- NOTE | 2017-12-01 11:26 | HHI.PR ---
Subjective Remarks Continues to have left arm weakness and tingling. Patient states she is agreeable to having surgery but wants more information about the risk of the procedure. Objective Vitals Vital Signs Date Time Temp Pulse Resp B/P (MAP) Pulse Ox O2 Delivery O2 Flow Rate FiO2 12/01/17 08:00 97.6 73 16 183/98 (126) 93 12/01/17 05:23 98.1 78 20 185/94 (124) 94 12/01/17 04:06 77 12/01/17 00:07 97.6 78 20 168/76 (106) 98 12/01/17 00:02 81 11/30/17 21:04 97.8 75 18 188/92 (124) 98 11/30/17 20:00 73 11/30/17 16:00 97.7 72 18 165/79 (107) 100 11/30/17 15:45 72 11/30/17 13:00 98.1 77 18 181/103 (129) 98 11/30/17 12:00 97.4 76 22 133/62 (85) 98 11/30/17 11:45 74 I/O 11/30/17 11/30/17 11/30/17 12/01/17 12/01/17 12/01/17 07:00 15:00 23:00 07:00 15:00 23:00 Intake Total 480 ml Balance 480 ml Intake Oral 480 ml # Voids 4 1 Result Diagram: 11/30/17 0154 11/30/17 0154 Imaging Last Impressions Cervical Spine CT 11/30/17 0241 Signed Impressions: CONCLUSION: Degenerative disc change at the C5-6 level with posterior disc oste ophyte complex greatest in the right parasagittal region. There is mass effect on the anterior thecal sac and comes in close contact with the anterior cord wh ich is not well delineated. Head CT 11/30/17151 Signed Impressions: CONCLUSION: 1. Stable unremarkable noncontrast head CT. Chest X-Ray 11/30/17151 Signed Impressions: CONCLUSION: No acute cardiopulmonary disease. There is no evidence of pneumonia. Cervical Spine MRI 11/30/17 0000 Signed Impressions: CONCLUSION: Moderate right lateral recess disc protrusion at the C5-C6 level with osteophyt ic ridging. Brain MRI 11/30/17 0000 Signed Impressions: CONCLUSION: 1. No acute intracranial abnormalities. Specifically no recent infarction. Muc osal thickening right mastoid air cells. Objective Remarks GENERAL: This is a well-nourished, well-developed patient, in no apparent distress. CARDIOVASCULAR: Normal rate and regular rhythm without murmurs, gallops, or rubs. RESPIRATORY: Good respiratory efforts. Breath sounds equal and clear to auscultation bilaterally. GASTROINTESTINAL: Abdomen soft, non-tender, non-distended. Normal active bowel sounds MUSCULOSKELETAL: Extremities without cyanosis, or edema. NEURO: Alert & Oriented x4 to person, place, time, situation. Left upper extremity with 4 out of 5 strength compared to 5 out of 5 in the rest of the extremities. Patient endorse numbness on the left upper extremity. PSYCH: Appropriate mood and affect. A/P Assessment and Plan 42-year-old female with a history of diabetes, CHF(unknown EF), hyperlipidemia, Hypertension, chronic back pain, and CAD presented to the ED with complaints of pain and acute weakness involving the left arm Left-upper extremity weakness secondary to C5-C6 degenerative disease causing mass-effect. -Appreciate neurosurgery following. Per the patient she was given the option for surgery which she wants to proceed with by has more questions for neurosurgery. -PT/OT -Pain management with PO [place] Angina, chronic, ACS ruled out -Cont home isosorbide Type 2 diabetes -Accu-Cheks with sliding scale insulin -Continue home Lantus -Diabetic diet Hypertension, chronic, currently uncontrolled, possibly due to pain -Continue home medications carvedilol, hydrochlorothiazide -Monitor vitals -PRNs if needed Chronic back pain -Resume home gabapentin CHF, chronic, unknown EF -Continue home dose entresto - Clonidine PRN HLD, chronic -Resume home medication atorvastatin -Iipid profile ordered DVT prophylaxis: Aubrie Ospina MD December 01, 2017 11:26
[2017-12-01] MEDS: ONDANSETRON ODT 4 MG TAB PO PRN ×2 (12:19→18:19)
[2017-12-01] MEDS ORDERED: cloNIDine HCL 0.1 MG TAB PO PRN (15:15)
[2017-12-01] MEDS ORDERED: PROCHLORPERAZINE INJ 10 MG/2 ML VIAL IV PUSH PRN (19:45)
[2017-12-01] MEDS: ATORVASTATIN 40 MG TAB PO SCH (21:23)
[2017-12-02 00:30] VITALS: BP 156/98; PULSE 89; RESP 20; TEMP 97.9; O2SAT 96
[2017-12-02 05:30] VITALS: BP 150/69; PULSE 88; RESP 20; TEMP 98.2; O2SAT 96
[2017-12-02] MEDS: SUCRALFATE 1 GM TAB PO SCH ×4 (06:41→20:48)
[2017-12-02] MEDS: oxyCODONE/ACETAMINOPHEN 5 MG/325 MG TAB PO PRN ×2 (06:41→18:36)
[2017-12-02] MEDS: ISOSORBIDE MONONITRATE 30 MG CR TAB (IMDUR) PO SCH (06:41)
[2017-12-02] MEDS: BETHANECHOL CHL 10 MG TAB PO SCH ×3 (06:45→20:47)
[2017-12-02 08:00] VITALS: BP 160/79; PULSE 81; RESP 20; TEMP 98.4; O2SAT 98
[2017-12-02] MEDS: INSULIN DETEMIR 100 UNITS/ML VIAL SQ SCH ×2 (08:00→22:35)
[2017-12-02] MEDS: PANTOPRAZOLE SOD 40 MG DELAYED RELEASE TAB PO SCH ×2 (09:00→09:28)
[2017-12-02] MEDS: SODIUM CHLORIDE 0.9% FLUSH 10 ML FLUSH IV FLUSH SCH ×2 (09:00→20:48)
[2017-12-02] MEDS: INSULIN ASPART SUPPLEMENTAL SCALE SQ SCH ×4 (09:26→22:36)
[2017-12-02] MEDS: GABAPENTIN 300 MG CAP PO SCH ×3 (09:26→18:38)
[2017-12-02] MEDS: HYDROCHLOROTHIAZIDE 25 MG TAB PO SCH (09:27)
[2017-12-02] MEDS: CARVEDILOL 12.5 MG TAB PO SCH ×2 (09:27→20:47)
[2017-12-02] MEDS: ASPIRIN 81 MG CHEW TAB CHEW SCH (09:28)
[2017-12-02] MEDS: SACUBITRIL/VALSARTAN 97 MG-103 MG TAB PO SCH ×2 (09:36→20:46)
--- NOTE | 2017-12-02 10:10 | HHI.NSPN ---
(Quang Lanier) History Chief Complaint: Symptoms feel "The same." (YolandeQuangvictor manuel DELATORRE) Interval History 11/30: Ms. 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 The pain is a sharp radiating pain which goes from the fingers of the left hand up to the neck and shoulder. She does have a history of some chronic neck and back pain. Yesterday she felt that she may have had some weakness in the left leg. She has not had any other chest pain or shortness of breath or palpitations. The patient has a history of diabetes and hypertension. 12/01: The patient is awake in the chair when seen this morning. She is talking on her cellphone. She did have a headache earlier but none at present and she denied any dizziness. She complains of pain from the left lateral neck into the left shoulder going down into the left upper extremity to just below the elbow. She also says she has numbness to all extremities with the left side being worse. She reports left-sided weakness. Upon examination the has numbness to all extremities, worse on the left. She has left-sided muscle weakness. And she has tenderness to palpation of the left lateral neck, left shoulder and left upper extremity. She is forgetful of what she wants to say at times. 12/02: This morning the patient was awake and sitting up in bed tapping on her cellphone. When asked how her neck was this morning she replied "The same." Her affect was quite flat and she was reluctant to respond to questions. She stated that she was "ready to go home." She interacted only after being coaxed and only to a degree. She did complain of low back pain when her muscle strength was tested to the lower extremities. She had decreased muscle strength which was felt to be related to her lack of cooperation in being evaluated. As this practitioner was leaving the room she said something which was not heard. When asked what she said she replied, with what was felt to be disgust, "I'm not talkin' to you." (Quang Lanier) Exam Results 11/30/17 11/30/17 12/01/17 12/01/17 12/02/17 12/02/17 05:59 17:59 05:59 17:59 05:59 17:59 Intake Total 480 ml 2350 ml 120 ml Balance 480 ml 2350 ml 120 ml Intake Oral 480 ml 1550 ml 120 ml IV Total 800 ml # Voids 5 5 # Bowel Movements 0 Vital Signs Date Time Temp Pulse Resp B/P (MAP) Pulse Ox O2 Delivery O2 Flow Rate FiO2 12/02/17 08:00 98.4 81 20 160/79 (106) 98 12/02/17 05:30 98.2 88 20 150/69 (96) 96 12/02/17 03:13 18 12/02/17 00:30 97.9 89 20 156/98 (117) 96 12/01/17 20:45 98.7 87 19 169/80 (109) 97 12/01/17 20:00 87 12/01/17 16:00 97.6 87 16 158/88 (111) 97 12/01/17 13:52 75 12/01/17 13:52 77 12/01/17 12:00 97.5 77 16 183/96 (125) 96 12/01/17 08:00 97.6 73 16 183/98 (126) 93 12/01/17 05:23 98.1 78 20 185/94 (124) 94 12/01/17 04:06 77 12/01/17 00:07 97.6 78 20 168/76 (106) 98 12/01/17 00:02 81 11/30/17 21:04 97.8 75 18 188/92 (124) 98 11/30/17 20:00 73 11/30/17 16:00 97.7 72 18 165/79 (107) 100 11/30/17 15:45 72 11/30/17 13:00 98.1 77 18 181/103 (129) 98 11/30/17 12:00 97.4 76 22 133/62 (85) 98 11/30/17 11:45 74 11/30/17 08:00 97.8 77 16 193/90 (124) 98 11/30/17 06:45 97.5 75 20 164/92 (116) 100 11/30/17 06:04 84 18 170/91 (117) 95 11/30/17 02:41 84 18 192/84 (120) 99 Room Air 11/30/17 01:17 98.5 87 20 207/102 (137) 95 Room Air 11/30/17 01:00 99.1 94 18 238/130 (166) 99 (Quang Lanier) Physical Examination GENERAL: Awake & sitting up in bed tapping on her cellphone. Affect flat. Resistant to being evaluated & interacts to a degree only w/coaxing. No apparent distress. HEENT: Normocephalic, atraumatic. NECK: Midline cervical spine TTP. Left lateral neck TTP down to left shoulder. No JVD. Trachea midline. MUSCULOSKELETAL: [place] spontaneously & purposefully. Left shoulder & UE TTP. NEUROLOGICAL: AAOx3. Speech clear but slow. Follows commands reluctantly and only with coaxing. Sensation decreased to all extremities, left side worse than right. RUE numbness lessens distally. Motor strength: LUE: Deltoid 3/5, biceps 3/5, triceps 3/5 RUE: Deltoid 4+5/5, biceps 4+/5, triceps 4 to 4+/5. LLE: Iliopsoas 3+/5, quadriceps 2+/5, hamstring 3+/5, tibialis anterior 3 to 3+/5, gastrosoleus 3+/5, extensor hallucis longus 3/5. RLE: Iliopsoas 4 to 4+/5, quadriceps 4+/5, hamstring 4+/5, tibialis anterior 4 to 4+/5, gastrosoleus 4+/5, extensor hallucis longus 4+/5. The patient is quite reluctant to participate in being evaluated and was resistant to having her motor strength examined and partially cooperated after coaxing. (Quang Lanier) Lab, Micro, Other Results Recent Impressions Cervical Spine CT 11/30/17 0241 Signed Impressions: CONCLUSION: Degenerative disc change at the C5-6 level with posterior disc oste ophyte complex greatest in the right parasagittal region. There is mass effect on the anterior thecal sac and comes in close contact with the anterior cord wh ich is not well delineated. Head CT 11/30/17151 Signed Impressions: CONCLUSION: 1. Stable unremarkable noncontrast head CT. Chest X-Ray 11/30/17151 Signed Impressions: CONCLUSION: No acute cardiopulmonary disease. There is no evidence of pneumonia. Cervical Spine MRI 11/30/17 0000 Signed Impressions: CONCLUSION: Moderate right lateral recess disc protrusion at the C5-C6 level with osteophyt ic ridging. Brain MRI 11/30/17 0000 Signed Impressions: CONCLUSION: 1. No acute intracranial abnormalities. Specifically no recent infarction. Muc osal thickening right mastoid air cells. Laboratory Tests Test 11/30/17 01:54 11/30/17 03:45 11/30/17 06:06 11/30/17 10:16 White Blood Count 8.1 TH/MM3 Red Blood Count 4.76 MIL/MM3 Hemoglobin 13.4 GM/DL Hematocrit 41.1 % Mean Corpuscular Volume 86.3 FL Mean Corpuscular Hemoglobin 28.1 PG Mean Corpuscular Hemoglobin Concent 32.5 % Red Cell Distribution Width 13.0 % Platelet Count 249 TH/MM3 Mean Platelet Volume 9.5 FL Neutrophils (%) (Auto) 57.7 % Lymphocytes (%) (Auto) 34.5 % Monocytes (%) (Auto) 6.5 % Eosinophils (%) (Auto) 1.1 % Basophils (%) (Auto) 0.2 % Neutrophils # (Auto) 4.7 TH/MM3 Lymphocytes # (Auto) 2.8 TH/MM3 Monocytes # (Auto) 0.5 TH/MM3 Eosinophils # (Auto) 0.1 TH/MM3 Basophils # (Auto) 0.0 TH/MM3 CBC Comment DIFF FINAL Differential Comment Prothrombin Time 9.7 SEC Prothromb Time International Ratio 1.0 RATIO Activated Partial Thromboplast Time 27.0 SEC Blood Urea Nitrogen 10 MG/DL Creatinine 0.85 MG/DL Random Glucose 339 MG/DL Total Protein 7.6 GM/DL Albumin 3.4 GM/DL Calcium Level 8.5 MG/DL Magnesium Level 2.0 MG/DL Alkaline Phosphatase 77 U/L Aspartate Amino Transf (AST/SGOT) 13 U/L Alanine Aminotransferase (ALT/SGPT) 18 U/L Total Bilirubin 0.4 MG/DL Sodium Level 135 MEQ/L Potassium Level 4.3 MEQ/L Chloride Level 100 MEQ/L Carbon Dioxide Level 27.7 MEQ/L Anion Gap 7 MEQ/L Estimat Glomerular Filtration Rate 90 ML/MIN Troponin I LESS THAN 0.02 NG/ML LESS THAN 0.02 NG/ML Lipase 73 U/L Ethyl Alcohol Level LESS THAN 3 MG/DL Urine Color YELLOW Urine Turbidity CLEAR Urine pH 6.0 Urine Specific [place] 1.024 Urine Protein NEG mg/dL Urine Glucose (UA) 1000 mg/dL Urine Ketones NEG mg/dL Urine Occult Blood LARGE Urine Nitrite NEG Urine Bilirubin NEG Urine Urobilinogen LESS THAN 2.0 MG/DL Urine Leukocyte Esterase NEG Urine RBC 28 /hpf Urine WBC 1 /hpf Urine Squamous Epithelial Cells 1 /hpf Microscopic Urinalysis Comment CULT NOT INDICATED Urine Opiates Screen NEG Urine Barbiturates Screen NEG Urine Amphetamines Screen NEG Urine Benzodiazepines Screen NEG Urine Cocaine Screen NEG Urine Cannabinoids Screen POS Triglycerides Level 119 MG/DL Cholesterol Level 192 MG/DL LDL Cholesterol 136 MG/DL HDL Cholesterol 32.3 MG/DL Cholesterol/HDL Ratio 5.94 RATIO Test 11/30/17 15:22 Troponin I LESS THAN 0.02 NG/ML (Quang Lanier) Medical Decision Making Impression and Plan Impression: 1. C5-6 degenerative disc disease with at least moderate posterior osteophytic disc complex with significant spinal canal compromise. 2. Left cervical radiculopathy 3. Diabetes 4. Hypertension There is concern for persistent or progressive myelopathy given the degree of cord compression. Also risk of spinal cord contusion in the event of significant neck trauma. The patient is resistant to evaluation and demonstrated decreased muscle strength which is felt to be related to her resistance and noncooperation. Afebrile the past 24 hrs. Intermittently hypertensive. MRI brain demonstrated no acute intracranial abnormalities. MRI cervical spine demonstrated moderate right lateral recess disc protrusion at the C5-6 level w/osteophyte ridging. Plan: Primary management per Hospitalist. Mobilise patient w/assistance as needed. Physical & Occupational Therapy eval & tx. (Quang Lanier) Attending Statement The exam, history, and the medical decision-making described in the above note were completed with the assistance of the mid-level provider. I reviewed and agree with the findings presented. I attest that I had a [id number] encounter with the patient on the same day, and personally performed and documented my assessment and findings in the medical record. The MRI findings were discussed again with the patient at length on 12/02/2017. Her examination and symptoms remain mostly unchanged. She has some left hand intrinsic muscle weakness as well as somewhat diffuse numbness in the left hand and forearm greater than arm. Complains of dysesthesia in the fourth and fifth digits left hand. Options of conservative treatment versus surgical intervention again fully discussed with the patient. She would like to proceed with surgery. Procedure has been discussed in detail. Risks and possible complications fully discussed including risk of anesthesia, organ failure, stroke, , infection, bleeding, nerve or spinal cord injury, pain weakness numbness paralysis, hoarseness of voice or difficulty swallowing. Failure of instrumentation or fusion. Consents reviewed with the patient and signed. All questions answered. (Karri Alcantara MD) Quang Lanier December 02, 2017 10:10 Karri Alcantara MD December 03, 2017 12:27
[2017-12-02] MEDS: SODIUM CHLOR 0.9% 1000 ML INJ 1,000 ML IV SCH ×2 (11:12→16:33)
[2017-12-02 12:00] VITALS: BP 167/81; PULSE 79; RESP 21; TEMP 98; O2SAT 95
[2017-12-02] MEDS ORDERED: WALKER WHEELS/F1 MIS (14:34)
[2017-12-02 16:00] VITALS: BP 164/81; PULSE 80; RESP 21; TEMP 98.1; O2SAT 96
--- NOTE | 2017-12-02 17:01 | HHI.PR ---
Subjective Remarks Patient reports she is feeling okay. Still having some left arm weakness and numbness. Objective Vitals Vital Signs Date Time Temp Pulse Resp B/P (MAP) Pulse Ox O2 Delivery O2 Flow Rate FiO2 12/02/17 12:00 98.0 79 21 167/81 (109) 95 12/02/17 08:00 98.4 81 20 160/79 (106) 98 12/02/17 05:30 98.2 88 20 150/69 (96) 96 12/02/17 03:13 18 12/02/17 00:30 97.9 89 20 156/98 (117) 96 12/01/17 20:45 98.7 87 19 169/80 (109) 97 12/01/17 20:00 87 I/O 12/01/17 12/01/17 12/01/17 12/02/17 12/02/17 12/02/17 07:00 15:00 23:00 07:00 15:00 23:00 Intake Total 1700 ml 650 ml 1070 ml Balance 1700 ml 650 ml 1070 ml Intake Oral 900 ml 650 ml 120 ml IV Total 800 ml 950 ml # Voids 1 2 3 # Bowel Movements 0 0 Result Diagram: 11/30/17 0154 11/30/17 0154 Objective Remarks GENERAL: This is a well-nourished, well-developed patient, in no apparent distress. CARDIOVASCULAR: Normal rate and regular rhythm without murmurs, gallops, or rubs. RESPIRATORY: Good respiratory efforts. Breath sounds equal and clear to auscultation bilaterally. GASTROINTESTINAL: Abdomen soft, non-tender, non-distended. Normal active bowel sounds MUSCULOSKELETAL: Extremities without cyanosis, or edema. NEURO: Alert & Oriented x4 to person, place, time, situation. Left upper extremity with 4 out of 5 strength compared to 5 out of 5 in the rest of the extremities. Patient endorse numbness on the left upper extremity. PSYCH: Appropriate mood and affect. A/P Assessment and Plan 42-year-old female with a history of diabetes, CHF(unknown EF), hyperlipidemia, Hypertension, chronic back pain, and CAD presented to the ED with complaints of pain and acute weakness involving the left arm Left-upper extremity weakness secondary to C5-C6 degenerative disease causing mass-effect. -Appreciate neurosurgery following. Planning for surgical intervention tomorrow. -PT/OT -Pain management with Percocet. Did not tolerate [place]. Percocet is working. Angina, chronic, ACS ruled out -Cont home isosorbide Type 2 diabetes -Accu-Cheks with sliding scale insulin -Continue home Lantus -Diabetic diet Hypertension, chronic, currently uncontrolled, possibly due to pain -Continue home medications carvedilol, hydrochlorothiazide -Monitor vitals -PRNs if needed Chronic back pain -Resume home gabapentin CHF, chronic, unknown EF -Continue home dose entresto - Clonidine PRN HLD, chronic -Resume home medication atorvastatin -Iipid profile noted DVT prophylaxis: Aubrie Ospina MD December 02, 2017 17:01
[2017-12-02 20:00] VITALS: BP 183/86; PULSE 78; RESP 18; TEMP 98; O2SAT 98
[2017-12-02] MEDS: ATORVASTATIN 40 MG TAB PO SCH (20:47)
[2017-12-03] VITALS (10 sets, daily range): BP systolic 123–180; BP diastolic 60–83; PULSE 75–83; RESP 14–17; TEMP 97.9–99; O2SAT 96–100
[2017-12-03] MEDS: SODIUM CHLOR 0.9% 1000 ML INJ 1,000 ML IV SCH ×2 (02:55→15:48)
[2017-12-03] MEDS: oxyCODONE/ACETAMINOPHEN 5 MG/325 MG TAB PO PRN (05:52)
[2017-12-03] MEDS: BETHANECHOL CHL 10 MG TAB PO SCH ×3 (06:00→20:26)
[2017-12-03] MEDS: ISOSORBIDE MONONITRATE 30 MG CR TAB (IMDUR) PO SCH (06:19)
[2017-12-03] MEDS ORDERED: KETAMINE HCL 500 MG/10 ML VIAL ONE (07:11)
[2017-12-03] MEDS ORDERED: PROPOFOL 500 MG/50 ML INJ 200 ML ONE (07:12)
[2017-12-03] MEDS ORDERED: ACETAMINOPHEN 1000 MG/100 ML 100 ML IV ONE (07:13)
[2017-12-03] MEDS ORDERED: DEXMEDETOMIDINE HCL 200 MCG/2 ML VIAL ONE (07:16)
[2017-12-03] MEDS ORDERED: GENTAMICIN SULFATE 80 MG/2 ML VIAL ONE ×2 (07:44→13:16)
[2017-12-03] MEDS ORDERED: GELFOAM SIZE 100 ONE ×2 (07:44→13:09)
[2017-12-03] MEDS ORDERED: THROMBIN (TOPICAL) 5,000 UNIT VIAL ONE ×2 (07:45→13:09)
[2017-12-03] MEDS ORDERED: LIDOCAINE 1%/EPINEPHrine 1:100,000 SOLN 30 ML VIAL ONE (07:45)
[2017-12-03] MEDS ORDERED: LIDOCAINE 1%/EPINEPHrine 1:100,000 SOLN 20 ML VIAL ONE (07:46)
[2017-12-03] MEDS: INSULIN DETEMIR 100 UNITS/ML VIAL SQ SCH ×2 (08:00→20:41)
[2017-12-03] MEDS: INSULIN ASPART SUPPLEMENTAL SCALE SQ SCH ×3 (08:00→18:54)
[2017-12-03] MEDS: SUCRALFATE 1 GM TAB PO SCH ×4 (08:00→20:25)
[2017-12-03] MEDS ORDERED: ceFAZolin 2 GM PREMIX 50 ML ONE ×2 (08:26→13:09)
[2017-12-03] MEDS: SACUBITRIL/VALSARTAN 97 MG-103 MG TAB PO SCH ×2 (09:00→20:25)
[2017-12-03] MEDS: GABAPENTIN 300 MG CAP PO SCH ×3 (09:00→18:00)
[2017-12-03] MEDS: ASPIRIN 81 MG CHEW TAB CHEW SCH (09:00)
[2017-12-03] MEDS: HYDROCHLOROTHIAZIDE 25 MG TAB PO SCH (09:00)
[2017-12-03] MEDS: CARVEDILOL 12.5 MG TAB PO SCH ×2 (09:00→20:25)
[2017-12-03] MEDS: PANTOPRAZOLE SOD 40 MG DELAYED RELEASE TAB PO SCH (09:00)
[2017-12-03] MEDS: SODIUM CHLORIDE 0.9% FLUSH 10 ML FLUSH IV FLUSH SCH ×2 (09:00→20:25)
[2017-12-03] MEDS ORDERED: HYDROmorphone HCL PF 0.5 MG/0.5 ML SYRINGE IV PUSH PRN (12:00)
[2017-12-03] MEDS ORDERED: ONDANSETRON HCL 4 MG/2 ML VIAL IV ONE (12:00)
[2017-12-03] MEDS ORDERED: DEXAMETHASONE SOD PHOS 4 MG/ML VIAL IV ONE (12:00)
[2017-12-03] MEDS ORDERED: PROPOFOL 200 MG/20 ML AMP IV ONE (12:00)
[2017-12-03] MEDS ORDERED: SODIUM CHLOR 0.9% 1000 ML INJ 1,000 ML IV ONE (12:00)
[2017-12-03] MEDS ORDERED: NALOXONE HCL 0.4 MG/ML AMP IV PUSH PRN (12:00)
[2017-12-03] MEDS ORDERED: PHENYLEPH/NS 1000 MCG/10 ML SYR IV ONE (12:00)
[2017-12-03] MEDS ORDERED: BENZOCAINE 6 MG/MENTHOL 10 MG LOZENGE BUCCAL PRN (12:00)
[2017-12-03] MEDS ORDERED: LIDOCAINE HCL 1% PF 5 ML SYRINGE OTHER ONE (12:00)
[2017-12-03] MEDS ORDERED: PHENYLEPHRINE HCL 10 MG/ML VIAL IV ONE (12:00)
[2017-12-03] MEDS ORDERED: ROCURONIUM INJ 50 MG/5 ML SYRINGE IV PUSH ONE ×2 (12:00)
[2017-12-03] MEDS ORDERED: MORPHINE SULFATE 4 MG/ML INJ IV PUSH PRN (12:00)
[2017-12-03] MEDS ORDERED: ceFAZolin INJ 1,000 MG VIAL IV ONE (12:00)
[2017-12-03] MEDS ORDERED: NORMOSOL R INJ 1,000 ML IV ONE (12:00)
[2017-12-03] MEDS ORDERED: LACTATED RINGER'S 1000 ML INJ 1,000 ML IV ONE ×2 (12:00)
--- NOTE | 2017-12-03 12:02 | PD.OP ---
Operative Report Date of Surgery: December 03, 2017 Preoperative Diagnosis: (1) Cervical disc disease with myelopathy 1. C5-6 degenerative disc disease 2. Cervical stenosis 3. Cervical myelopathy Postoperative Diagnosis: (1) Cervical disc disease with myelopathy 1. C5-6 degenerative disc disease 2. Cervical stenosis 3. Cervical myelopathy 4. Sequestered C5-6 herniated nucleus pulposus Procedure: 1. C5-6 anterior cervical discectomy, resection posterior osteophytic disc complex, resection sequestered herniated nucleus pulposus, bilateral foraminotomies 2. C5-6 anterior interbody fusion, composite allograft bone 3. C5-6 anterior cervical instrumentation Anesthesia: General Surgeon: Karri Alcantara Poiser(s): Janette Banks Operation and Findings: Findings: Significantly desiccated C5-6 disc. Prominent posterior osteophytic disc complex. Moderate sequestered herniated nucleus pulposus posterior to the annulus. Procedure in detail: The patient was brought into the operating room and positioned in supine position on the 3080 table with the head and neck in neutral position. Jurado catheter was placed. Lines were established by Anesthesia. Gen. endotracheal anesthesia was induced without difficulty, taking care not to significantly flex or extend the patient's neck during intubation and positioning. Leads for intraoperative neuro monitoring were placed and a baseline study obtained. All extremities were appropriately padded. The neck and upper chest were shaved with clippers and sterilely prepped and draped. Appropriate timeout procedure was performed with all personnel present and in agreement 1% Xylocaine with epinephrine was used for local infiltration over the incision site which was made transversely at the left C5-6 level and carried sharply down through the platysma muscle. The exposure was continued medial to the sternocleidomastoid muscle and carotid artery, and lateral to the trachea and esophagus. The prevertebral fascia was elevated away from the anterior longitudinal ligament with a Kitner sponge. The longus coli muscle on each side was elevated with the Webster elevator. The self-retaining retractor was placed with the blades beneath the longus coli muscle on each side. The appropriate levels were confirmed with intraoperative C-arm and preoperative imaging studies. The microscope was brought into place and used for the remainder of the procedure including the closure. The 14 mm distraction pins were used as needed for gentle distraction during the procedure. The procedure was performed at the C5-6 level At the C5-6 level the anterior osteophyte was resected with the Leksell rongeur. The disc and annulus was incised with a 15 blade knife and discectomy performed with pituitary biopsy forceps and straight and angled curettes. The TPS drill with the 5 mm barrel bur was used to decorticate the endplates and removed the majority of the osteophyte along the anterior spinal canal as well as the right and left uncovertebral joint. The thin ligament dissector was used to free up the posterior annulus and ligament from the vertebral body margin. The remainder of the resection of the posterior annulus and ligament as well as the posterior osteophyte and bilateral uncovertebral joint was performed with the 2 and 3 mm thin footplate Kerrison rongeurs. A component of herniated nucleus pulposus was encountered posterior to the annulus and was lifted away from the thecal sac with the thickened ligament dissector and removed. Significant posterior osteophyte was encountered and extensively removed. The posterior vertebral bodies were undercut with the Kerrison rongeur and the TPS drill with the 4 mm larry bur as needed to fully decompress the anterior spinal canal. The appropriate size V G2 bone graft was then placed at each level with a good fit of the graft. The blunt nerve hook was used to probe beneath the bone graft to ensure that there was no impingement on the thecal sac or exiting nerve roots. The appropriate size Precision anterior cervical plate was then chosen and the bone screws were placed with the 14 mm fixed screws at the caudal most level and the 14 mm variable screws at the cephalad level of the decompression. The screws were firmly secured and the locking cams engaged. The entire construct was checked with intraoperative C-arm and felt to be satisfactory. During the placement of the cervical plate, a small tear developed in the internal jugular vein. This was directly controlled with the bipolar forceps and temporary application of Gelfoam and thrombin with no evidence of any further closure. The 10 Kazakh drain was brought out through a small incision in the left lower neck and secured to the skin with nylon suture and attached to sterile suction. The closure was performed with 3-0 Vicryl running for the platysma and interrupted for the subcutaneous closure, with 4-0 Vicryl running for the subcuticular closure. A dressing of sterile Mastisol, Steri-Strips, and Primapore dressing was placed. The patient was placed into a cervical collar. As the patient emerged from anesthesia, she developed quite a bit of coughing. This caused a temporary increase in drainage out of the drain with approximately 40 cc of blood loss temporarily noticed. The patient was placed in a deeper induced anesthesia to decrease the coughing and temporary pressure held on the left neck. This immediately stopped any significant bleeding. She was observed for approximately an additional 10 minutes in the operating room and no significant bleeding was encountered. However due to the temporary increased bleeding with increased coughing the patient's history of significant smoking with quite a bit of sputum suctioned out during the procedure, it was elected to have her remain intubated initially postoperative. All counts were correct at the end of the case. Estimated blood loss was 100 cc No specimen was sent to pathology. Intraoperative neuro monitoring remained stable during the procedure. Karri Alcantara MD December 03, 2017 12:02
[2017-12-03] MEDS ORDERED: PROPOFOL 1000 MG/100 ML INJ 100 ML ONE (12:16)
--- NOTE | 2017-12-03 12:16 | RADRPT ---
EXAM DATE: 12/03/2017 12:12 PM EDT AGE/SEX: 42 years / Female INDICATIONS: C5-6 discectomy and fusion. CLINICAL DATA: This is the patient's subsequent encounter. Patient reports that signs and symptoms h ave been present for 1 day and indicates a pain score of Nonresponsive. MEDICAL/SURGICAL HISTORY: None. None. COMPARISON: No prior [facility] exams available for comparison. FINDINGS: Status post anterior cervical fusion at C5-6. There is good alignment of the cervical spine and fusio n. CONCLUSION: Good position and alignment on this postoperative study. Electronically signed by: Jatinder Murphy MD 12/03/2017 12:14 PM EDT
[2017-12-03] MEDS ORDERED: PHENYLEPHRINE HCL 10 MG/ML VIAL ONE (12:31)
[2017-12-03] MEDS: PROPOFOL 1000 MG/100 ML INJ 100 ML IV PRN ×2 (12:42→20:24)
[2017-12-03] MEDS ORDERED: *morphine SULFATE 4 MG/ML PERIprocedure ONLY ONE (12:46)
[2017-12-03] MEDS ORDERED: DO NOT ADM ANY ANTICOAGULANT DRUGS PRN (14:22)
--- NOTE | 2017-12-03 14:29 | PD.OP ---
Operative Report Date of Surgery: December 03, 2017 Preoperative Diagnosis: (1) Postoperative hemorrhage involving circulatory system Postoperative neck hematoma Postoperative Diagnosis: (1) Postoperative hemorrhage involving circulatory system Postoperative neck hematoma Procedure: Evacuation postoperative neck hematoma Direct repair left internal jugular defect Anesthesia: General Surgeon: Karri Alcantara Storage Battery Inspector(s): Janette Banks Operation and Findings: Indications: 42-year-old female who underwent C5-6 ACDF for cervical myelopathy. Was noted to have a small amount of bleeding from the internal jugular vein during surgery, which was controlled with direct compression and appeared to be well controlled at the time of the previous procedure. However in recovery room with decreased sedation and coughing increased bleeding through the drain was noted and it was elected to bring the patient back to surgery for exploration of the neck wound and evacuation of hematoma and repair of any venous defect. Findings: Moderate hematoma at the previous operative site. No significant hematoma along the epidural space. Small tear at the junction of left internal jugular vein and inferior thyroid vein Procedure in detail: The patient was brought to the operating room and general endotracheal anesthesia induced without difficulty. Appropriate timeout procedure was performed with all personnel present and in agreement The anterior neck was prepped and draped in sterile fashion All extremities were appropriately padded The previous neck incision was reopened and sutures removed. A moderate acute hematoma was noted at the previous operative site. The hematoma was removed with gentle suction and irrigation. The previous bone graft and instrumentation was visualized. The long blunt nerve hook was used to probe beneath the bone graft to ensure that there was no significant hematoma present. The anterior dura appeared free of any compression. Inspection of the internal jugular vein revealed a small approximately 2-3 mm defect at the junction of the internal jugular and inferior thyroid vein. This was directly repaired with 1 stitch of 6-0 Prolene. The Metzenbaum scissors were used to dissect above the area of the tear and no further defects noted. Valsalva maneuver was performed and no further bleeding noted. The region was well irrigated with antibiotic irrigation A 7 mm flat fluted drain was left at the operative site and brought through a small incision at the lower neck and secured to the skin with nylon suture. The incision was closed with 3-0 Vicryl running for the platysma and interrupted for the subcutaneous closure and 4-0 Vicryl running subcuticular closure. A dressing of sterile Mastisol, Steri-Strips, silver impregnated dressing was applied. Cervical collar was reapplied. The patient was taken back to recovery room in stable condition. All counts are correct at the end of the case Estimated blood loss 100 cc No specimen sent to pathology Karri Alcantara MD December 03, 2017 14:29
[2017-12-03] MEDS: 1/2 NS + KCL 20 MEQ INJ 1,000 ML IV SCH ×2 (14:30→20:25)
[2017-12-03] MEDS ORDERED: TERBUTALINE INJ 1 MG/ML AMP SQ PRN (14:45)
[2017-12-03] MEDS ORDERED: *morphine SULFATE 10 MG/ML PERIprocedure ONLY ONE (14:56)
--- NOTE | 2017-12-03 15:40 | RADRPT ---
EXAM DATE: 12/03/2017 3:22 PM EDT AGE/SEX: 42 years / Female INDICATIONS: ET tube placement. CLINICAL DATA: This is the patient's subsequent encounter. Patient reports that signs and symptoms h ave been present for 2 days and indicates a pain score of Nonresponsive. MEDICAL/SURGICAL HISTORY: Hypertension. None. COMPARISON: Chest x-ray 11/30/2017. FINDINGS: A single AP view of the chest demonstrates an endotracheal tube with the tip 4 cm proximal to the car anali. Low lung volumes. No gross infiltrates. Study is blurred by motion artifact. Heart is normal in size. No effusions. Bony structures are unremarkable. Cervical spinal fusion plate. CONCLUSION: Tip of the endotracheal tube in good position. Grossly clear lungs. Electronically signed by: Alvaro Kyle MD 12/03/2017 3:39 PM EDT
[2017-12-03] MEDS ORDERED: PHENYLEPHRINE INJ 40 MG in DEXTROSE 5% IN WATE 500 ML INJ 496 ML IV PRN ×2 (16:00)
[2017-12-03] MEDS ORDERED: PROPOFOL 1000 MG/100 ML INJ 100 ML IV PRN (16:45)
[2017-12-03] MEDS ORDERED: fentaNYL DRIP 250 ML IV PRN (16:45)
--- NOTE | 2017-12-03 17:09 | PD.CONS ---
[facility] Service Critical Care Medicine Consult Requested By Neurosurgery Reason for Consult Respiratory Failure, acute Primary Care Physician Douglas Morales MD History of Present Illness This 42-year-old woman with multiple medical problems underwent cervical decompression for impingement nerve roots today. Her care is complicated by long-standing heart failure, hypertension, and poorly controlled diabetes mellitus. She will be kept on the ventilator overnight. Past Family Social History Allergies: Coded Allergies: No Known Allergies (Verified Allergy, Unknown, 11/30/17) Physical Exam Vital Signs Vital Signs Date Time Temp Pulse Resp B/P (MAP) Pulse Ox O2 Delivery O2 Flow Rate FiO2 12/03/17 12:45 92 18 158/89 (112) 93 12/03/17 12:39 78 14 86/47 (60) 97 12/03/17 12:31 78 86/40 12/03/17 12:30 78 14 93/46 (62) 97 12/03/17 12:30 98 40 12/03/17 12:25 79 12 73/39 (50) 94 Mechanical Ventilator 40 12/03/17 12:23 80 12 74/36 (49) 94 Mechanical Ventilator 40 12/03/17 12:23 40 12/03/17 11:47 Manual Cuff/Auscultation 12/03/17 07:00 98.7 83 16 163/80 (107) 98 12/03/17 04:00 83 12/03/17 03:30 98.5 78 16 180/83 (115) 96 12/03/17 00:30 97.9 75 17 162/70 (100) 96 12/02/17 20:00 98.0 78 18 183/86 (118) 98 Physical Exam Head: Normal Neck: Anterior cervical bandage left side, dry clean Lungs: Good bilateral breath sounds with decreased movement in the bases. No wheezes or crackles. Heart: Normal S1-S2, regular rate and rhythm, Abdomen: Large, soft, nondistended, no guarding, bowel sounds are present. Extremities: Warm, well-perfused Neuro: Moves 4 limbs spontaneously when sedation is light. I am unable to to detect differences in strength between the limbs. Pupils are 3 mm and briskly reactive to light. Laboratory Laboratory Tests Test 12/03/17 14:55 Blood Gas Puncture Site ART LINE Blood Gas Patient Temperature 98.6 Blood Gas HCO3 25 Blood Gas Base Excess 0.1 Blood Gas Oxygen Saturation 93 Arterial Blood pH 7.37 Arterial Blood Partial Pressure CO2 44 Arterial Blood Partial Pressure O2 86 Arterial Blood Oxygen Content 15.6 Arterial Blood Carboxyhemoglobin 1.1 Arterial Blood Methemoglobin 1.4 Blood Gas Hemoglobin 11.8 Oxygen Delivery Device VENTILATOR Blood Gas Ventilator Setting PRVC/AC14/500 Blood Gas Inspired Oxygen 40 Result Diagram: 11/30/17 0154 11/30/17 0154 Assessment and Plan Assessment and Plan Assessment and Plan 42-year-old female with a history of diabetes, CHF(unknown EF), hyperlipidemia, Hypertension, chronic back pain, and CAD presented to the ED with complaints of pain and acute weakness left arm. Left-upper extremity weakness secondary to C5-C6 degenerative disease causing mass-effect. -Appreciate neurosurgery following. Cervical level decompression 12/03. -PT/OT -Pain management with Percocet. Did not tolerate [place]. Percocet is working. Acute respiratory failure -PRBC ventilator mode overnight -ET tube a little high but body habitus indicates this to be good position. Angina, chronic, ACS ruled out -Cont home isosorbide Type 2 diabetes -Accu-Cheks with sliding scale insulin -Continue home Lantus -Convert sliding scale to every 6 hours with glucose checks. Hypertension, chronic, currently uncontrolled, possibly due to pain -Continue home medications carvedilol, hydrochlorothiazide -Monitor vitals -PRNs if needed, may need Cardene tonight. Chronic back pain -Resume home gabapentin CHF, chronic, unknown EF -Continue home dose entresto - Clonidine PRN HLD, chronic -Resume home medication atorvastatin -Iipid profile noted DVT prophylaxis: SCDs Overall impression: This woman is critically ill after urgent cervical level decompression for nerve root compression. Her perioperative care is complicated by long-standing heart failure, hypertension, and uncontrolled diabetes mellitus. Critical care 42 minutes Isaac Lutz MD December 03, 2017 17:08
[2017-12-03] MEDS: CHLORHEXIDINE 0.12% (ORAL KIT) 15 ML CUP MT SCH (20:25)
[2017-12-04] VITALS (11 sets, daily range): BP systolic 101–201; BP diastolic 52–107; PULSE 77–94; RESP 14–26; TEMP 98–99; O2SAT 95–100
[2017-12-04] MEDS: BETHANECHOL CHL 10 MG TAB PO SCH ×3 (06:00→21:04)
[2017-12-04] MEDS: INSULIN ASPART SUPPLEMENTAL SCALE SQ SCH ×4 (06:00→17:34)
[2017-12-04] MEDS: SODIUM CHLOR 0.9% 1000 ML INJ 1,000 ML IV SCH (06:06)
[2017-12-04] MEDS: ISOSORBIDE MONONITRATE 30 MG CR TAB (IMDUR) PO SCH (06:16)
--- NOTE | 2017-12-04 07:27 | HHI.CCPN ---
Subjective Remarks/Hospital Course This 42-year-old woman with multiple medical problems underwent cervical decompression for impingement nerve roots today. Her care is complicated by long-standing heart failure, hypertension, and poorly controlled diabetes mellitus. Post op in recovery was noted to have a small amount of bleeding from the internal jugular vein during surgery, which was controlled with direct compression. Later in PACU, increased bleeding noted through the drain was noted and patient was taken back to surgery. Found to have moderate hematoma at the previous operative site. Underwent evacuation neck hematoma and direct repair of left internal jugular defect. (Small tear at the junction of left internal jugular vein and inferior thyroid vein) 12/04: Remains intubated sedated but wakes up easily follows commands x4. FiO2 is down to 35%. Neck RIVAS drain with 30 mL output. Will start CPAP trials for possible extubation Objective Vital Signs Date Time Temp Pulse Resp B/P (MAP) Pulse Ox O2 Delivery O2 Flow Rate FiO2 12/04/17 04:00 35 12/04/17 04:00 99.0 77 14 114/58 (76) 100 12/03/17 14:30 Mechanical Ventilator 40 Intake and Output 12/04/17 12/04/17 12/05/17 08:00 16:00 00:00 Output Total 450 ml Balance -450 ml Result Diagram: 11/30/17 0154 11/30/17 0154 Other Results Laboratory Tests Test 12/03/17 14:55 12/04/17 04:57 Blood Gas Puncture Site ART LINE ART LINE Blood Gas Patient Temperature 98.6 98.6 Blood Gas HCO3 25 mmol/L (22-26) 23 mmol/L (22-26) Blood Gas Base Excess 0.1 mmol/L (-2-2) -1.4 mmol/L (-2-2) Blood Gas Oxygen Saturation 93 % (90-100) 96 % (90-100) Arterial Blood pH 7.37 (7.380-7.420) 7.35 (7.380-7.420) Arterial Blood Partial Pressure CO2 44 mmHg (38-42) 43 mmHg (38-42) Arterial Blood Partial Pressure O2 86 mmHg (61-120) 101 mmHg (61-120) Arterial Blood Oxygen Content 15.6 Vol % (12.0-20.0) 15.2 Vol % (12.0-20.0) Arterial Blood Carboxyhemoglobin 1.1 % (0-4) 1.2 % (0-4) Arterial Blood Methemoglobin 1.4 % (0-2) 1.0 % (0-2) Blood Gas Hemoglobin 11.8 G/DL (12.0-16.0) 11.2 G/DL (12.0-16.0) Oxygen Delivery Device VENTILATOR VENTILATOR Blood Gas Ventilator Setting PRVC/AC14/500 SEE COMMENTS Blood Gas Inspired Oxygen 40 % 35 % Objective Remarks Gen: Intubated sedated, no acute Head: Normal Neck: Anterior cervical bandage left side, dry clean. RIVAS drain with 30 mL output Lungs: Good bilateral breath sounds with decreased movement in the bases. No wheezes or crackles. Heart: Normal S1-S2, regular rate and rhythm, Abdomen: Large, soft, nondistended, no guarding, bowel sounds are present. Extremities: Warm, well-perfused Neuro: Moves 4 limbs spontaneously when sedation is lightened. Strength appears equal. wakes up easily follows commands x4. Pupils are 3 mm and briskly reactive to light. A/P Assessment and Plan Assessment and Plan 42-year-old female with a history of diabetes, CHF(unknown EF), hyperlipidemia, Hypertension, chronic back pain, and CAD presented to the ED with complaints of pain and acute weakness left arm. Left-upper extremity weakness secondary to C5-C6 degenerative disease causing mass-effect. Left sided neck hematoma -Appreciate neurosurgery following. Cervical level decompression 12/03. -Developed left-sided neck hematoma, taken back to OR for evacuation neck hematoma and repair left internal jugular defect -PT/OT -Currently on propofol and fentanyl for sedation and vent synchrony, and pain control -Pain management with Percocet. Did not tolerate [place]. Percocet is working. Acute respiratory failure -PRVC ventilator mode overnight -ET tube a little high but body habitus indicates this to be good position. -Start CPAP trial with possible extubation -DuoNeb PRN Angina, chronic, ACS ruled out -Cont home isosorbide. Type 2 diabetes -Accu-Cheks with sliding scale insulin -Continue home Lantus -Convert sliding scale to every 6 hours with glucose checks. Hypertension, chronic, currently uncontrolled, possibly due to pain -Continue home medications carvedilol, hydrochlorothiazide -Monitor vitals -PRNs if needed, may need Cardene tonight. Chronic back pain -Resumed home gabapentin CHF, chronic, unknown EF -Continue home dose entresto -Clonidine PRN -Give Lasix 20 mg IV x1 and KCL HLD, chronic -Resume home medication atorvastatin -Iipid profile noted DVT prophylaxis: SCDs Overall impression: Critically ill after urgent cervical level decompression for nerve root compression. Her perioperative care is complicated by long- standing heart failure, hypertension, and uncontrolled diabetes mellitus. Patient had left neck hematoma postop for which she needed evacuation, repair of the internal jugular vein defect. She is at high risk of airway compromise after extubation. Continue ICU care for close observation postextubation Critical care 32 minutes Edison Cole MD December 04, 2017 07:27
[2017-12-04] MEDS ORDERED: POTASSIUM CHLORIDE 25 MEQ EFFERVESCENT TAB PO ONE (07:30)
[2017-12-04] MEDS ORDERED: FUROSEMIDE 20 MG/2 ML VIAL IV PUSH ONE (07:30)
[2017-12-04] MEDS: LABETALOL HCL 100 MG/20 ML VIAL IV PUSH PRN ×2 (07:51→11:56)
[2017-12-04] MEDS: CHLORHEXIDINE 0.12% (ORAL KIT) 15 ML CUP MT SCH ×2 (08:00→19:33)
[2017-12-04] MEDS: INSULIN DETEMIR 100 UNITS/ML VIAL SQ SCH ×2 (09:57→21:04)
[2017-12-04] MEDS: SODIUM CHLORIDE 0.9% FLUSH 10 ML FLUSH IV FLUSH SCH ×2 (09:58→21:05)
[2017-12-04] MEDS: SUCRALFATE 1 GM TAB PO SCH ×4 (10:07→21:04)
[2017-12-04] MEDS: PANTOPRAZOLE SOD 40 MG DELAYED RELEASE TAB PO SCH (10:08)
[2017-12-04] MEDS: SACUBITRIL/VALSARTAN 97 MG-103 MG TAB PO SCH ×2 (10:08→21:05)
[2017-12-04] MEDS: HYDROCHLOROTHIAZIDE 25 MG TAB PO SCH (10:08)
[2017-12-04] MEDS: CARVEDILOL 12.5 MG TAB PO SCH ×2 (10:08→21:05)
[2017-12-04] MEDS: GABAPENTIN 300 MG CAP PO SCH ×3 (10:09→17:33)
--- NOTE | 2017-12-04 11:06 | HHI.NSPN ---
History Chief Complaint: Pain to the surgical incision. Interval History 11/30: Ms. 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 The pain is a sharp radiating pain which goes from the fingers of the left hand up to the neck and shoulder. She does have a history of some chronic neck and back pain. Yesterday she felt that she may have had some weakness in the left leg. She has not had any other chest pain or shortness of breath or palpitations. The patient has a history of diabetes and hypertension. 12/01: The patient is awake in the chair when seen this morning. She is talking on her cellphone. She did have a headache earlier but none at present and she denied any dizziness. She complains of pain from the left lateral neck into the left shoulder going down into the left upper extremity to just below the elbow. She also says she has numbness to all extremities with the left side being worse. She reports left-sided weakness. Upon examination the has numbness to all extremities, worse on the left. She has left-sided muscle weakness. And she has tenderness to palpation of the left lateral neck, left shoulder and left upper extremity. She is forgetful of what she wants to say at times. 12/02: This morning the patient was awake and sitting up in bed tapping on her cellphone. When asked how her neck was this morning she replied "The same." Her affect was quite flat and she was reluctant to respond to questions. She stated that she was "ready to go home." She interacted only after being coaxed and only to a degree. She did complain of low back pain when her muscle strength was tested to the lower extremities. She had decreased muscle strength which was felt to be related to her lack of cooperation in being evaluated. As this practitioner was leaving the room she said something which was not heard. When asked what she said she replied, with what was felt to be disgust, "I'm not talkin' to you." 12/03: The patient went for a C5-6 anterior cervical discectomy with resection of a posterior osteophytic disc complex and sequestered herniated nucleus pulposus, as well as bilateral foraminotomies and anterior interbody fusion with cervical instrumentation. Post-operatively the patient was admitted to the ISC unit. She was hypotensive post-operatively and returned to the operating room for evacuation of a postoperative neck haematoma and direct repair of a left internal jugular defect. She returned to the ISC unit for further care and monitoring. 12/04: The patient was extubated this morning. Speech Therapy evaluated the patient and she passed a bedside swallow evaluation. When seen the patient is awake in bed talking with her Nurse. She says she is doing alright. She reports some surgical site pain. She reports numbness to the left anterior wrist into the hand. She has pain to both proximal upper extremities. Upon examination she does have improvement in her sensation and motor strength. Exam Results 12/02/17 12/02/17 12/03/17 12/03/17 12/04/17 12/04/17 06:00 18:00 06:00 18:00 06:00 18:00 Intake Total 2350 ml 1070 ml 750 ml 3498 ml Output Total 1100 ml 650 ml Balance 2350 ml 1070 ml 750 ml 2398 ml -650 ml Intake Oral 1550 ml 120 ml 750 ml IV Total 800 ml 950 ml 3098 ml Other 400 ml Output Urine Total 900 ml 620 ml Drainage Total 30 ml Estimated Blood Loss 200 ml # Voids 5 4 # Bowel Movements 0 0 # Sanitary Pads 1 Pads Vital Signs Date Time Temp Pulse Resp B/P (MAP) Pulse Ox O2 Delivery O2 Flow Rate FiO2 12/04/17 08:30 Nasal Cannula 35 12/04/17 08:30 99 Nasal Cannula 4 12/04/17 04:00 35 12/04/17 04:00 99.0 77 14 114/58 (76) 100 12/04/17 00:19 100 35 12/04/17 00:00 99.0 80 14 101/52 (68) 100 12/04/17 00:00 35 12/03/17 20:18 99 35 12/03/17 20:00 99.0 83 14 123/60 (81) 99 12/03/17 20:00 40 12/03/17 17:48 98 40 12/03/17 16:00 98.6 83 14 153/74 (100) 100 153/74 (100) 12/03/17 16:00 40 12/03/17 15:45 85 14 113/55 (74) 99 12/03/17 15:30 86 14 114/58 (76) 99 12/03/17 15:30 100 100 12/03/17 15:15 86 14 104/50 (68) 99 12/03/17 15:00 91 14 126/69 (88) 100 12/03/17 14:45 86 14 103/54 (70) 98 12/03/17 14:30 85 14 104/53 (70) 98 Mechanical Ventilator 40 12/03/17 14:21 98.1 83 14 111/53 (72) 97 Mechanical Ventilator 40 12/03/17 12:45 92 18 158/89 (112) 93 12/03/17 12:39 78 14 86/47 (60) 97 12/03/17 12:31 78 86/40 12/03/17 12:30 78 14 93/46 (62) 97 12/03/17 12:30 98 40 12/03/17 12:25 79 12 73/39 (50) 94 Mechanical Ventilator 40 12/03/17 12:23 80 12 74/36 (49) 94 Mechanical Ventilator 40 12/03/17 12:23 40 12/03/17 11:47 Manual Cuff/Auscultation 12/03/17 07:00 98.7 83 16 163/80 (107) 98 12/03/17 04:00 83 12/03/17 03:30 98.5 78 16 180/83 (115) 96 12/03/17 00:30 97.9 75 17 162/70 (100) 96 12/02/17 20:00 98.0 78 18 183/86 (118) 98 12/02/17 16:00 98.1 80 21 164/81 (108) 96 12/02/17 12:00 98.0 79 21 167/81 (109) 95 12/02/17 08:00 98.4 81 20 160/79 (106) 98 12/02/17 05:30 98.2 88 20 150/69 (96) 96 12/02/17 03:13 18 12/02/17 00:30 97.9 89 20 156/98 (117) 96 12/01/17 20:45 98.7 87 19 169/80 (109) 97 12/01/17 20:00 87 12/01/17 16:00 97.6 87 16 158/88 (111) 97 12/01/17 13:52 75 12/01/17 13:52 77 12/01/17 12:00 97.5 77 16 183/96 (125) 96 Physical Examination GENERAL: Awake & alert sitting up in bed talking w/her Nurse. Affect somewhat flat but interacts. Does require some coaxing at times. No apparent distress. HEENT: Normocephalic, atraumatic. NECK: [place] cervical collar in place. Midline cervical spine NTTP. TTP to left anterior neck surgical incision, dressing intact, RIVAS drain to bulb suction w/serosanguinous drainage. No JVD. Trachea midline. MUSCULOSKELETAL: [place] spontaneously & purposefully. Proximal BUE TTP. NEUROLOGICAL: AAOx3. Speech clear & appropriate. Follows commands w/o difficulty. Sensation decreased from left wrist down and LLE to just below the knee. Motor strength: LUE: Deltoid 4 to 4+/5, biceps 4 to 4+/5, triceps 4 to 4+/5 RUE: Deltoid 4+ to 5/5, biceps 4+/5, triceps 4+/5. LLE: Iliopsoas 4 to 4+/5, quadriceps 4/5, hamstring 4 to 4+/5, tibialis anterior 4 to 4+/5, gastrosoleus 4+/5, extensor hallucis longus 4/5. RLE: Iliopsoas 4+/5, quadriceps 4+ to 5/5, hamstring 4+ to 5/5, tibialis anterior 4+ to 5/5, gastrosoleus 4+ to 5/5, extensor hallucis longus 4+ to 5/5. Lab, Micro, Other Results Recent Impressions Chest X-Ray 12/03/17 0000 Signed Impressions: CONCLUSION: Tip of the endotracheal tube in good position. Grossly clear lungs. Cervical Spine X-Ray 12/03/17 0000 Signed Impressions: CONCLUSION: Good position and alignment on this postoperative study. Laboratory Tests Test 12/03/17 14:55 12/04/17 04:57 Blood Gas Puncture Site ART LINE ART LINE Blood Gas Patient Temperature 98.6 98.6 Blood Gas HCO3 25 mmol/L 23 mmol/L Blood Gas Base Excess 0.1 mmol/L -1.4 mmol/L Blood Gas Oxygen Saturation 93 % 96 % Arterial Blood pH 7.37 7.35 Arterial Blood Partial Pressure CO2 44 mmHg 43 mmHg Arterial Blood Partial Pressure O2 86 mmHg 101 mmHg Arterial Blood Oxygen Content 15.6 Vol % 15.2 Vol % Arterial Blood Carboxyhemoglobin 1.1 % 1.2 % Arterial Blood Methemoglobin 1.4 % 1.0 % Blood Gas Hemoglobin 11.8 G/DL 11.2 G/DL Oxygen Delivery Device VENTILATOR VENTILATOR Blood Gas Ventilator Setting [facility]/AC14/500 SEE COMMENTS Blood Gas Inspired Oxygen 40 % 35 % Medical Decision Making Impression and Plan Impression: 1. C5-6 degenerative disc disease with at least moderate posterior osteophytic disc complex with significant spinal canal compromise. 2. Left cervical radiculopathy 3. Diabetes 4. Hypertension Postoperative Diagnosis: Procedure #1: (1) Cervical disc disease with myelopathy 1. C5-6 degenerative disc disease 2. Cervical stenosis 3. Cervical myelopathy 4. Sequestered C5-6 herniated nucleus pulposus Procedure #2: (1) Postoperative hemorrhage involving circulatory system Postoperative neck hematoma The patient is doing well. She has improvement in her symptoms post- operatively. The past 24 hrs: Afebrile; Hypotensive post-operatively but normotensive after return from 2nd surgery. RIVAS drain w/30 mL drain since surgery as of shift change this morning. Reviewed labs for today not collected yet. POD #1 () s/p: Procedure #1: 1. C5-6 anterior cervical discectomy, resection posterior osteophytic disc complex, resection sequestered herniated nucleus pulposus, bilateral foraminotomies 2. C5-6 anterior interbody fusion, composite allograft bone 3. C5-6 anterior cervical instrumentation Procedure #2: Evacuation postoperative neck hematoma Direct repair left internal jugular defect Plan: Primary management per Hospitalist. Critical care management per Crystal[employer]. Neuro checks. Monitor RIVAS drain output. [place] cervical collar at all times. Mobilise patient w/assistance as needed. Physical & Occupational Therapy eval & tx. Hold pharmacologic DVT prophylaxis. Mechanical DVT prophylaxis. Diet per Speech Therapy. Quang Lanier December 04, 2017 11:06
[2017-12-04 12:01] LABS: BASOPHIL % 0.1 % (0.0-2.0); EOSINOPHIL % 0.1 % (0.0-4.0); HEMATOCRIT 34.4 % (35.0-46.0); HEMOGLOBIN 11.1 GM/DL (11.6-15.3); LYMPH % 16.6 % (9.0-44.0); LYMPHOCYTE # 2.4 TH/MM3 (1.0-4.8); MEAN CELL VOLUME 85.2 FL (80.0-100.0); MEAN CORPUSCULAR HEMOGLOBIN 27.5 PG (27.0-34.0); MEAN CORPUSCULAR HGB CONC 32.3 % (32.0-36.0); MEAN PLATELET VOLUME 9.3 FL (7.0-11.0); MONO % 5.9 % (0.0-8.0); MONOCYTE # 0.8 TH/MM3 (0-0.9); NEUT % 77.3 % (16.0-70.0); PLATELET COUNT 275 TH/MM3 (150-450); RED BLOOD COUNT 4.04 MIL/MM3 (4.00-5.30); WHITE BLOOD COUNT 14.2 TH/MM3 (4.0-11.0)
[2017-12-04 12:19] LABS: BICARBONATE 26.7 MEQ/L (21.0-32.0); CALCIUM 8.5 MG/DL (8.5-10.1); CREATININE 0.84 MG/DL (0.50-1.00)
[2017-12-04] MEDS: oxyCODONE/ACETAMINOPHEN 10 MG/325 MG TAB PO PRN ×2 (13:02→19:33)
[2017-12-04] MEDS: niCARdipine INJ 25 MG in SODIUM CHLOR 0.9% 250 ML INJ 250 ML IV PRN ×2 (13:33→18:31)
[2017-12-04] MEDS: cloNIDine HCL 0.3 MG TAB PO SCH ×2 (14:00→21:05)
[2017-12-04] MEDS ORDERED: cloNIDine HCL 0.3 MG TAB PO PRN (15:15)
[2017-12-04] MEDS: ONDANSETRON ODT 4 MG TAB PO PRN (16:51)
[2017-12-04] MEDS: CYCLOBENZAPRINE HCL 10 MG TAB PO SCH (17:33)
[2017-12-05] VITALS (8 sets, daily range): BP systolic 111–145; BP diastolic 57–76; PULSE 72–82; RESP 16–25; TEMP 97.8–99.1; O2SAT 94–100
[2017-12-05] MEDS: oxyCODONE/ACETAMINOPHEN 10 MG/325 MG TAB PO PRN ×2 (03:24→21:43)
[2017-12-05] MEDS: cloNIDine HCL 0.3 MG TAB PO SCH ×3 (05:57→21:43)
[2017-12-05] MEDS: BETHANECHOL CHL 10 MG TAB PO SCH ×4 (05:57→21:48)
[2017-12-05] MEDS: INSULIN ASPART SUPPLEMENTAL SCALE SQ SCH ×4 (05:58→17:21)
--- NOTE | 2017-12-05 07:54 | HHI.CCPN ---
Subjective Remarks/Hospital Course This 42-year-old woman with multiple medical problems underwent cervical decompression for impingement nerve roots today. Her care is complicated by long-standing heart failure, hypertension, and poorly controlled diabetes mellitus. Post op in recovery was noted to have a small amount of bleeding from the internal jugular vein during surgery, which was controlled with direct compression. Later in PACU, increased bleeding noted through the drain was noted and patient was taken back to surgery. Found to have moderate hematoma at the previous operative site. Underwent evacuation neck hematoma and direct repair of left internal jugular defect. (Small tear at the junction of left internal jugular vein and inferior thyroid vein) 12/04: Remains intubated sedated but wakes up easily follows commands x4. FiO2 is down to 35%. Neck RIVAS drain with 30 mL output. Will start CPAP trials for possible extubation 12/05: Extubated yesterday tolerating well respiratory foley. Required Cardene infusion yesterday for blood pressure control currently weaned off and adequately controlled. Neck RIVAS drain with 30 mL output Objective Vital Signs Date Time Temp Pulse Resp B/P (MAP) Pulse Ox O2 Delivery O2 Flow Rate FiO2 12/05/17 06:00 99.1 77 17 137/65 (89) 99 12/04/17 20:58 Nasal Cannula 4.00 12/04/17 08:30 35 Intake and Output 12/05/17 12/05/17 12/06/17 08:00 16:00 00:00 Intake Total 1000 ml Output Total 2120 ml Balance -1120 ml Result Diagram: 12/04/17 1142 12/04/17 1142 Objective Remarks Gen: Lying in bed no acute distress Head: Normal Neck: Anterior cervical bandage left side, dry clean. RIVAS drain with 30 mL output, serosanguineous Lungs: Good bilateral breath sounds with decreased movement in the bases. No wheezes or crackles. Heart: Normal S1-S2, regular rate and rhythm, Abdomen: Large, soft, nondistended, no guarding, bowel sounds are present. Extremities: Warm, well-perfused Neuro: Alert awake oriented follows commands muscle strength appears to be equal , without discernible weakness in all extremities A/P Assessment and Plan Assessment and Plan 42-year-old female with a history of diabetes, CHF(unknown EF), hyperlipidemia, Hypertension, chronic back pain, and CAD presented to the ED with complaints of pain and acute weakness left arm. Left-upper extremity weakness secondary to C5-C6 degenerative disease causing mass-effect. Left sided neck hematoma -S/P Cervical level decompression 12/03. -Developed left-sided neck hematoma, taken back to OR for evacuation neck hematoma and repair left internal jugular defect -PT/OT -Pain controlled with as needed Dilaudid and Percocet Acute respiratory failure-resolved -Extubated yesterday tolerating well -Aggressive pulmonary toilet -DuoNeb PRN Angina, chronic, ACS ruled out -Cont home isosorbide. Type 2 diabetes -Accu-Cheks with sliding scale insulin -Continue Levemir -Convert sliding scale to every 6 hours with glucose checks. Hypertension, chronic, currently uncontrolled, possibly due to pain -Continue home medications carvedilol, hydrochlorothiazide -Continue enteresto, clonidine 0.3 mg p.o. every 8 hours. Use as needed hydralazine -Monitor vitals -Off Cardene infusion Chronic back pain -Resumed home gabapentin CHF, chronic, unknown EF -Continue home dose entresto -Clonidine PRN -Given Lasix 20 mg IV x1 and KCL prior to extubation HLD, chronic -Resume home medication atorvastatin -Iipid profile noted DVT prophylaxis: SCDs Level 2 Discussed with N/S ALICIA Matute. Will transfer to 5N Neuro floor. [facility] consulted to assume care in am 12/06/17 Edison Cole MD December 05, 2017 07:54
[2017-12-05] MEDS ORDERED: RESP: ALBUTEROL 2.5 MG/IPRATROPIUM 0.5 MG NEB (PRN) NEB (08:00)
[2017-12-05] MEDS: SUCRALFATE 1 GM TAB PO SCH ×5 (08:00→21:43)
[2017-12-05] MEDS: CHLORHEXIDINE 0.12% (ORAL KIT) 15 ML CUP MT SCH ×2 (08:00→20:00)
--- NOTE | 2017-12-05 08:38 | HHI.NSPN ---
(Hernesto Matute) History Chief Complaint: Pain to the surgical incision. (Hernesto Matute) Interval History 11/30: Ms. 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 The pain is a sharp radiating pain which goes from the fingers of the left hand up to the neck and shoulder. She does have a history of some chronic neck and back pain. Yesterday she felt that she may have had some weakness in the left leg. She has not had any other chest pain or shortness of breath or palpitations. The patient has a history of diabetes and hypertension. 12/01: The patient is awake in the chair when seen this morning. She is talking on her cellphone. She did have a headache earlier but none at present and she denied any dizziness. She complains of pain from the left lateral neck into the left shoulder going down into the left upper extremity to just below the elbow. She also says she has numbness to all extremities with the left side being worse. She reports left-sided weakness. Upon examination the has numbness to all extremities, worse on the left. She has left-sided muscle weakness. And she has tenderness to palpation of the left lateral neck, left shoulder and left upper extremity. She is forgetful of what she wants to say at times. 12/02: This morning the patient was awake and sitting up in bed tapping on her cellphone. When asked how her neck was this morning she replied "The same." Her affect was quite flat and she was reluctant to respond to questions. She stated that she was "ready to go home." She interacted only after being coaxed and only to a degree. She did complain of low back pain when her muscle strength was tested to the lower extremities. She had decreased muscle strength which was felt to be related to her lack of cooperation in being evaluated. As this practitioner was leaving the room she said something which was not heard. When asked what she said she replied, with what was felt to be disgust, "I'm not talkin' to you." 12/03: The patient went for a C5-6 anterior cervical discectomy with resection of a posterior osteophytic disc complex and sequestered herniated nucleus pulposus, as well as bilateral foraminotomies and anterior interbody fusion with cervical instrumentation. Post-operatively the patient was admitted to the ISC unit. She was hypotensive post-operatively and returned to the operating room for evacuation of a postoperative neck haematoma and direct repair of a left internal jugular defect. She returned to the ISC unit for further care and monitoring. 12/04: The patient was extubated this morning. Speech Therapy evaluated the patient and she passed a bedside swallow evaluation. When seen the patient is awake in bed talking with her Nurse. She says she is doing alright. She reports some surgical site pain. She reports numbness to the left anterior wrist into the hand. She has pain to both proximal upper extremities. Upon examination she does have improvement in her sensation and motor strength. 12/05/17: Patient denies neck pain. No radiculopathy. She states the paresthesias she had in her upper extremities is much better. Pt wants to go to floor states feeling well. (Hernesto Matute) Review of Systems General: Negative for: fever, chills, insomnia Respiratory: Negative for: shortness of breath, cough, sputum Cardiovascular: Negative for: chest pain Gastrointestinal: Negative for: nausea, vomitting, diarrhea, constipation ( Hernesto Matute) Exam Results Vital Signs Date Time Temp Pulse Resp B/P (MAP) Pulse Ox O2 Delivery O2 Flow Rate FiO2 12/05/17 06:00 99.1 77 17 137/65 (89) 99 12/04/17 20:58 Nasal Cannula 4.00 12/04/17 08:30 35 Intake and Output 12/05/17 12/05/17 12/06/17 08:00 16:00 00:00 Intake Total 1000 ml Output Total 2120 ml Balance -1120 ml (Hernesto Matute) Physical Examination GENERAL: Awake & alert sitting up in bed talking w/her Nurse. Affect somewhat flat but interacts. Does require some coaxing at times. No apparent distress. HEENT: Normocephalic, atraumatic. NECK: [place] cervical collar in place. Midline cervical spine NTTP. TTP to left anterior neck surgical incision, dressing intact, RIVAS drain to bulb suction w/serosanguinous drainage. No JVD. Trachea midline. MUSCULOSKELETAL: [place] spontaneously & purposefully. Proximal BUE TTP. NEUROLOGICAL: AAOx3. Speech clear & appropriate. Follows commands w/o difficulty. Sensation decreased from left wrist down and LLE to just below the knee. Motor strength: LUE: Deltoid 4 to 4+/5, biceps 4 to 4+/5, triceps 4 to 4+/5 RUE: Deltoid 4+ to 5/5, biceps 4+/5, triceps 4+/5. LLE: Iliopsoas 4 to 4+/5, quadriceps 4/5, hamstring 4 to 4+/5, tibialis anterior 4 to 4+/5, gastrosoleus 4+/5, extensor hallucis longus 4/5. RLE: Iliopsoas 4+/5, quadriceps 4+ to 5/5, hamstring 4+ to 5/5, tibialis anterior 4+ to 5/5, gastrosoleus 4+ to 5/5, extensor hallucis longus 4+ to 5/5. (Hernesto Matute) Lab, Micro, Other Results Last Impressions Chest X-Ray 12/03/17 Signed Impressions: CONCLUSION: Tip of the endotracheal tube in good position. Grossly clear lungs. Cervical Spine X-Ray 12/03/17 Signed Impressions: CONCLUSION: Good position and alignment on this postoperative study. Cervical Spine CT 11/30/17 0241 Signed Impressions: CONCLUSION: Degenerative disc change at the C5-6 level with posterior disc oste ophyte complex greatest in the right parasagittal region. There is mass effect on the anterior thecal sac and comes in close contact with the anterior cord wh ich is not well delineated. Head CT 11/30/17 0152 Signed Impressions: CONCLUSION: 1. Stable unremarkable noncontrast head CT. Cervical Spine MRI 11/30/17 Signed Impressions: CONCLUSION: Moderate right lateral recess disc protrusion at the C5-C6 level with osteophyt ic ridging. Brain MRI 11/30/17 Signed Impressions: CONCLUSION: 1. No acute intracranial abnormalities. Specifically no recent infarction. Muc osal thickening right mastoid air cells. Laboratory Tests Test 12/04/17 11:42 White Blood Count 14.2 TH/MM3 Red Blood Count 4.04 MIL/MM3 Hemoglobin 11.1 GM/DL Hematocrit 34.4 % Mean Corpuscular Volume 85.2 FL Mean Corpuscular Hemoglobin 27.5 PG Mean Corpuscular Hemoglobin Concent 32.3 % Red Cell Distribution Width 13.0 % Platelet Count 275 TH/MM3 Mean Platelet Volume 9.3 FL Neutrophils (%) (Auto) 77.3 % Lymphocytes (%) (Auto) 16.6 % Monocytes (%) (Auto) 5.9 % Eosinophils (%) (Auto) 0.1 % Basophils (%) (Auto) 0.1 % Neutrophils # (Auto) 11.0 TH/MM3 Lymphocytes # (Auto) 2.4 TH/MM3 Monocytes # (Auto) 0.8 TH/MM3 Eosinophils # (Auto) 0.0 TH/MM3 Basophils # (Auto) 0.0 TH/MM3 CBC Comment DIFF FINAL Differential Comment Blood Urea Nitrogen 14 MG/DL Creatinine 0.84 MG/DL Random Glucose 185 MG/DL Calcium Level 8.5 MG/DL Sodium Level 137 MEQ/L Potassium Level 3.8 MEQ/L Chloride Level 103 MEQ/L Carbon Dioxide Level 26.7 MEQ/L Anion Gap 7 MEQ/L Estimat Glomerular Filtration Rate 91 ML/MIN (Hernesto Matute) Medical Decision Making Impression and Plan Impression: 1. C5-6 degenerative disc disease with at least moderate posterior osteophytic disc complex with significant spinal canal compromise. 2. Left cervical radiculopathy 3. Diabetes 4. Hypertension Postoperative Diagnosis: Procedure #1: (1) Cervical disc disease with myelopathy 1. C5-6 degenerative disc disease 2. Cervical stenosis 3. Cervical myelopathy 4. Sequestered C5-6 herniated nucleus pulposus Procedure #2: (1) Postoperative hemorrhage involving circulatory system Postoperative neck hematoma The patient is doing well. She has improvement in her symptoms post- operatively. The past 24 hrs: Afebrile; Hypotensive post-operatively but normotensive after return from 2nd surgery. Reviewed labs for today not collected yet. POD #1 () s/p: Procedure #1: 1. C5-6 anterior cervical discectomy, resection posterior osteophytic disc complex, resection sequestered herniated nucleus pulposus, bilateral foraminotomies 2. C5-6 anterior interbody fusion, composite allograft bone 3. C5-6 anterior cervical instrumentation Procedure #2: Evacuation postoperative neck hematoma Direct repair left internal jugular defect Plan: Primary management per Hospitalist. Neuro checks. Monitor RIVAS drain output. [place] cervical collar at all times. Mobilise patient w/assistance as needed. Physical & Occupational Therapy eval & tx. Hold pharmacologic DVT prophylaxis. Mechanical DVT prophylaxis. Diet per Speech Therapy. Pt being transferred to med/surg floor. Discussed with Dr. Cole from critical care. (Hernesto Matute) Attending Statement The exam, history, and the medical decision-making described in the above note were completed with the assistance of the mid-level provider. I reviewed and agree with the findings presented. I attest that I had a [id number] encounter with the patient on the same day, and personally performed and documented my assessment and findings in the medical record. (Beltran Newton MD) Hernesto Matute December 05, 2017 08:38 Beltran Newton MD December 05, 2017 10:48
[2017-12-05] MEDS: HYDROCHLOROTHIAZIDE 25 MG TAB PO SCH (08:48)
[2017-12-05] MEDS: SODIUM CHLORIDE 0.9% FLUSH 10 ML FLUSH IV FLUSH SCH ×2 (08:48→21:44)
[2017-12-05] MEDS: PANTOPRAZOLE SOD 40 MG DELAYED RELEASE TAB PO SCH ×2 (08:48→09:00)
[2017-12-05] MEDS: CYCLOBENZAPRINE HCL 10 MG TAB PO SCH ×3 (08:48→17:20)
[2017-12-05] MEDS: CARVEDILOL 12.5 MG TAB PO SCH ×2 (08:48→21:43)
[2017-12-05] MEDS: INSULIN DETEMIR 100 UNITS/ML VIAL SQ SCH ×2 (08:48→21:00)
[2017-12-05] MEDS: SACUBITRIL/VALSARTAN 97 MG-103 MG TAB PO SCH ×2 (08:48→21:43)
[2017-12-05] MEDS: GABAPENTIN 300 MG CAP PO SCH ×3 (08:48→17:20)
[2017-12-05] MEDS: ISOSORBIDE MONONITRATE 30 MG CR TAB (IMDUR) PO SCH (08:51)
[2017-12-06] VITALS (8 sets, daily range): BP systolic 98–127; BP diastolic 51–68; PULSE 74–85; RESP 18–24; TEMP 97.7–99.3; O2SAT 94–96
[2017-12-06] MEDS: INSULIN ASPART SUPPLEMENTAL SCALE SQ SCH ×4 (00:52→18:02)
[2017-12-06] MEDS: BETHANECHOL CHL 10 MG TAB PO SCH ×3 (06:00→21:48)
[2017-12-06] MEDS: ISOSORBIDE MONONITRATE 30 MG CR TAB (IMDUR) PO SCH (06:34)
[2017-12-06] MEDS: cloNIDine HCL 0.3 MG TAB PO SCH ×3 (06:34→21:56)
[2017-12-06] MEDS: oxyCODONE/ACETAMINOPHEN 10 MG/325 MG TAB PO PRN ×4 (06:36→21:46)
[2017-12-06 07:22] LABS: BASOPHIL % 0.4 % (0.0-2.0); EOSINOPHIL # 0.1 TH/MM3 (0-0.4); EOSINOPHIL % 1.2 % (0.0-4.0); HEMATOCRIT 33.4 % (35.0-46.0); HEMOGLOBIN 10.9 GM/DL (11.6-15.3); LYMPH % 31.5 % (9.0-44.0); LYMPHOCYTE # 3.1 TH/MM3 (1.0-4.8); MEAN CELL VOLUME 86.7 FL (80.0-100.0); MEAN CORPUSCULAR HEMOGLOBIN 28.3 PG (27.0-34.0); MEAN CORPUSCULAR HGB CONC 32.7 % (32.0-36.0); MEAN PLATELET VOLUME 9.2 FL (7.0-11.0); MONO % 5.7 % (0.0-8.0); MONOCYTE # 0.6 TH/MM3 (0-0.9); NEUT % 61.2 % (16.0-70.0); PLATELET COUNT 239 TH/MM3 (150-450); RED BLOOD COUNT 3.85 MIL/MM3 (4.00-5.30); RED CELL DISTRIBUTION WIDTH 12.8 % (11.6-17.2); WHITE BLOOD COUNT 9.8 TH/MM3 (4.0-11.0)
[2017-12-06] MEDS: CHLORHEXIDINE 0.12% (ORAL KIT) 15 ML CUP MT SCH ×2 (08:00→20:00)
[2017-12-06] MEDS: SUCRALFATE 1 GM TAB PO SCH ×4 (08:00→21:00)
[2017-12-06] MEDS: INSULIN DETEMIR 100 UNITS/ML VIAL SQ SCH ×2 (08:52→21:56)
[2017-12-06] MEDS: PANTOPRAZOLE SOD 40 MG DELAYED RELEASE TAB PO SCH (09:00)
[2017-12-06] MEDS: CYCLOBENZAPRINE HCL 10 MG TAB PO SCH ×3 (09:00→18:00)
[2017-12-06] MEDS: SODIUM CHLORIDE 0.9% FLUSH 10 ML FLUSH IV FLUSH SCH ×2 (10:08→21:47)
[2017-12-06] MEDS: SACUBITRIL/VALSARTAN 97 MG-103 MG TAB PO SCH ×2 (10:09→21:46)
[2017-12-06] MEDS: CARVEDILOL 12.5 MG TAB PO SCH ×2 (10:09→21:46)
[2017-12-06] MEDS: GABAPENTIN 300 MG CAP PO SCH ×3 (10:10→18:03)
[2017-12-06] MEDS: HYDROCHLOROTHIAZIDE 25 MG TAB PO SCH (10:10)
--- NOTE | 2017-12-06 11:27 | HHI.PR ---
Subjective Remarks Patient reports she is feeling better. Left arm tingling is much improved. No longer experiencing left arm pain. Objective Vitals Vital Signs Date Time Temp Pulse Resp B/P (MAP) Pulse Ox O2 Delivery O2 Flow Rate FiO2 12/06/17 08:00 99.3 84 24 116/68 (84) 95 12/06/17 07:36 18 12/06/17 04:00 98.2 84 18 127/59 (81) 96 12/06/17 00:00 98.4 85 18 98/51 (67) 96 12/05/17 20:00 98.4 82 18 129/60 (83) 96 12/05/17 14:54 97.8 80 16 111/57 (75) 94 12/05/17 12:00 81 12/05/17 12:00 97.8 81 17 127/65 (85) 96 I/O 12/05/17 12/05/17 12/05/17 12/06/17 12/06/17 12/06/17 07:00 15:00 23:00 07:00 15:00 23:00 Intake Total 1000 ml 620 ml Output Total 2120 ml 700 ml 250 ml Balance -1120 ml -80 ml -250 ml Intake Oral 1000 ml 620 ml Output Urine Total 2100 ml 700 ml 250 ml Drainage Total 20 ml # Voids 1 Result Diagram: 12/06/17 0545 12/04/17 1142 Objective Remarks GENERAL: This is a well-nourished, well-developed patient, in no apparent distress. J collar in place. CARDIOVASCULAR: Normal rate and regular rhythm without murmurs, gallops, or rubs. RESPIRATORY: Good respiratory efforts. Breath sounds equal and clear to auscultation bilaterally. GASTROINTESTINAL: Abdomen soft, non-tender, non-distended. Normal active bowel sounds MUSCULOSKELETAL: Extremities without cyanosis, or edema. NEURO: Alert & Oriented x4 to person, place, time, situation. Equal strength. PSYCH: Appropriate mood and affect. Procedures Procedure #1: 1. C5-6 anterior cervical discectomy, resection posterior osteophytic disc complex, resection sequestered herniated nucleus pulposus, bilateral foraminotomies 2. C5-6 anterior interbody fusion, composite allograft bone 3. C5-6 anterior cervical instrumentation Procedure #2: Evacuation postoperative neck hematoma Direct repair left internal jugular defect A/P Assessment and Plan 42-year-old female with a history of diabetes, CHF(unknown EF), hyperlipidemia, Hypertension, chronic back pain, and CAD presented to the ED with complaints of pain and acute weakness involving the left arm. Patient underwent discectomy and fusion. She did have a postoperative neck hematoma, this had to be repaired and she was admitted to the ICU on the ventilator. Patient was weaned off the ventilator and she was transferred back to the floor.. Cervical disc disease with myelopathy. Patient presented with Left-upper extremity weakness secondary to C5-C6 degenerative disease causing mass-effect. -Appreciate neurosurgery following. Patient is status post discectomy and fusion. She has a drain in place -PT/OT -Pain management with Percocet. Did not tolerate [place]. Percocet is working. Angina, chronic, ACS ruled out -Cont home isosorbide Type 2 diabetes -Accu-Cheks with sliding scale insulin -Continue home Lantus -Diabetic diet Hypertension, chronic, currently uncontrolled, possibly due to pain -Continue home medications carvedilol, hydrochlorothiazide -Monitor vitals -PRNs if needed Chronic back pain -Resume home gabapentin CHF, chronic, unknown EF -Continue home dose entresto - Clonidine PRN HLD, chronic -Resume home medication atorvastatin -Iipid profile noted DVT prophylaxis: SCDs, patient is ambulating Aubrie Hawthorne MD December 06, 2017 11:27
--- NOTE | 2017-12-06 11:44 | HHI.NSPN ---
History Interval History 11/30: Ms. Rodney there is a 42-year-old lady who presented to the emergency room on the head porter baggage of 11/30/2017 with complaint of pain and weakness in the left arm for 2 days. The pain is a sharp radiating pain which goes from the fingers of the left hand up to the neck and shoulder. She does have a history of some chronic neck and back pain. Yesterday she felt that she may have had some weakness in the left leg. She has not had any other chest pain or shortness of breath or palpitations. The patient has a history of diabetes and hypertension. 12/01: The patient is awake in the chair when seen this morning. She is talking on her cellphone. She did have a headache earlier but none at present and she denied any dizziness. She complains of pain from the left lateral neck into the left shoulder going down into the left upper extremity to just below the elbow. She also says she has numbness to all extremities with the left side being worse. She reports left-sided weakness. Upon examination the has numbness to all extremities, worse on the left. She has left-sided muscle weakness. And she has tenderness to palpation of the left lateral neck, left shoulder and left upper extremity. She is forgetful of what she wants to say at times. 12/02: This morning the patient was awake and sitting up in bed tapping on her cellphone. When asked how her neck was this morning she replied "The same." Her affect was quite flat and she was reluctant to respond to questions. She stated that she was "ready to go home." She interacted only after being coaxed and only to a degree. She did complain of low back pain when her muscle strength was tested to the lower extremities. She had decreased muscle strength which was felt to be related to her lack of cooperation in being evaluated. As this practitioner was leaving the room she said something which was not heard. When asked what she said she replied, with what was felt to be disgust, "I'm not talkin' to you." 12/03: The patient went for a C5-6 anterior cervical discectomy with resection of a posterior osteophytic disc complex and sequestered herniated nucleus pulposus, as well as bilateral foraminotomies and anterior interbody fusion with cervical instrumentation. Post-operatively the patient was admitted to the [facility] unit. She was hypotensive post-operatively and returned to the operating room for evacuation of a postoperative neck haematoma and direct repair of a left internal jugular defect. She returned to the [facility] unit for further care and monitoring. 12/04: The patient was extubated this morning. Speech Therapy evaluated the patient and she passed a bedside swallow evaluation. When seen the patient is awake in bed talking with her Nurse. She says she is doing alright. She reports some surgical site pain. She reports numbness to the left anterior wrist into the hand. She has pain to both proximal upper extremities. Upon examination she does have improvement in her sensation and motor strength. 12/05/17: Patient denies neck pain. No radiculopathy. She states the paresthesias she had in her upper extremities is much better. Pt wants to go to floor states feeling well. This practitioner acts as a scribe for this note. 12/06: The patient is sitting up in the chair this morning. She endorses some numbness to the hands that is better than before surgery. She has none to the legs. She denies any difficulty with swallowing. Exam Results 12/04/17 12/04/17 12/05/17 12/05/17 12/06/17 12/06/17 06:00 18:00 06:00 18:00 06:00 18:00 Intake Total 880 ml 1000 ml 620 ml Output Total 650 ml 3660 ml 2120 ml 950 ml Balance -650 ml -2780 ml -1120 ml -330 ml Intake Oral 880 ml 1000 ml 620 ml Output Urine Total 620 ml 3650 ml 2100 ml 950 ml Drainage Total 30 ml 10 ml 20 ml # Voids 1 Vital Signs Date Time Temp Pulse Resp B/P (MAP) Pulse Ox O2 Delivery O2 Flow Rate FiO2 12/06/17 11:18 22 12/06/17 08:00 99.3 84 24 116/68 (84) 95 12/06/17 04:00 98.2 84 18 127/59 (81) 96 12/06/17 00:00 98.4 85 18 98/51 (67) 96 12/05/17 20:00 98.4 82 18 129/60 (83) 96 12/05/17 14:54 97.8 80 16 111/57 (75) 94 12/05/17 12:00 81 12/05/17 12:00 97.8 81 17 127/65 (85) 96 12/05/17 10:00 81 12/05/17 09:32 95 21 12/05/17 08:00 72 12/05/17 08:00 97.8 73 20 139/76 (97) 100 12/05/17 06:00 99.1 77 17 137/65 (89) 99 12/05/17 00:00 98.7 81 25 145/70 (95) 96 12/04/17 20:58 95 Nasal Cannula 4.00 12/04/17 20:00 98.9 93 26 158/87 (110) 96 12/04/17 18:31 86 147/70 12/04/17 18:00 82 12/04/17 16:00 88 12/04/17 16:00 98.7 88 25 142/71 (94) 99 Arterial Line 12/04/17 14:00 94 12/04/17 13:33 98 226/98 12/04/17 12:00 98.1 92 23 201/107 (138) 99 Arterial Line 12/04/17 12:00 92 12/04/17 08:30 Nasal Cannula 35 12/04/17 08:30 99 Nasal Cannula 4 12/04/17 08:00 84 12/04/17 08:00 40 12/04/17 08:00 98.0 84 14 180/88 (118) 100 12/04/17 04:00 35 12/04/17 04:00 99.0 77 14 114/58 (76) 100 12/04/17 00:19 100 35 12/04/17 00:00 99.0 80 14 101/52 (68) 100 12/04/17 00:00 35 12/03/17 20:18 99 35 12/03/17 20:00 99.0 83 14 123/60 (81) 99 12/03/17 20:00 40 12/03/17 17:48 98 40 12/03/17 16:00 98.6 83 14 153/74 (100) 100 153/74 (100) 12/03/17 16:00 40 12/03/17 15:45 85 14 113/55 (74) 99 12/03/17 15:30 86 14 114/58 (76) 99 12/03/17 15:30 100 100 12/03/17 15:15 86 14 104/50 (68) 99 12/03/17 15:00 91 14 126/69 (88) 100 12/03/17 14:45 86 14 103/54 (70) 98 12/03/17 14:30 85 14 104/53 (70) 98 Mechanical Ventilator 40 12/03/17 14:21 98.1 83 14 111/53 (72) 97 Mechanical Ventilator 40 12/03/17 12:45 92 18 158/89 (112) 93 12/03/17 12:39 78 14 86/47 (60) 97 12/03/17 12:31 78 86/40 12/03/17 12:30 78 14 93/46 (62) 97 12/03/17 12:30 98 40 12/03/17 12:25 79 12 73/39 (50) 94 Mechanical Ventilator 40 12/03/17 12:23 80 12 74/36 (49) 94 Mechanical Ventilator 40 12/03/17 12:23 40 12/03/17 11:47 Manual Cuff/Auscultation Lab, Micro, Other Results Laboratory Tests Test 12/03/17 14:55 12/04/17 04:57 12/04/17 11:42 12/06/17 05:45 Blood Gas Puncture Site ART LINE ART LINE Blood Gas Patient Temperature 98.6 98.6 Blood Gas HCO3 25 mmol/L 23 mmol/L Blood Gas Base Excess 0.1 mmol/L -1.4 mmol/L Blood Gas Oxygen Saturation 93 % 96 % Arterial Blood pH 7.37 7.35 Arterial Blood Partial Pressure CO2 44 mmHg 43 mmHg Arterial Blood Partial Pressure O2 86 mmHg 101 mmHg Arterial Blood Oxygen Content 15.6 Vol % 15.2 Vol % Arterial Blood Carboxyhemoglobin 1.1 % 1.2 % Arterial Blood Methemoglobin 1.4 % 1.0 % Blood Gas Hemoglobin 11.8 G/DL 11.2 G/DL Oxygen Delivery Device VENTILATOR VENTILATOR Blood Gas Ventilator Setting [facility]/AC14/500 SEE COMMENTS Blood Gas Inspired Oxygen 40 % 35 % White Blood Count 14.2 TH/MM3 9.8 TH/MM3 Red Blood Count 4.04 MIL/MM3 3.85 MIL/MM3 Hemoglobin 11.1 GM/DL 10.9 GM/DL Hematocrit 34.4 % 33.4 % Mean Corpuscular Volume 85.2 FL 86.7 FL Mean Corpuscular Hemoglobin 27.5 PG 28.3 PG Mean Corpuscular Hemoglobin Concent 32.3 % 32.7 % Red Cell Distribution Width 13.0 % 12.8 % Platelet Count 275 TH/MM3 239 TH/MM3 Mean Platelet Volume 9.3 FL 9.2 FL Neutrophils (%) (Auto) 77.3 % 61.2 % Lymphocytes (%) (Auto) 16.6 % 31.5 % Monocytes (%) (Auto) 5.9 % 5.7 % Eosinophils (%) (Auto) 0.1 % 1.2 % Basophils (%) (Auto) 0.1 % 0.4 % Neutrophils # (Auto) 11.0 TH/MM3 6.0 TH/MM3 Lymphocytes # (Auto) 2.4 TH/MM3 3.1 TH/MM3 Monocytes # (Auto) 0.8 TH/MM3 0.6 TH/MM3 Eosinophils # (Auto) 0.0 TH/MM3 0.1 TH/MM3 Basophils # (Auto) 0.0 TH/MM3 0.0 TH/MM3 CBC Comment DIFF FINAL DIFF FINAL Differential Comment Blood Urea Nitrogen 14 MG/DL Creatinine 0.84 MG/DL Random Glucose 185 MG/DL Calcium Level 8.5 MG/DL Sodium Level 137 MEQ/L Potassium Level 3.8 MEQ/L Chloride Level 103 MEQ/L Carbon Dioxide Level 26.7 MEQ/L Anion Gap 7 MEQ/L Estimat Glomerular Filtration Rate 91 ML/MIN Medical Decision Making Impression and Plan Impression: 1. C5-6 degenerative disc disease with at least moderate posterior osteophytic disc complex with significant spinal canal compromise. 2. Left cervical radiculopathy 3. Diabetes 4. Hypertension Postoperative Diagnosis: Procedure #1: (1) Cervical disc disease with myelopathy 1. C5-6 degenerative disc disease 2. Cervical stenosis 3. Cervical myelopathy 4. Sequestered C5-6 herniated nucleus pulposus Procedure #2: (1) Postoperative hemorrhage involving circulatory system Postoperative neck hematoma POD #3 () s/p: Procedure #1: 1. C5-6 anterior cervical discectomy, resection posterior osteophytic disc complex, resection sequestered herniated nucleus pulposus, bilateral foraminotomies 2. C5-6 anterior interbody fusion, composite allograft bone 3. C5-6 anterior cervical instrumentation Procedure #2: Evacuation postoperative neck hematoma Direct repair left internal jugular defect Plan: Primary management per Hospitalist. Neuro checks. Monitor RIVAS drain output. [place] J cervical collar at all times. Mobilise patient w/assistance as needed. Physical & Occupational Therapy eval & tx. Hold pharmacologic DVT prophylaxis. Mechanical DVT prophylaxis. Soft diet. [place] cervical collar for home to shower in. D/c RIVAS drain after pre-medicating patient. Discussed with patient that she is not able to smoke or take NSAIDs for at least three months to avoid any difficulty with healing. Patient is able to be discharged home from Neurosurgery's perspective. DISCHARGE INSTRUCTIONS: Wear the cervical collar at all times. It may briefly be taken off for personal hygiene. No movement of the neck. No lifting, bending, pushing, pulling or other strenuous activity. The dressing on over the surgical incision may be removed on . After taking the outer dressing off leave the steri-strips on and let them fall off on their own. No showering until the surgical incision is totally healed. Use the flesh- coloured cervical collar when showering. Take the pain medication as prescribed. Avoid taking any medication that contains NSAIDs (ibuprofen, naproxen, Motrin, Advil, Naprosyn) for at least three months. No smoking for at least three months. Follow up on Tuesday at 1:00 PM for a wound check. If you are unable to keep your appointment call the office at [phone] to reschedule your follow up appointment. Quang Lanier December 06, 2017 11:44
[2017-12-06] MEDS ORDERED: SACU1TAB4 PO (13:47)
[2017-12-06] MEDS ORDERED: OXYC1TAB36 PO (13:47)
--- NOTE | 2017-12-06 13:47 | HHI.DCPOC ---
Discharge Care Plan Diagnosis: (1) Cervical disc disease with myelopathy (2) Diabetes (3) Hypertension (4) Postoperative hemorrhage involving circulatory system (5) Left-sided weakness (6) Radiculopathy (7) Left arm pain Goals to Promote Your Health * To prevent worsening of your condition and complications * To maintain your health at the optimal level Directions to Meet Your Goals Take your medications as prescribed Follow your dietary instruction Follow activity as directed Keep your appointments as scheduled Take your immunizations and boosters as scheduled If your symptoms worsen call your PCP, if no PCP go to Urgent Care Center or Emergency Room Smoking is Dangerous to Your Health. Avoid second hand smoke Call the 24-hour hour crisis hotline for domestic abuse at Aubrie Hawthorne MD December 06, 2017 13:47
--- NOTE | 2017-12-06 13:51 | HHI.DS ---
Discharge Summary Admission Date December 01, 2017 at 13:16 Discharge Date: December 06, 2017 Admitting Diagnosis Left sided weakness and arm pain (1) Cervical disc disease with myelopathy ICD Code: M50.00 - Cervical disc disorder with myelopathy, unspecified cervical region (2) Postoperative hemorrhage involving circulatory system (3) Diabetes ICD Code: E11.9 - Type 2 diabetes mellitus without complications (4) Radiculopathy ICD Code: M54.10 - Radiculopathy, site unspecified (5) Hypertension ICD Code: I10 - Essential (primary) hypertension (6) Left-sided weakness ICD Code: R53.1 - Weakness Status: Acute (7) Left arm pain ICD Code: M79.602 - Pain in left arm Status: Acute Procedures Procedure #1: 1. C5-6 anterior cervical discectomy, resection posterior osteophytic disc complex, resection sequestered herniated nucleus pulposus, bilateral foraminotomies 2. C5-6 anterior interbody fusion, composite allograft bone 3. C5-6 anterior cervical instrumentation Procedure #2: Evacuation postoperative neck hematoma Direct repair left internal jugular defect Brief History - From Admission HPI from the admitting physician. 42-year-old female with a history of diabetes, hyperlipidemia, Hypertension, chronic back pain, and CAD presented to the ED with complaints of pain and weakness in her left arm that began yesterday morning. Patient states as the day went on she had weakness in her left leg and had a shooting pain in her left arm from fingers to her shoulder. She is extremely weak on examination. She complains of blurry vision occasionally and cervical burning neck pain. She states since February of 2017 she has been falling down a lot and her last fall was October 11. She denies any trauma to the left side. She does have chronic mid and lower back pain and follows with [facility] pain management in [place]. Her fiance helps her walk and at times she uses a walker. She has not been told she needs surgery as of yet. She complains of chest pain but states this is chronic and her last cath was clean. Home sugars run from 200-300 chronically, and BP stays in the 150s, she follows with Dr. Morales who has been trying to manage her BP and diabetes. She denies any sob, fever or chills. CBC/BMP: 12/06/17 0545 12/04/17 1142 Significant Findings Laboratory Tests Test 12/03/17 14:55 12/04/17 04:57 12/04/17 11:42 12/06/17 05:45 Arterial Blood pH 7.37 (7.380-7.420) 7.35 (7.380-7.420) Arterial Blood Partial Pressure CO2 44 mmHg (38-42) 43 mmHg (38-42) Blood Gas Hemoglobin 11.8 G/DL (12.0-16.0) 11.2 G/DL (12.0-16.0) White Blood Count 14.2 TH/MM3 (4.0-11.0) Hemoglobin 11.1 GM/DL (11.6-15.3) 10.9 GM/DL (11.6-15.3) Hematocrit 34.4 % (35.0-46.0) 33.4 % (35.0-46.0) Neutrophils (%) (Auto) 77.3 % (16.0-70.0) Neutrophils # (Auto) 11.0 TH/MM3 (1.8-7.7) Random Glucose 185 MG/DL (74-106) Red Blood Count 3.85 MIL/MM3 (4.00-5.30) Imaging Last Impressions Chest X-Ray 12/03/17 0000 Signed Impressions: CONCLUSION: Tip of the endotracheal tube in good position. Grossly clear lungs. Cervical Spine X-Ray 12/03/17 0000 Signed Impressions: CONCLUSION: Good position and alignment on this postoperative study. Cervical Spine CT 11/30/17 0241 Signed Impressions: CONCLUSION: Degenerative disc change at the C5-6 level with posterior disc oste ophyte complex greatest in the right parasagittal region. There is mass effect on the anterior thecal sac and comes in close contact with the anterior cord wh ich is not well delineated. Head CT 11/30/17 0152 Signed Impressions: CONCLUSION: 1. Stable unremarkable noncontrast head CT. Cervical Spine MRI 11/30/17 0000 Signed Impressions: CONCLUSION: Moderate right lateral recess disc protrusion at the C5-C6 level with osteophyt ic ridging. Brain MRI 11/30/17 0000 Signed Impressions: CONCLUSION: 1. No acute intracranial abnormalities. Specifically no recent infarction. Muc osal thickening right mastoid air cells. PE at Discharge GENERAL: This is a well-nourished, well-developed patient, in no apparent distress. J collar in place. CARDIOVASCULAR: Normal rate and regular rhythm without murmurs, gallops, or rubs. RESPIRATORY: Good respiratory efforts. Breath sounds equal and clear to auscultation bilaterally. GASTROINTESTINAL: Abdomen soft, non-tender, non-distended. Normal active bowel sounds MUSCULOSKELETAL: Extremities without cyanosis, or edema. NEURO: Alert & Oriented x4 to person, place, time, situation. Equal strength. PSYCH: Appropriate mood and affect. Hospital Course 42-year-old female with a history of diabetes, CHF(unknown EF), hyperlipidemia, Hypertension, chronic back pain, and CAD presented to the ED with complaints of pain and acute weakness involving the left arm. Patient underwent discectomy and fusion. She did have a postoperative neck hematoma, this had to be repaired and she was admitted to the ICU on the ventilator. Patient was weaned off the ventilator and she was transferred back to the floor. Evaluation and treatment course detailed below: Cervical disc disease with myelopathy. Patient presented with Left-upper extremity weakness secondary to C5-C6 degenerative disease causing mass-effect. -Appreciate neurosurgery following. Patient is status post discectomy and fusion. Drain removed and patient was cleared by neurosurgery for discharge. -PT/OT -Pain management with Percocet. Did not tolerate [place]. Percocet is working. Angina, chronic, ACS ruled out -Cont home isosorbide Type 2 diabetes -Accu-Cheks with sliding scale insulin -Continue home Lantus -Diabetic diet Hypertension, chronic -Continue home medications carvedilol, hydrochlorothiazide Chronic back pain -Resume home gabapentin CHF, chronic, unknown EF -Continue home dose entresto HLD, chronic -Resume home medication atorvastatin -Iipid profile noted Pt Condition on Discharge: Good Discharge Disposition: Disch w/ Home Health Serv Discharge Time: <= 30 minutes Discharge Instructions DIET: Follow Instructions for: Heart Healthy Diet Speech Therapy-Diet Recommends: Mechanical Soft Activities you can perform: Regular-No Restrictions Follow up Referrals: Neurosurgery with Karri Alcantara MD New Medications: Walker with Front Wheels (Walker with Front Wheels) 1 Mis Mis EA .XX DIRECTED, #1 0 Refills Oxycodone HCl/Acetaminophen (Oxycodone-Acetaminophen 10-325) 10 Mg-325 Mg Tablet 1 TAB PO Q4H PRN for PAIN GREATER THAN 5, #20 TAB Changed Medications: Sacubitril-Valsartan (Entresto) 97-103 Mg Tab 1 TAB PO DAILY for Heart Failure, #30 TAB 0 Refills (Changed from: Sacubitril- Valsartan (Entresto) 49-51 Mg Tab 1 Tab PO DAILY Heart Failure #30 TAB Ref 0) Continued Medications: Atorvastatin (Atorvastatin) 40 Mg Tab 40 MG PO HS for Cholesterol Management, #30 TAB 0 Refills Bethanechol (Urecholine) 10 Mg Tab 10 MG PO Q8HR for Gastroparesis, #90 TAB Carvedilol (Carvedilol) 25 Mg Tab 25 MG BID, #60 TAB 0 Refills Cyclobenzaprine (Flexeril) 10 Mg Tab 10 MG PO TID for Muscle Spasm, #90 TAB 0 Refills Gabapentin (Gabapentin) 300 Mg Cap 300 MG PO TID, #90 CAP 0 Refills Hydrochlorothiazide (Hydrochlorothiazide) 25 Mg Tab 25 MG PO DAILY, #30 TAB 0 Refills Insulin Aspart Inj (Novolog Inj) 1,000 Unit/10 Ml Vial 3 UNITS SQ TID for Blood Sugar Management, #1 INJECTION 0 Refills Insulin Glargine Inj (Lantus Inj) 1,000 Unit/10 Ml Vial 25 UNITS SQ AC BREAKFAST for Blood Sugar Management, VIAL 0 Refills Insulin Glargine Inj (Lantus Inj) 1,000 Unit/10 Ml Vial 10 UNITS SQ HS for Blood Sugar Management, VIAL 0 Refills Isosorbide Mononitrate ER (Isosorbide Mononitrate ER) 30 Mg Sammie 30 MG PO DAILY@07 for Angina MDD ONE for 30 Days, #30 TAB 0 Refills Metformin (Metformin) 500 Mg Tab 500 MG PO BIDPC for Blood Sugar Management, #60 TAB 0 Refills Pantoprazole (Pantoprazole) 40 Mg Tab 40 MG PO DAILY for Reflux, #30 TAB 0 Refills Sucralfate (Carafate) 1 Gm Tab 1 GM PO ACHS for gastritis, #30 TAB Aubrie Hawthorne MD December 06, 2017 13:51
--- NOTE | 2017-12-06 13:53 | HHI.FF ---
Face to Face Verification Diagnosis: (1) Cervical disc disease with myelopathy (2) Postoperative hemorrhage involving circulatory system (3) Radiculopathy (4) Hypertension (5) Diabetes (6) Left-sided weakness Physical Therapy Order: Evaluate and Treat, Improve ambulation, Strength and gait training Home Health Nursing Order: Medical education Wound care and dressing changes Nursing assessment with vital signs I have seen patient Elias Rodney on 12/06/17. My clinical findings support the need for the requested home health care services because: Need for psychosocial assistance I certify that my clinical findings support that this patient is homebound because: Need for psychosocial assistance Aubrie Hawthorne MD December 06, 2017 13:52
[2017-12-07] VITALS: BP 111/78; PULSE 76; RESP 18; TEMP 98.4; O2SAT 99
[2017-12-07] MEDS: INSULIN ASPART SUPPLEMENTAL SCALE SQ SCH ×3 (00:11→12:00)
[2017-12-07] MEDS: oxyCODONE/ACETAMINOPHEN 10 MG/325 MG TAB PO PRN ×3 (02:57→11:14)
[2017-12-07 04:00] VITALS: BP 134/61; PULSE 74; RESP 18; TEMP 97.4; O2SAT 96
[2017-12-07] MEDS: BETHANECHOL CHL 10 MG TAB PO SCH (06:00)
[2017-12-07] MEDS: cloNIDine HCL 0.3 MG TAB PO SCH (06:48)
[2017-12-07] MEDS: ISOSORBIDE MONONITRATE 30 MG CR TAB (IMDUR) PO SCH (06:48)
[2017-12-07] MEDS: SUCRALFATE 1 GM TAB PO SCH ×2 (08:00→12:00)
[2017-12-07] MEDS: CHLORHEXIDINE 0.12% (ORAL KIT) 15 ML CUP MT SCH (08:00)
[2017-12-07] MEDS: INSULIN DETEMIR 100 UNITS/ML VIAL SQ SCH (08:00)
[2017-12-07 08:01] VITALS: BP 118/65; PULSE 70; RESP 20; TEMP 97.9; O2SAT 96
[2017-12-07] MEDS: CARVEDILOL 12.5 MG TAB PO SCH (09:00)
[2017-12-07] MEDS: PANTOPRAZOLE SOD 40 MG DELAYED RELEASE TAB PO SCH (09:00)
[2017-12-07] MEDS: CYCLOBENZAPRINE HCL 10 MG TAB PO SCH (09:00)
[2017-12-07] MEDS: SODIUM CHLORIDE 0.9% FLUSH 10 ML FLUSH IV FLUSH SCH (09:00)
[2017-12-07 09:33] VITALS: O2SAT 100
[2017-12-07] MEDS: SACUBITRIL/VALSARTAN 97 MG-103 MG TAB PO SCH (11:08)
[2017-12-07] MEDS: GABAPENTIN 300 MG CAP PO SCH (11:09)
[2017-12-07] MEDS: HYDROCHLOROTHIAZIDE 25 MG TAB PO SCH (11:09)
== END 2017-12-07 12:17 | disposition home health service (06) | DRG 471 ==
LOC: NEPE 00:47 → NEDA 03:46 → N05B 06:35 → OBSVTOIN 12-01 13:16 → N05B 12-02 15:14 → N03B 12-03 14:02 → N03A 12-03 16:37 → N05B 12-05 13:52
PROVIDERS: ADMIT Family Medicine; ATTEND Family Medicine
PROC: 0RT30ZZ Resection of Cervical Vertebral Disc, Open Approach (ICD-10-PCS; 2017-12-03)
PROC: 05QN0ZZ Repair Left Internal Jugular Vein, Open Approach (ICD-10-PCS; 2017-12-03)
PROC: 0JC50ZZ Extirpation of Matter from Left Neck Subcutaneous Tissue and Fascia, Open Approach (ICD-10-PCS; 2017-12-03)
PROC: 0BH17EZ Insertion of Endotracheal Airway into Trachea, Via Natural or Artificial Opening (ICD-10-PCS; 2017-12-03)
PROC: 5A1935Z Respiratory Ventilation, Less than 24 Consecutive Hours (ICD-10-PCS; 2017-12-03)
PROC: 0RG10K0 Fusion of Cervical Vertebral Joint with Nonautologous Tissue Substitute, Anterior Approach, Anterior Column, Open Approach (ICD-10-PCS; principal; 2017-12-03 08:10)
DX: M50.022 Cervical disc disorder at C5-C6 level with myelopathy (principal); J96.00 Acute respiratory failure, unspecified whether with hypoxia or hypercapnia; I11.0 Hypertensive heart disease with heart failure; I50.9 Heart failure, unspecified; I97.52 Accidental puncture and laceration of a circulatory system organ or structure during other procedure; L76.32 Postprocedural hematoma of skin and subcutaneous tissue following other procedure; I42.9 Cardiomyopathy, unspecified; I25.119 Atherosclerotic heart disease of native coronary artery with unspecified angina pectoris; M25.78 Osteophyte, vertebrae; Y83.8 Other surgical procedures as the cause of abnormal reaction of the patient, or of later complication, without mention of misadventure at the time of the procedure; E78.5 Hyperlipidemia, unspecified; G89.29 Other chronic pain; E11.65 Type 2 diabetes mellitus with hyperglycemia; M54.5 Low back pain; F17.210 Nicotine dependence, cigarettes, uncomplicated; F12.90 Cannabis use, unspecified, uncomplicated; R26.2 Difficulty in walking, not elsewhere classified; M48.02 Spinal stenosis, cervical region; I95.81 Postprocedural hypotension; Z79.4 Long term (current) use of insulin
CPT/HCPCS: 31500; 70450; 70551; 71045; 72020; 72125; 72141; 76000; 76937; 80048; 80053; 80061; 80307; 81001; 82805; 82948; 83690; 83735; 84484; 84703; 85025; 85610; 85730; 93005; 94002; 94003; 94150; 94640; C1713; G8987-GP; G8988-GP; J0131; J0690; J1100; J1170; J1580; J1815; J1940; J2270; J2370; J2405; J3010; J7030; J7050; J7120; L0150

== ENCOUNTER 2017-12-13 12:04 | Emergency (ER) | payer MEDICAID ==
[~2017-12-13] VITALS: Ht 175.3 cm; Wt 111.5 kg
[~2017-12-13 12:04] MED LIST changes: +OXYC1TAB36 PO; +SACU1TAB4 PO; -SACU1TAB7 PO; +WALKER WHEELS/F1 MIS
[2017-12-13] MEDS ORDERED: IOHEXOL 350 MG/ML 10 ML VIAL (for RAD DIAG) IVCONTRAST ONE (12:05)
[2017-12-13 12:11] VITALS: BP 188/98; PULSE 92; RESP 20; O2SAT 99
--- NOTE | 2017-12-13 12:24 | PD ---
HPI Chief Complaint: Chest Pain Time Seen by Provider: 12:12 Travel History International Travel<30 days: No Contact w/Intl Traveler<30days: No Traveled to known affect area: No History of Present Illness HPI 42-year-old female with history of CAD, CHF, diabetes, presents emergency department for evaluation of intermittent chest pain, pleuritic in nature, exacerbated with movement or deep breath that has been occurring since she had surgery on her neck. Patient has history of recent anterior cervical fusion. She states since the surgery she has been having this intermittent pain. She denies any nausea or vomiting. She does intermittently get short of breath but this is alleviated by releasing her collar and she feels it is more related to emotions and anxiety. Patient denies any fever chills. She has no history of PE or DVT. Patient does have a artist color separation in [facility]. She recently was admitted to our chest pain center and recently had a cardiac catheterization completed at [facility]. This was negative for any disease. Patient has no other symptoms to report at this time. PFSH Past Medical History Blood Disorders: No Cancer: No Cardiac Catheterization: Yes (jun 2018) Cardiovascular Problems: Yes High Cholesterol: Yes Congestive Heart Failure: Yes Cerebrovascular Accident: No Diabetes: Yes Diminished Hearing: No Endocrine: Yes Genitourinary: No Hypertension: Yes Musculoskeletal: Yes (LOW BACK PAIN) Neurologic: Yes Psychiatric: No Reproductive: No Respiratory: No Migraines: Yes Myocardial Infarction: No Renal Failure: No Sickle Cell Disease: No Ulcer: No : 2 Para: 2 Miscarriage: 0 : 0 Past Surgical History Abdominal Surgery: No Cardiac Surgery: No Section: Yes (X 2) Coronary Artery Bypass Graft: No Ear Surgery: No Endocrine Surgery: No Eye Surgery: No Genitourinary Surgery: Yes Gynecologic Surgery: Yes ( x2) Oral Surgery: No Thoracic Surgery: No Other Surgery: Yes Social History Alcohol Use: Yes (SOCIAL) Tobacco Use: Yes (1PP WEEK) Substance Use: No (pt denies) Allergies-Medications (Allergen,Severity, Reaction): Coded Allergies: No Known Allergies (Verified Allergy, Unknown, 12/13/17) Reported Meds & Prescriptions Reported Meds & Active Scripts Active Oxycodone-Acetaminophen 10-325 (Oxycodone HCl/Acetaminophen) 10 Mg-325 Mg Tablet 1 Tab PO Q4H PRN Entresto (Sacubitril-Valsartan) 97-103 Mg Tab 1 Tab PO DAILY Walker with Front Wheels (Device) 1 Mis Mis Ea .XX DIRECTED Isosorbide Mononitrate ER (Isosorbide Mononitrate) 30 Mg Sammie 30 Mg PO DAILY@ 07 MDD ONE 30 Days Urecholine (Bethanechol Chloride) 10 Mg Tab 10 Mg PO Q8HR Pantoprazole (Pantoprazole Sodium) 40 Mg Tab 40 Mg PO DAILY Carafate (Sucralfate) 1 Gm Tab 1 Gm PO ACHS Reported Lantus Inj (Insulin Glargine) 1,000 Unit/10 Ml Vial 10 Units SQ HS Lantus Inj (Insulin Glargine) 1,000 Unit/10 Ml Vial 25 Units SQ AC BREAKFAST Novolog Inj (Insulin Aspart) 1,000 Unit/10 Ml Vial 3 Units SQ TID Aspirin 81 Mg Chew 81 Mg CHEW DAILY Atorvastatin (Atorvastatin Calcium) 40 Mg Tab 40 Mg PO HS Flexeril (Cyclobenzaprine HCl) 10 Mg Tab 10 Mg PO TID Carvedilol 25 Mg Tab 25 Mg BID Metformin (Metformin HCl) 500 Mg Tab 500 Mg PO BIDPC Gabapentin 300 Mg Cap 300 Mg PO TID Hydrochlorothiazide 25 Mg Tab 25 Mg PO DAILY Review of Systems Except as stated in HPI: all other systems reviewed are Neg Physical Exam Narrative GENERAL: Well-nourished female patient, no acute distress SKIN: Focused skin assessment warm/dry. Horizontal incision site on the anterior neck, well approximated, Steri-Strips in place. No erythema or edema. HEAD: Atraumatic. Normocephalic. EYES: Pupils equal and round. No scleral icterus. No injection or drainage. ENT: No nasal bleeding or discharge. Mucous membranes pink and moist. NECK: Trachea midline. No JVD. Cervical collar is in place CARDIOVASCULAR: Elevated rate and rhythm. No murmur appreciated. RESPIRATORY: No accessory muscle use. Diminished likely due to girth to auscultation. Breath sounds equal bilaterally. GASTROINTESTINAL: Abdomen soft, non-tender, nondistended. Hepatic and splenic margins not palpable. MUSCULOSKELETAL: No obvious deformities. No clubbing. No cyanosis. No edema. NEUROLOGICAL: Awake and alert. No obvious cranial nerve deficits. Motor grossly within normal limits. Normal speech. PSYCHIATRIC: Appropriate mood and affect; insight and judgment normal. Data Data Last Documented VS Vital Signs Date Time Temp Pulse Resp B/P (MAP) Pulse Ox O2 Delivery O2 Flow Rate FiO2 12/13/17 16:05 12/13/17 13:27 86 18 99 Room Air 12/13/17 12:32 98.3 Orders Orders Electrocardiogram (12/13/17 12:21) Basic Metabolic Panel (Bmp) (12/13/17 12:21) Ckmb (Isoenzyme) Profile (12/13/17 12:21) Complete Blood Count With Diff (12/13/17 12:21) Magnesium (Mg) (12/13/17 12:21) Prothrombin Time / Inr (Pt) (12/13/17 12:21) Act Partial Throm Time (Ptt) (12/13/17 12:21) Troponin I (12/13/17 12:21) Lipase (12/13/17 12:21) Ecg Monitoring (12/13/17 12:21) Bilateral Bp Monitoring (12/13/17 12:21) Iv Access Insert/Monitor (12/13/17 12:21) Oximetry (12/13/17 12:21) Oxygen Administration (12/13/17 12:21) Sodium Chloride 0.9% Flush (Ns Flush) (12/13/17 12:30) Nitroglycerin Sl (Nitrostat Sl) (12/13/17 12:30) Ct Pulmonary Angiogram (12/13/17 12:21) Chest, Pa & Lat (12/13/17 12:21) Iohexol 350 Inj (Omnipaque 350 Inj) (12/13/17 12:05) Blood Glucose (12/13/17 14:50) Ed Discharge Order (12/13/17 15:27) Labs Laboratory Tests Test 12/13/17 12:45 White Blood Count 8.4 TH/MM3 Red Blood Count 4.19 MIL/MM3 Hemoglobin 11.6 GM/DL Hematocrit 36.0 % Mean Corpuscular Volume 85.9 FL Mean Corpuscular Hemoglobin 27.8 PG Mean Corpuscular Hemoglobin Concent 32.3 % Red Cell Distribution Width 12.7 % Platelet Count 282 TH/MM3 Mean Platelet Volume 9.4 FL Neutrophils (%) (Auto) 69.9 % Lymphocytes (%) (Auto) 22.4 % Monocytes (%) (Auto) 6.0 % Eosinophils (%) (Auto) 1.3 % Basophils (%) (Auto) 0.4 % Neutrophils # (Auto) 5.8 TH/MM3 Lymphocytes # (Auto) 1.9 TH/MM3 Monocytes # (Auto) 0.5 TH/MM3 Eosinophils # (Auto) 0.1 TH/MM3 Basophils # (Auto) 0.0 TH/MM3 CBC Comment DIFF FINAL Differential Comment Prothrombin Time 10.1 SEC Prothromb Time International Ratio 1.0 RATIO Activated Partial Thromboplast Time 26.3 SEC Blood Urea Nitrogen 8 MG/DL Creatinine 0.81 MG/DL Random Glucose 413 MG/DL Calcium Level 8.8 MG/DL Magnesium Level 1.9 MG/DL Sodium Level 138 MEQ/L Potassium Level 4.1 MEQ/L Chloride Level 104 MEQ/L Carbon Dioxide Level 26.4 MEQ/L Anion Gap 8 MEQ/L Estimat Glomerular Filtration Rate 95 ML/MIN Total Creatine Kinase 39 U/L Troponin I LESS THAN 0.02 NG/ML Lipase 74 U/L MDM Medical Decision Making Medical Screen Exam Complete: Yes Emergency Medical Condition: Yes Medical Record Reviewed: Yes Differential Diagnosis Pleuritic pain versus costochondritis versus ACS versus chest wall pain Narrative Course 42-year-old female presents emergency department for evaluation of chest pain. Patient appears without distress. Her vital signs are stable. Patient was recently admitted to her chest pain center. She also has a artist color separation who follows her in [facility]. Due to recent surgery, CTPA will be done to ensure no PE. Laboratory Tests Test 12/13/17 12:45 White Blood Count 8.4 TH/MM3 Red Blood Count 4.19 MIL/MM3 Hemoglobin 11.6 GM/DL Hematocrit 36.0 % Mean Corpuscular Volume 85.9 FL Mean Corpuscular Hemoglobin 27.8 PG Mean Corpuscular Hemoglobin Concent 32.3 % Red Cell Distribution Width 12.7 % Platelet Count 282 TH/MM3 Mean Platelet Volume 9.4 FL Neutrophils (%) (Auto) 69.9 % Lymphocytes (%) (Auto) 22.4 % Monocytes (%) (Auto) 6.0 % Eosinophils (%) (Auto) 1.3 % Basophils (%) (Auto) 0.4 % Neutrophils # (Auto) 5.8 TH/MM3 Lymphocytes # (Auto) 1.9 TH/MM3 Monocytes # (Auto) 0.5 TH/MM3 Eosinophils # (Auto) 0.1 TH/MM3 Basophils # (Auto) 0.0 TH/MM3 CBC Comment DIFF FINAL Differential Comment Prothrombin Time 10.1 SEC Prothromb Time International Ratio 1.0 RATIO Activated Partial Thromboplast Time 26.3 SEC Blood Urea Nitrogen 8 MG/DL Creatinine 0.81 MG/DL Random Glucose 413 MG/DL Calcium Level 8.8 MG/DL Magnesium Level 1.9 MG/DL Sodium Level 138 MEQ/L Potassium Level 4.1 MEQ/L Chloride Level 104 MEQ/L Carbon Dioxide Level 26.4 MEQ/L Anion Gap 8 MEQ/L Estimat Glomerular Filtration Rate 95 ML/MIN Total Creatine Kinase 39 U/L Troponin I LESS THAN 0.02 NG/ML Lipase 74 U/L Last Impressions Chest X-Ray 12/13/17 1221 Signed Impressions: CONCLUSION: Negative examination. CT Angiography 12/13/17 1221 Signed Impressions: CONCLUSION: 1. This study is negative for pulmonary embolism. Findings are discussed and reviewed with my attending physician. She has also assessed the patient. patient will be discharged home at this time to follow-up outpatient with her primary care provider and artist color separation. Patient agrees to return immediately with acute worsening symptoms. Diagnosis Primary Impression: Chest wall pain Referrals: [facility] [employer] Primary Care Physician Patient Instructions: Chest Pain (ED), General Instructions Additional Instructions: Follow-up with your primary care provider Continue medication as already prescribed Return immediately with acute worsening symptoms Med/Other Pt SpecificInfo: No Change to Meds Disposition: 01 DISCHARGE HOME Condition: Stable MylaAnel JUAN RAMON Dec 13, 2017 12:24
[2017-12-13 12:29] VITALS: BP 188/98; PULSE 88; RESP 20; TEMP 98.3; O2SAT 98
[2017-12-13 12:30] VITALS: BP 188/98; PULSE 88; RESP 20; TEMP 98.3; O2SAT 98
[2017-12-13] MEDS ORDERED: SODIUM CHLORIDE 0.9% FLUSH 10 ML FLUSH IVF PRN (12:30)
[2017-12-13 12:32] VITALS: BP_SYST 180; BP_SYST 188; BP_DIAS 90; BP_DIAS 98; PULSE 86; RESP 20; TEMP 98.3; O2SAT 98
[2017-12-13] MEDS: NITROGLYCERIN 0.4 MG SL 25 TABS/BTL SL SCH ×3 (12:40→13:38)
[2017-12-13 13:19] LABS: AUTOMATED NEUTROPHIL # 5.8 TH/MM3 (1.8-7.7); BASOPHIL % 0.4 % (0.0-2.0); EOSINOPHIL # 0.1 TH/MM3 (0-0.4); EOSINOPHIL % 1.3 % (0.0-4.0); HEMOGLOBIN 11.6 GM/DL (11.6-15.3); LYMPH % 22.4 % (9.0-44.0); LYMPHOCYTE # 1.9 TH/MM3 (1.0-4.8); MEAN CELL VOLUME 85.9 FL (80.0-100.0); MEAN CORPUSCULAR HEMOGLOBIN 27.8 PG (27.0-34.0); MEAN CORPUSCULAR HGB CONC 32.3 % (32.0-36.0); MEAN PLATELET VOLUME 9.4 FL (7.0-11.0); MONOCYTE # 0.5 TH/MM3 (0-0.9); NEUT % 69.9 % (16.0-70.0); PLATELET COUNT 282 TH/MM3 (150-450); RED BLOOD COUNT 4.19 MIL/MM3 (4.00-5.30); RED CELL DISTRIBUTION WIDTH 12.7 % (11.6-17.2); WHITE BLOOD COUNT 8.4 TH/MM3 (4.0-11.0)
[2017-12-13 13:27] VITALS: BP 166/84; PULSE 86; RESP 18; O2SAT 99
[2017-12-13 13:34] LABS: PROTHROMBIN TIME - PATIENT 10.1 SEC (9.8-11.6)
[2017-12-13 13:59] LABS: BICARBONATE 26.4 MEQ/L (21.0-32.0); BLOOD UREA NITROGEN 8 MG/DL (7-18); CALCIUM 8.8 MG/DL (8.5-10.1); CHLORIDE 104 MEQ/L (98-107); CREATININE 0.81 MG/DL (0.50-1.00); GLOMERULAR FILTRATION RATE 95 ML/MIN (>89); GLUCOSE,RANDOM 413 MG/DL (74-106); MAGNESIUM 1.9 MG/DL (1.5-2.5); SODIUM (NA) 138 MEQ/L (136-145); TROPONIN I LESS THAN 0.02 NG/ML (0.02-0.05)
--- NOTE | 2017-12-13 14:25 | RADRPT ---
EXAM DATE: 12/13/2017 1:04 PM EDT AGE/SEX: 42 years / Female INDICATIONS: Chest pain for one year, short of breath, back pain CLINICAL DATA: This is the patient's initial encounter. Patient reports that signs and symptoms have been present for > 1 year and indicates a pain score of 10/10. MEDICAL/SURGICAL HISTORY: Congestive heart failure. Hypertension. cardiac catheterization Jorden arean section. cervical spine surgery [place] [facility] [place]. . FINDINGS: PA and lateral views of the chest demonstrate the lungs to be symmetrically aerated without evidence of mass, infiltrate or effusion. The cardiomediastinal contours are unremarkable. Osseous structures are intact. CONCLUSION: Negative examination. Electronically signed by: Alex Vidal MD 12/13/2017 2:23 PM EDT
--- NOTE | 2017-12-13 14:57 | RADRPT ---
EXAM DATE: 12/13/2017 2:45 PM EDT AGE/SEX: 42 years / Female INDICATIONS: Chest pain off and on since neck pain with short of breath. CLINICAL DATA: This is the patient's initial encounter. Patient reports that signs and symptoms have been present for 1 day and indicates a pain score of 5/10. MEDICAL/SURGICAL HISTORY: Cardiovascular disease. Hypertension. Diabetes mellitus type I. Fusion, cervical. RADIATION DOSE: 26.97 CTDI (mGy) COMPARISON: No prior [facility] exams available for comparison. TECHNIQUE: Volumetric scanning was performed using a multi-row detector CT scanner during bolus infu catracho of 70 ml Omnipaque 350 (iohexol) nonionic water-soluble contrast as a single exam dose. The jeremias a was post processed with a variety of visualization algorithms including full volume maximum intensi ty projection and sliding thin slab reformation. Using automated exposure control and adjustment of the mA and/or kV according to patient size, radiation dose was kept as low as reasonably achievable t o obtain optimal diagnostic quality images. FINDINGS: Pulmonary Arteries: No filling defects are seen in the pulmonary arteries out to the subsegmental ve ssels. The left and right pulmonary arteries are normal in diameter. Lung: No infiltrates seen. Effusion: None. Mediastinum: No evidence of mediastinal or hilar adenopathy. Other: The axilla is unremarkable. CONCLUSION: 1. This study is negative for pulmonary embolism. Electronically signed by: Alex Vidal MD 12/13/2017 2:56 PM EDT
--- NOTE | 2017-12-13 15:33 | PD ---
Physical Exam Date Seen by Provider: Dec 13, 2017 Data Data Last Documented VS Vital Signs Date Time Temp Pulse Resp B/P (MAP) Pulse Ox O2 Delivery O2 Flow Rate FiO2 12/13/17 13:27 86 18 166/84 (111) 99 Room Air 12/13/17 12:32 98.3 Orders Orders Electrocardiogram (12/13/17 12:21) Basic Metabolic Panel (Bmp) (12/13/17 12:21) Ckmb (Isoenzyme) Profile (12/13/17 12:21) Complete Blood Count With Diff (12/13/17 12:21) Magnesium (Mg) (12/13/17 12:21) Prothrombin Time / Inr (Pt) (12/13/17 12:21) Act Partial Throm Time (Ptt) (12/13/17 12:21) Troponin I (12/13/17 12:21) Lipase (12/13/17 12:21) Ecg Monitoring (12/13/17 12:21) Bilateral Bp Monitoring (12/13/17 12:21) Iv Access Insert/Monitor (12/13/17 12:21) Oximetry (12/13/17 12:21) Oxygen Administration (12/13/17 12:21) Sodium Chloride 0.9% Flush (Ns Flush) (12/13/17 12:30) Nitroglycerin Sl (Nitrostat Sl) (12/13/17 12:30) Ct Pulmonary Angiogram (12/13/17 12:21) Chest, Pa & Lat (12/13/17 12:21) Iohexol 350 Inj (Omnipaque 350 Inj) (12/13/17 12:05) Blood Glucose (12/13/17 14:50) Ed Discharge Order (12/13/17 15:27) Labs Laboratory Tests Test 12/13/17 12:45 White Blood Count 8.4 TH/MM3 Red Blood Count 4.19 MIL/MM3 Hemoglobin 11.6 GM/DL Hematocrit 36.0 % Mean Corpuscular Volume 85.9 FL Mean Corpuscular Hemoglobin 27.8 PG Mean Corpuscular Hemoglobin Concent 32.3 % Red Cell Distribution Width 12.7 % Platelet Count 282 TH/MM3 Mean Platelet Volume 9.4 FL Neutrophils (%) (Auto) 69.9 % Lymphocytes (%) (Auto) 22.4 % Monocytes (%) (Auto) 6.0 % Eosinophils (%) (Auto) 1.3 % Basophils (%) (Auto) 0.4 % Neutrophils # (Auto) 5.8 TH/MM3 Lymphocytes # (Auto) 1.9 TH/MM3 Monocytes # (Auto) 0.5 TH/MM3 Eosinophils # (Auto) 0.1 TH/MM3 Basophils # (Auto) 0.0 TH/MM3 CBC Comment DIFF FINAL Differential Comment Prothrombin Time 10.1 SEC Prothromb Time International Ratio 1.0 RATIO Activated Partial Thromboplast Time 26.3 SEC Blood Urea Nitrogen 8 MG/DL Creatinine 0.81 MG/DL Random Glucose 413 MG/DL Calcium Level 8.8 MG/DL Magnesium Level 1.9 MG/DL Sodium Level 138 MEQ/L Potassium Level 4.1 MEQ/L Chloride Level 104 MEQ/L Carbon Dioxide Level 26.4 MEQ/L Anion Gap 8 MEQ/L Estimat Glomerular Filtration Rate 95 ML/MIN Total Creatine Kinase 39 U/L Troponin I LESS THAN 0.02 NG/ML Lipase 74 U/L [facility] Medical Record Reviewed: Yes Supervised Visit with DIAZ: Yes Interpretation(s) Vital Signs Date Time Temp Pulse Resp B/P (MAP) Pulse Ox O2 Delivery O2 Flow Rate FiO2 12/13/17 13:27 86 18 166/84 (111) 99 Room Air 12/13/17 12:32 98.3 86 20 188/98 (128) 98 Room Air 180/90 (120) 12/13/17 12:30 88 20 98 Room Air 12/13/17 12:30 98.3 88 20 188/98 (128) 98 Room Air 12/13/17 12:29 98.3 88 20 188/98 (128) 98 Room Air 12/13/17 12:29 98 Room Air 12/13/17 12:11 92 20 188/98 (128) 99 EKG at 1258: NSR at 86bpm, qt/qtc: 389/432 Laboratory Tests Test 12/13/17 12:45 White Blood Count 8.4 TH/MM3 (4.0-11.0) Red Blood Count 4.19 MIL/MM3 (4.00-5.30) Hemoglobin 11.6 GM/DL (11.6-15.3) Hematocrit 36.0 % (35.0-46.0) Mean Corpuscular Volume 85.9 FL (80.0-100.0) Mean Corpuscular Hemoglobin 27.8 PG (27.0-34.0) Mean Corpuscular Hemoglobin Concent 32.3 % (32.0-36.0) Red Cell Distribution Width 12.7 % (11.6-17.2) Platelet Count 282 TH/MM3 (150-450) Mean Platelet Volume 9.4 FL (7.0-11.0) Neutrophils (%) (Auto) 69.9 % (16.0-70.0) Lymphocytes (%) (Auto) 22.4 % (9.0-44.0) Monocytes (%) (Auto) 6.0 % (0.0-8.0) Eosinophils (%) (Auto) 1.3 % (0.0-4.0) Basophils (%) (Auto) 0.4 % (0.0-2.0) Neutrophils # (Auto) 5.8 TH/MM3 (1.8-7.7) Lymphocytes # (Auto) 1.9 TH/MM3 (1.0-4.8) Monocytes # (Auto) 0.5 TH/MM3 (0-0.9) Eosinophils # (Auto) 0.1 TH/MM3 (0-0.4) Basophils # (Auto) 0.0 TH/MM3 (0-0.2) CBC Comment DIFF FINAL Differential Comment Prothrombin Time 10.1 SEC (9.8-11.6) Prothromb Time International Ratio 1.0 RATIO Activated Partial Thromboplast Time 26.3 SEC (24.3-30.1) Blood Urea Nitrogen 8 MG/DL (7-18) Creatinine 0.81 MG/DL (0.50-1.00) Random Glucose 413 MG/DL (74-106) Calcium Level 8.8 MG/DL (8.5-10.1) Magnesium Level 1.9 MG/DL (1.5-2.5) Sodium Level 138 MEQ/L (136-145) Potassium Level 4.1 MEQ/L (3.5-5.1) Chloride Level 104 MEQ/L (98-107) Carbon Dioxide Level 26.4 MEQ/L (21.0-32.0) Anion Gap 8 MEQ/L (5-15) Estimat Glomerular Filtration Rate 95 ML/MIN (>89) Total Creatine Kinase 39 U/L (26-192) Troponin I LESS THAN 0.02 NG/ML Lipase 74 U/L (73-393) Last Impressions Chest X-Ray 12/13/17 1221 Signed Impressions: CONCLUSION: Negative examination. CT Angiography 12/13/17 1221 Signed Impressions: CONCLUSION: 1. This study is negative for pulmonary embolism. Narrative Course I, Dr. Buitrago, have reviewed the advance practice practitioner's documentation and am in agreement, met with the patient face to face, made the diagnosis, and the medical decision making was done by me. *My assessment and Findings: 42 year old female with atypical chest pain. Reports that she has been having sharp and stabbing pain to her chest since this morning. Patient denies any diaphoresis or nausea vomiting with her symptoms. Symptoms were pleuritic in nature. Patient reports complete resolution of symptoms at this time. Patient reports that symptoms only lasted a few minutes and resolved on its own. Patient recently had a cervical spine surgery and is currently in a cervical collar. Patient had a full workup including one set of cardiac enzymes which were negative. CT was ordered as she recently had spinal surgery and there were concerns as patient had pleuritic chest pain. CT was negative for PE. I did go and reevaluate patient. I awoken patient from sleep, patient was not that I woke her up, reports "every time I come here, you guys wake me up and ask me all these questions. I feel fine now." I did discuss with patient that my goal is to take care of her and to assess her as I am the medical doctor taking care of her. I did attempt to review all labs and all studies with patient in detail, patient currently requesting her discharge paperwork. Patient infuriated as she was woken up from sleep. Discussed need for her to follow up with her pcp. Signs and symptoms of when to return to the ER was reviewed with patient in detail. She will follow up with her pcp and will return to ER as needed. Patient is safe to be discharged to home as she suffers no medical emergencies at this time Lynette Buitrago DO Dec 13, 2017 15:33
--- NOTE | 2017-12-14 19:24 | EKG ---
Date Performed: 12/13/2017 Time Performed: 12:58:04 PTAGE: 42 years EKG: Sinus rhythm VOLTAGE CRITERIA FOR LVH INFERIOR MYOCARDIAL INFARCTION ABNORMAL ECG PREVIOUS TRACING : 11/30/2017 02.08 Since the previous tracing, no significant change noted DOCTOR: Stan Carrillo Interpretating Date/Time 12/14/2017 19:22:57
== END 2017-12-13 16:06 | disposition home or self-care (01) ==
LOC: NEPC 12:04
DX: R07.89 Other chest pain (principal); R94.31 Abnormal electrocardiogram [ECG] [EKG]; I25.10 Atherosclerotic heart disease of native coronary artery without angina pectoris; E11.9 Type 2 diabetes mellitus without complications; E78.00 Pure hypercholesterolemia, unspecified; I11.0 Hypertensive heart disease with heart failure; I50.9 Heart failure, unspecified; F41.9 Anxiety disorder, unspecified; F17.200 Nicotine dependence, unspecified, uncomplicated
CPT/HCPCS: 71046; 71275; 80048; 82550; 83690; 83735; 84484; 85025; 85610; 85730; 93005; 99285; Q9967